=== PATIENT | female | born 1985 | race Two or more races ===

== ENCOUNTER 2021-08-23 10:09 | Outpatient (REF) | payer MEDICAID, SELFPAY ==
[2021-08-23 10:55] LABS: Binax Internal Control QC Valid; Binax Now Covid-19 Ag Positive (Negative)
== END 2021-08-23 10:10 | disposition home or self-care (01) ==
LOC: HO.LAB 10:09
PROVIDERS: Visit Provider Internal Medicine
DX: Z20.822 Contact with and (suspected) exposure to COVID-19 (principal)
CPT/HCPCS: 36415; C9803

== ENCOUNTER 2022-03-15 11:25 | Emergency (ER) | payer OTHER, SELFPAY ==
--- NOTE | ~2022-03-15 | CT_ITS ---
EXAMINATION: CT HEAD WITHOUT CONTRAST CLINICAL INFORMATION: Right upper extremity weakness 4 hours ago, hypertension. COMPARISON: None TECHNIQUE: Imaging was performed from the skull base to vertex without intravenous administration of contrast. This CT examination was performed using dose optimization techniques as appropriate, variously including the following: *Automated exposure control *Adjustment of mA and/or kV according to patient size (this includes techniques or standardized protocols for targeted exams where dose is matched to indication/reason for exam; i.e. extremities or head) *Use of iterative reconstruction technique Total exam dose length product: 759 mGy-cm FINDINGS: No intra or extra-axial fluid collection, hemorrhage, or mass. No ventriculomegaly. No midline shift or herniation. Basal cisterns are patent. Chavez-white matter differentiation is maintained. No territorial encephalomalacia. No significant volume loss. There is no abnormal attenuation within the brain parenchyma. No calvarial fracture or soft tissue abnormality. Small mucous retention cyst in the right maxillary antrum. Paranasal sinuses and mastoid air cells otherwise normally aerated. CT/CT head/brain wo con IMPRESSION: 1. No acute intracranial pathology.
[2022-03-15 12:04] VITALS: BP 221/103; PULSE 110; RESP 18; TEMP 36.7; O2SAT 99; BMI 49.7
--- NOTE | 2022-03-15 12:09 | ECG_ITS ---
Test Reason : HYPERTENSION Blood Pressure : / mmHG Vent. Rate : 114 BPM Atrial Rate : 114 BPM P-R Int : 148 ms QRS Dur : 070 ms QT Int : 328 ms P-R-T Axes : 048 -03 019 degrees QTc Int : 452 ms Sinus tachycardia Possible Left atrial enlargement Borderline ECG No previous ECGs available Referred By: Generic ED Physician Electronically Signed By:JUANPABLO MARTINEZ
[2022-03-15 12:36] LABS: MANUAL DIFF FLAG NO
[2022-03-15 12:38] VITALS: BP 185/104; PULSE 94
--- NOTE | 2022-03-15 12:38 | ED_ITS ---
HPI - Neuro Symptoms/Deficit General Chief Complaint: Neuro Symptoms/Deficit Stated Complaint: numbness/weakness in R arm Time Seen by Provider: 03/15/22 12:37 Source: patient Mode of arrival: ambulatory History of Present Illness HPI Narrative: 36-year-old female with presentation of complaints of numbness an bilateral finger tips for a proximally 1 week and then this morning at 08:00 she states that she woke up and found that her right upper extremity was weak and she was unable to hold her hair brush to brush her hair. Patient states that she waited and her symptoms gradually improved but she continued with the tingling and st ates that is also in her left hand. Patient states she had difficulties with high blood pressure during her and has not been to see a doctor afterwards. Her child is now 3 years old. She otherwise denies dizziness, visual disturbance, speech changes and denies any shortness of breath or chest pain. She has had a headache for 1 week. Related Data Allergies Allergy/AdvReac Type Severity Reaction Status Date / Time No Known Allergies Allergy Unknown Verified 03/15/22 12:04 [No Known Allergies*] Review of Systems Review of Systems: Pertinent positives and negatives as stated in HPI 10 point review of systems is otherwise negative. PMFSH Past Medical History Source: nursing notes reviewed Social History Social History Patient Tobacco Use Status: Never used Tobacco Use of substances other than those prescribed or required for medical reasons: Yes Substance Use Type: Marijuana Substance Use Frequency: Socially Advance Directives: No Advance Directives Information Provided: No Physical Exam Vital Signs: Vital Signs: Last Vital Signs Temp 98.0 F 03/15/22 12:04 Pulse 87 03/15/22 14:47 Resp 12 03/15/22 14:47 BP 156/85 H 03/15/22 14:47 Pulse Ox 97 03/15/22 14:47 O2 Del Method 03/15/22 14:47 BMI result Body Mass Index 49.7 VITAL SIGNS: Reviewed. GENERAL: Elevated BMI,Well developed, well nourished, in no acute distress. HEAD: Normocephalic/atraumatic EYES: PERRLA, EOMI EARS: Ext canals without abnormality OROPHARYNX: no oral lesions noted, posterior pharynx clear LUNGS: Normal breath sounds. No adventitious sounds or accessory muscle use. SpO2<99> CARDIOVASCULAR: Regular rate and rhythm without noted murmurs, no JVD or lower extremity edema. ABDOMEN: Soft, non-tender, non-distended with bowel sounds. MUSCULOSKELETAL: No tenderness, deformities, or effusions noted on gross inspection. EXTREMITIES: No cyanosis, clubbing or edema. SKIN: Inspection of the skin reveals no rashes NEUROLOGIC: Alert and oriented x 4. Strength and sensation to light touch were grossly intact x 4, no facial asymmetry, no pronator drift, cranial nerves 2-12 are grossly intact. Hand first cook is currently 5/5 and symmetrical. Course Course Course Narrative: 36-year-old female with history and clinical presentation consistent with suspected hypertensive urgency and subsequent neurologic deficits that have since resolved. However, will pursue CT of the head and full lab workup. Review of all investigations without acute findings to better explain patient's symptoms. Although patient NIH score was 0 on arrival, the symptoms are definitely consistent with TIA likely secondary to malignant hypertension. Patient was given aspirin and will be admitted. MDM - Neuro Symptoms/Deficit Lab Data Result diagrams: 03/15/22 12:31 03/15/22 12:31 Labs: Lab Results 03/15/22 03/15/22 03/15/22 Range/Units 12:31 12:31 12:31 WBC 8.1 (4.8-10.8) X10*3/uL RBC 4.92 (4.20-5.50) X10*6/uL Hgb 14.2 (12.0-16.0) g/dl Hct 41.4 (37.0-47.0) % MCV 84.1 (80.0-98.0) fL MCH 28.9 (27.0-33.0) pg MCHC 34.3 (31.0-35.0) g/dl RDW 13.0 (11.0-16.0) % Plt Count 239 (160-400) X10*3/uL MPV 11.1 (9.4-12.3) fL Immature Gran % (Auto) 0.6 H (0.0-0.4) % Neut % (Auto) 57.4 (45-73) % Lymph % (Auto) 32.7 (20-40) % [place] % (Auto) 6.6 (2-11) % Eos % (Auto) 2.5 (0-4) % Baso % (Auto) 0.2 (0-2) % Lymph # (Auto) 2.6 (1.2-4.9) X10*3/uL [place] # (Auto) 0.5 (0.1-1.2) X10*3/uL Eos # (Auto) 0.2 (0.0-0.4) X10*3/uL Baso # (Auto) 0.0 (0.0-0.2) X10*3/uL Abs Immat Gran (auto) 0.05 H (0.00-0.03) X10*3/uL Absolute Neuts (auto) 4.6 (2.0-8.3) x10*3/uL Absolute Nucleated RBC 0.000 (0.0-0.012) X10*3/uL Nucleated RBC % (auto) 0.0 (0.0-0.2) /100WBC PT (10.0-13.1) SEC INR (0.9-1.1) Sodium 140 (135-145) mmol/L Potassium 3.7 (3.3-5.1) mmol/L Chloride 105 (96-108) mmol/L Carbon Dioxide 26 (22-29) mmol/L Anion Gap 13 (12-20) BUN 9 (9-16) mg/dL Creatinine 0.72 (0.5-1.4) mg/dL Estim Creat Clear Calc 126.5 Estimated GFR > 60 Random Glucose 105 (60-115) mg/dL Calcium 9.1 (8.4-10.2) mg/dL Magnesium 1.8 (1.6-2.6) mg/dL Troponin I High Sens < 3.5 (<3.5-17.0) ng/L Beta HCG, Quant < 2 mIU/mL Urine Color Urine Appearance Urine pH (5.0-8.0) Ur Specific [place] (1.005-1.025) Urine Protein (NEG-TRACE) MG/DL Urine Glucose (UA) (NEG) MG/DL Urine Ketones (NEG) MG/DL Urine Blood (NEG) Urine Nitrite (NEG) Ur Leukocyte Esterase (NEG) Urine Test (NEGATIVE) 03/15/22 03/15/22 03/15/22 Range/Units 13:33 14:01 14:01 WBC (4.8-10.8) X10*3/uL RBC (4.20-5.50) X10*6/uL Hgb (12.0-16.0) g/dl Hct (37.0-47.0) % MCV (80.0-98.0) fL MCH (27.0-33.0) pg MCHC (31.0-35.0) g/dl RDW (11.0-16.0) % Plt Count (160-400) X10*3/uL MPV (9.4-12.3) fL Immature Gran % (Auto) (0.0-0.4) % Neut % (Auto) (45-73) % Lymph % (Auto) (20-40) % [place] % (Auto) (2-11) % Eos % (Auto) (0-4) % Baso % (Auto) (0-2) % Lymph # (Auto) (1.2-4.9) X10*3/uL [place] # (Auto) (0.1-1.2) X10*3/uL Eos # (Auto) (0.0-0.4) X10*3/uL Baso # (Auto) (0.0-0.2) X10*3/uL Abs Immat Gran (auto) (0.00-0.03) X10*3/uL Absolute Neuts (auto) (2.0-8.3) x10*3/uL Absolute Nucleated RBC (0.0-0.012) X10*3/uL Nucleated RBC % (auto) (0.0-0.2) /100WBC PT 11.4 (10.0-13.1) SEC INR 1.0 (0.9-1.1) Sodium (135-145) mmol/L Potassium (3.3-5.1) mmol/L Chloride (96-108) mmol/L Carbon Dioxide (22-29) mmol/L Anion Gap (12-20) BUN (9-16) mg/dL Creatinine (0.5-1.4) mg/dL Estim Creat Clear Calc Estimated GFR Random Glucose (60-115) mg/dL Calcium (8.4-10.2) mg/dL Magnesium (1.6-2.6) mg/dL Troponin I High Sens (<3.5-17.0) ng/L Beta HCG, Quant mIU/mL Urine Color YELLOW Urine Appearance HAZY Urine pH 7.0 (5.0-8.0) Ur Specific [place] 1.020 (1.005-1.025) Urine Protein NEG (NEG-TRACE) MG/DL Urine Glucose (UA) NEG (NEG) MG/DL Urine Ketones NEG (NEG) MG/DL Urine Blood NEG (NEG) Urine Nitrite NEG (NEG) Ur Leukocyte Esterase NEG (NEG) Urine Test NEGATIVE (NEGATIVE) ECG Data Attestation: I personally reviewed and interpreted this ECG as follows: Prior ECG tracings: not available for review Interpretation: Sinus tachycardia, HR- 114, no STEMI, HI /QRS /QTC are within normal limits. Discharge Plan Discharge Clinical Impression: TIA (transient ischemic attack), Malignant hypertension Patient Disposition: Still a Patient
[2022-03-15 12:45] LABS: Basophils Percent Auto 0.2 % (0-2); Eosinophils Absolute Auto 0.2 X10*3/uL (0.0-0.4); Eosinophils Percent Auto 2.5 % (0-4); Hematocrit 41.4 % (37.0-47.0); Hemoglobin 14.2 g/dl (12.0-16.0); Imm Gran Abs Auto 0.05 X10*3/uL (0.00-0.03); Imm Gran Pct Auto 0.6 % (0.0-0.4); Lymphocytes Absolute Auto 2.6 X10*3/uL (1.2-4.9); Lymphocytes Percent Auto 32.7 % (20-40); Mean Corpuscular HGB Conc 34.3 g/dl (31.0-35.0); Mean Corpuscular Hemoglobin 28.9 pg (27.0-33.0); Mean Corpuscular Volume 84.1 fL (80.0-98.0); Mean Platelet Volume 11.1 fL (9.4-12.3); Monocytes Absolute Auto 0.5 X10*3/uL (0.1-1.2); Monocytes Percent Auto 6.6 % (2-11); Neutrophils Absolute Auto 4.6 x10*3/uL (2.0-8.3); Neutrophils Percent Auto 57.4 % (45-73); Platelet Count 239 X10*3/uL (160-400); Red Blood Count 4.92 X10*6/uL (4.20-5.50); White Blood Count 8.1 X10*3/uL (4.8-10.8)
[2022-03-15 12:48] VITALS: BP 170/102; PULSE 103; RESP 18
[2022-03-15 12:53] LABS: Anion Gap 13 (12-20); Blood Urea Nitrogen 9 mg/dL (9-16); Calcium 9.1 mg/dL (8.4-10.2); Carbon Dioxide 26 mmol/L (22-29); Chloride 105 mmol/L (96-108); Creatinine Clr Calc Pharmacy 126.5; Estimated Glomerular Filt Rate > 60; Glucose Random 105 mg/dL (60-115); Potassium 3.7 mmol/L (3.3-5.1); Sodium 140 mmol/L (135-145)
[2022-03-15 12:59] LABS: Troponin-I High Sensitivity < 3.5 ng/L (<3.5-17.0)
[2022-03-15 13:30] LABS: Magnesium 1.8 mg/dL (1.6-2.6)
[2022-03-15 13:36] LABS: HCG Quantitative < 2 mIU/mL
[2022-03-15 13:52] LABS: Prothrombin Time 11.4 SEC (10.0-13.1)
[2022-03-15 14:19] LABS: Appearance Urine HAZY; Color Urine YELLOW; Glucose Urine UA NEG (NEG); Leukocyte Esterase Urine NEG (NEG); Nitrite Urine NEG (NEG); Urine Blood NEG (NEG); Urine Ketones NEG (NEG); Urine Protein NEG (NEG-TRACE)
[2022-03-15 14:21] LABS: UPreg QC Valid YES; Urine Pregnancy NEGATIVE (NEGATIVE)
[2022-03-15 14:47] VITALS: BP 156/85; PULSE 87; RESP 12; O2SAT 97
[2022-03-15 16:08] LABS: IDNOW Serial# 55D5AD1C
[2022-03-15 16:09] LABS: COVID-19 Test Negative (Negative)
[2022-03-15] MEDS: Aspirin 81 MG TAB.CHEW PO (16:12)
[2022-03-15 16:13] VITALS: BP 143/88; PULSE 104
[2022-03-15 17:33] VITALS: BP 148/78; PULSE 90; RESP 18
== END 2022-03-15 18:49 | disposition home or self-care (01) ==
PROVIDERS: Student in an Organized Health Care Education/Training Program; Emergency Provider Emergency Medicine
DX: I10 Essential (primary) hypertension (principal); R00.0 Tachycardia, unspecified; R20.0 Anesthesia of skin; R53.1 Weakness; Z20.822 Contact with and (suspected) exposure to COVID-19; F12.90 Cannabis use, unspecified, uncomplicated
CPT/HCPCS: 36415; 70450; 80048; 81003; 81025; 83735; 84484; 84702; 85025; 85610; 87635; 93005; 99284; 99285

== ENCOUNTER 2022-04-05 02:56 | Inpatient (IN) | payer OTHER, SELFPAY ==
[2022-04-05] VITALS (15 sets, daily range): BP systolic 121–196; BP diastolic 65–120; PULSE 64–145; RESP 16–26; TEMP 36.3–37.2; O2SAT 96–100; BMI 49.1
--- NOTE | ~2022-04-05 | CT_ITS ---
EXAMINATION: CT HEAD WITHOUT CONTRAST CLINICAL INFORMATION: Unable to move right hand, rule out intracranial abnormality. COMPARISON: 03/15/[address] scan. TECHNIQUE: Contiguous axial imaging was performed from the skull base to vertex without intravenous administration of contrast. Coronal and sagittal reformatted images were obtained. This CT examination was performed using dose optimization techniques as appropriate, variously including the following: *Automated exposure control *Adjustment of mA and/or kV according to patient size (this includes techniques or standardized protocols for targeted exams where dose is matched to indication/reason for exam; i.e. extremities or head) *Use of iterative reconstruction technique DLP: 737 mGy-cm FINDINGS: There is no evidence of acute intracranial hemorrhage or territorial infarction. No abnormal mass effect or midline shift is seen. Chavez to white matter differentiation is well preserved. No extra-axial fluid collections are identified. The ventricles are normal in size. There is no abnormal attenuation within the brain parenchyma. The osseous structures and soft tissues are normal. The right maxillary polyp versus retention cyst is seen along the right posterior margin measuring 1.2 cm without significant change (image 98, series 6. A smaller polyp is seen towards the base. CT/CT head/brain wo con IMPRESSION: No acute intracranial pathology.
--- NOTE | ~2022-04-05 | MR_ITS ---
EXAMINATION: MRI BRAIN WITHOUT CONTRAST CLINICAL INFORMATION: Right hand weakness. COMPARISON: CT scan of the head 04/05/2022, 03/15/2022. TECHNIQUE: Multiplanar MR imaging of the brain was performed without contrast. FINDINGS: There are multiple foci of restricted diffusion involving the cortical funk matter of the left superior parietal lobule near the vertex and the left frontal lobe. There are also scattered foci of restricted diffusion involving the left centrum semiovale primarily distributed between the major vascular territories of the left hemisphere. These findings are superimposed upon a few scattered chronic small vessel ischemic changes within the periventricular white matter. No pathological magnetic susceptibility artifact. Intracranial vascular flow voids are grossly maintained. There is no intracranial mass effect or midline shift. No abnormal extra-axial collection. Lateral and third ventricles are normal. No hydrocephalus. Midline structures including the cervicomedullary junction are normal. No acute bone marrow signal changes. There is no mastoid middle ear effusion. Mild paranasal sinus mucosal thickening within the ethmoid air cells and there is a retention cyst within the alveolar recess of the right maxillary sinus. Globes and orbits are symmetric. MR/MR head/brain wo con IMPRESSION: There are multiple acute watershed infarcts primarily distributed between the major vascular territories of the left cerebral hemisphere involving the frontal and parietal lobes. These acute findings are superimposed upon a few scattered chronic small vessel ischemic changes within the periventricular white matter. No intracranial mass effect or hydrocephalus. No evidence of acute hemorrhage.
--- NOTE | ~2022-04-05 | CT_ITS ---
EXAMINATION: CT angio head neck stroke CLINICAL INFORMATION: Right hand weakness. Abnormal brain MRI. COMPARISON: Brain MRI 04/05/2022. TECHNIQUE: Cancellation Clerk images were obtained. A CT angiogram of the head and neck was performed in the arterial phase after the intravenous administration of 75 mL Omnipaque 350. Delayed postcontrast images of the head were also obtained. MIP reconstructions were generated in multiple orientations at the acquisition workstation. Multiple three-dimensional surface rendered images and maximum intensity projection images were generated on a dedicated 3-D lab workstation. Arterial stenoses are measured in accordance with NASCET criteria or similar method if applicable. This CT examination was performed using dose optimization techniques as appropriate, including one or more of the following: Automated exposure control, iterative reconstruction, and adjustment of technique factors (mA and/or kVp) according to patient size (this includes techniques or standardized protocols for targeted exams where dose is matched to indication/reason for exam). Total exam dose-length product 1552 mGy-cm FINDINGS: Head: There is loss of funk-white matter differentiation involving the left superior parietal lobule and a few small foci of hypoattenuation within the cortical funk matter of the left frontal lobe near the vertex. These findings coincide with the known acute infarcts better demonstrated on recent MR imaging of the brain from 04/05/2022. Postcontrast images reveal no abnormal intracranial mass or enhancement. There is no intracranial mass effect or midline shift. Lateral and third ventricles are normal. No hydrocephalus. The calvarium and skull base are intact. No mastoid or middle ear effusion. No active paranasal sinus disease with exception of a small retention cysts within the right maxillary sinus. CT angiogram neck: The aortic arch apex is normal. Origins of the major aortic branches are widely patent. Common carotid arteries and the carotid bifurcations are normal. No stenosis of the extracranial internal carotid arteries. The cervical segments of the vertebral arteries as well as their origins are patent. CT angiogram head: There is focal high-grade stenosis involving the left internal carotid artery at the junction of the cavernous and supraclinoid segments best depicted on axial image 384 of 1087 series 7. The right intracranial internal carotid artery is patent. There is also an anteriorly projecting contour abnormality involving the supraclinoid segment of left internal carotid artery measuring 2.3 mm from base apex that may either represent an aneurysm or prominent vascular infundibulum. There is high-grade stenosis or occlusion of the left ventral dural vertebral artery. The dominant right vertebral artery is patent and continues as the basilar. Anterior, middle, and posterior cerebral artery complexes are otherwise normal. Other: Soft tissues of the neck including the thyroid gland are normal. Grossly no pathologically enlarged cervical lymph nodes. Visualized lung apices are clear. There is no acute osseous finding. Specifically no worrisome lytic or blastic osseous lesion. Grossly no evidence of spinal canal compromise. CT/CT angio head neck stroke IMPRESSION: There is focal high-grade narrowing involving the left intracranial internal carotid artery at the junction of the cavernous and supraclinoid segments which provides an explanation for the patient's acute watershed infarcts. The left intradural vertebral artery is hypoplastic or occluded. The dominant right vertebral artery continues as the basilar. Otherwise no intracranial large vessel occlusion. No stenosis of the cervical carotid or vertebral arteries. Of note there is an inferiorly projecting contour abnormality involving the supraclinoid segment of the left internal carotid artery measuring 2.3 mm from base apex that may either represent a vascular infundibulum or small aneurysm.
--- NOTE | ~2022-04-05 | XR_ITS ---
EXAMINATION: XR CHEST CLINICAL INFORMATION: Stroke. COMPARISON: None TECHNIQUE: Frontal view of the chest was obtained. FINDINGS: No significant abnormality is noted involving the heart, lungs, mediastinum, bony thorax or soft tissues. XR/XR chest 1V IMPRESSION: No acute cardiopulmonary process.
--- NOTE | 2022-04-05 03:19 | ECG_ITS ---
Test Reason : NUMBINESS Blood Pressure : / mmHG Vent. Rate : 110 BPM Atrial Rate : 110 BPM P-R Int : 130 ms QRS Dur : 066 ms QT Int : 338 ms P-R-T Axes : 059 002 -02 degrees QTc Int : 457 ms Sinus tachycardia Possible Inferior infarct , age undetermined Abnormal ECG When compared with ECG of 15-MAR-2022 12:17, No significant change was found Referred By: Generic ED Physician Electronically Signed By:EMILY SEGOVIA
--- NOTE | 2022-04-05 07:00 | ED_ITS ---
HPI - General Adult General Chief complaint: General Medical Stated complaint: numbness on right hand , headaches Time Seen by Provider: 04/05/22 06:59 Source: patient Mode of arrival: ambulatory Limitations: no limitations History of Present Illness HPI narrative: 36-year-old female came in with complaint of numbness and weakness of the right hand started since 19:00 last night after she woke up from sleep, no recent trauma or injury to the right hand, no other neurological symptoms, otherwise able to ambulate with steady gait, able to speak in normal pattern, no weakness in the right arm or forearm just the right hand distal to the right wrist, patient is right-hand dominant. Patient was seen in the ED 20 days ago for similar presentation, was diagnosed with musculoskeletal problem likely carpal tunnel syndrome patient work as a [employer]. Patient had similar symptoms 20 days ago but the weakness improved, patient had underlying carpal tunnel syndrome and thawed that the numbness is due to the carpal tunnel. this time symptoms have been persistent since last night. Patient does not take contraceptive pills or any hormonal therapy, no family history of strokes in particular at young age, past medical history only significant for hypertension and patient is compliant with her medication. Patient had CT head 20 days ago which was unremarkable for stroke. Related Data Previous Rx's Medication Instructions Recorded valsartan 80 mg tablet 80 mg PO DAILY #30 tabs 03/15/22 Allergies Allergy/AdvReac Type Severity Reaction Status Date / Time No Known Allergies Allergy Unknown Verified 03/15/22 12:04 [No Known Allergies*] Review of Systems Review of Systems: All other systems are reviewed and are negative Constitutional: Reports as per HPI and Reports no additional constitutional complaints Eyes: Reports as per HPI and Reports no additional eye complaints Reports system reviewed and no additional complaints, except as documented Cardiovascular: Reports as per HPI and Reports no additional cardiovascular complaints Respiratory: Reports as per HPI and Reports no additional respiratory complaints Gastrointestinal: Reports as per HPI and Reports no additional gastrointestinal complaints Genitourinary: Reports no additional female genitourinary complaints Musculoskeletal: Reports no additional musculoskeletal complaints Skin/Breast: Reports system reviewed and no additional complaints, except as docu Psychiatric: Reports no additional psychiatric complaints Endocrine: Reports no additional endocrine complaints Hematologic/Lymphatic: Reports no additional hematologic/lymphatic complaints Allergic/Immunologic: Reports no additional allergic/immunologic complaints Reports system reviewed and no additional complaints, except as documented and Reports Abnormal speech present [facility] Past Medical History Medical History (Updated 04/05/22 @ 15:41 by Juliocesar Hull MD) Hypertension Morbid obesity Surgical History (Updated 04/05/22 @ 15:47 by Juliocesar Hull MD) Previous section Family History Family History (Updated 04/05/22 @ 15:47 by Juliocesar Hull MD) Other No family history of cerebrovascular accident (CVA) Social History Social History Patient Tobacco Use Status: Never used Tobacco Substance Use Type: Marijuana Advance Directives: No Physical Exam ED Vital Signs: Vital Signs - 24 hr 04/05/22 03:28 04/05/22 04:57 04/05/22 06:23 Temperature 97.4 F 98.0 F 98.2 F Pulse Rate 115 H 64 100 Respiratory Rate 16 16 16 Blood Pressure 165/85 H 164/76 H 159/66 H Pulse Oximetry 98 98 98 Oxygen Delivery Method Room Air Room Air Room Air 04/05/22 08:00 04/05/22 09:42 04/05/22 10:00 Temperature 98.3 F 98.3 F 98.5 F Pulse Rate 90 68 90 Respiratory Rate 18 16 16 Blood Pressure 160/79 H 121/81 125/70 Pulse Oximetry 98 97 98 Oxygen Delivery Method Room Air Room Air Room Air 04/05/22 12:00 04/05/22 14:00 04/05/22 14:20 Temperature 97.7 F 98.7 F 98.9 F Pulse Rate 100 70 108 H Respiratory Rate 17 17 Blood Pressure 137/65 137/69 196/120 H Pulse Oximetry 100 98 96 Oxygen Delivery Method Room Air Room Air Room Air 04/05/22 14:47 04/05/22 15:32 Temperature 98.8 F Pulse Rate 103 H 120 H Respiratory Rate 16 20 Blood Pressure 187/120 H 150/71 H Pulse Oximetry 96 97 Oxygen Delivery Method Room Air Room Air BMI result Body Mass Index 49.1 Vital signs have been reviewed as appeared to be correct. Blood pressure normal. Heart rate normal. Respiration rate normal. Temperature normal. Oxygen saturation normal. Appearance: Alert. Oriented X3. No acute distress. Head: Normal external exam. Normocephalic. Atraumatic. No Fisher signs noted. No raccoon eyes noted Eyes: PERRLA. EOMI. Conjunctiva and sclera normal. Eyelids normal. ENT: TM's Normal. Pharynx normal. Uvula midline. Moist mucous membranes. No trismus noted. No drooling noted. No muffled voice noted. Neck: Normal inspection. Neck supple. FROM. No adenopathy. Thyroid Normal. No meningeal signs. No neck mass noted. CVS: Normal heart rate and rhythm. Heart sound normal. No murmurs noted. Pulses normal throughout. Respiratory: No respiratory distress. Painless inspiration. Breath sounds normal. No wheezes/rales/rhonchi noted. Chest nontender. No accessory muscle usage noted or decreased air movement noted. Abdomen: Soft and nontender. Bowel sounds normal in all 4 quadrants. No distention noted. No organomegaly noted. No visible injury noted. Back: No CVA tenderness. Full range of motion noted. Skin: Skin warm and dry. Normal skin color. Normal skin turgor. No rashes/lesions/lacerations noted. Extremities: Right hand: Good radial pulse, cap refill less than 2 seconds, increased numbness in the right hand, significant weakness on flexion and ext ension distal to the wrist. Neuro: Oriented X 3. Cranial nerve exam: II-XII are grossly intact No motor deficit. No sensory deficit. Reflexes normal. Right hand weakness as described above. NIH Stroke Scale Level of Consciousness: Alert Level of Consciousness Questions: Answers both questions correctly Level of Consciousness Commands: Performs both tasks correctly Best Gaze: Normal Visual: No visual loss Facial Palsy: Normal Motor Arm (Right): No effort against gravity (Right hand at the right wrist) Motor Arm (Left): No drift Motor Leg (Right): No drift Motor Leg (Left): No drift Limb Ataxia: Absent Sensory: Mild to moderate sensory loss (Right hand and right arm) Best Language: No aphasia Dysarthia: Normal Extinction and Inattention: No abnormality Score: 4 Course Course Course Narrative: This is unfortunate 36-year-old female came in for evaluation of right hand weakness, and numbness, patient been having chronic numbness secondary to right carpal tunnel syndrome on the right hand, NIH score is 4 given 3 for significant weakness on the right hand and 1 for decreased light touch sensation in the right forearm, patient initially presented to the ED at 03:00 about 8 hours after the symptoms started which make the patient out of the window for thrombolysis, patient had a CT head which was unremarkable then we proceeded to MRI of the head which 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 Initially patient was given Solu-Medrol aiming to treat severe carpal tunnel syndrome. Reevaluation(s) Reevaluation #1: The case discussed with Dr. Carpenter the intervention neurologist at [facility], patient is not a candidate for mechanical thrombectomy since MRI DWI positive for stroke changes. Transfer was declined. Case discussed with Dr. Larios recommended to start the patient on subQ heparin, and gradual management of blood pressure, and admit. Time: 14:15 Medical Decision Making Medical Records Medical records reviewed: Yes I reviewed the patient's medical records. Lab Data Lab results reviewed: Yes I reviewed the patient's lab results. Result diagrams: 04/05/22 07:56 04/05/22 07:56 Labs: Lab Results 04/05/22 04/05/22 04/05/22 Range/Units 07:56 07:56 07:56 WBC 10.4 (4.8-10.8) X10*3/uL RBC 5.07 (4.20-5.50) X10*6/uL Hgb 14.5 (12.0-16.0) g/dl Hct 42.5 (37.0-47.0) % MCV 83.8 (80.0-98.0) fL MCH 28.6 (27.0-33.0) pg MCHC 34.1 (31.0-35.0) g/dl RDW 13.1 (11.0-16.0) % Plt Count 270 (160-400) X10*3/uL MPV 10.8 (9.4-12.3) fL Immature Gran % (Auto) 0.5 H (0.0-0.4) % Neut % (Auto) 73.5 H (45-73) % Lymph % (Auto) 19.8 L (20-40) % [place] % (Auto) 5.3 (2-11) % Eos % (Auto) 0.6 (0-4) % Baso % (Auto) 0.3 (0-2) % Lymph # (Auto) 2.1 (1.2-4.9) X10*3/uL [place] # (Auto) 0.6 (0.1-1.2) X10*3/uL Eos # (Auto) 0.1 (0.0-0.4) X10*3/uL Baso # (Auto) 0.0 (0.0-0.2) X10*3/uL Abs Immat Gran (auto) 0.05 H (0.00-0.03) X10*3/uL Absolute Neuts (auto) 7.6 (2.0-8.3) x10*3/uL Absolute Nucleated RBC 0.000 (0.0-0.012) X10*3/uL Nucleated RBC % (auto) 0.0 (0.0-0.2) /100WBC Sodium 139 (135-145) mmol/L Potassium 4.3 (3.3-5.1) mmol/L Chloride 106 (96-108) mmol/L Carbon Dioxide 23 (22-29) mmol/L Anion Gap 14 (12-20) BUN 11 (9-16) mg/dL Creatinine 0.80 (0.5-1.4) mg/dL Estim Creat Clear Calc 115.3 Estimated GFR > 60 Random Glucose 132 H (60-115) mg/dL Calcium 9.0 (8.4-10.2) mg/dL Total Bilirubin 0.2 (0.0-1.0) mg/dL Direct Bilirubin < 0.2 (0.0-0.5) mg/dL AST 22 (5-31) U/L ALT 49 H (0-31) U/L Alkaline Phosphatase 86 (39-117) U/L Troponin I High Sens < 3.5 (<3.5-17.0) ng/L Total Protein 7.8 (6.5-8.0) g/dL Albumin 4.5 (3.5-5.0) g/dL Lipase 24 (8-78) U/L Imaging Data CT scan - head: Attestation: I personally reviewed and interpreted this imaging study as follows: Radiologist's impression: There is no evidence of acute intracranial hemorrhage or territorial infarction. No abnormal mass effect or midline shift is seen. Chavez to white matter differentiation is well preserved. No extra-axial fluid collections are identified. The ventricles are normal in size. There is no abnormal attenuation within the brain parenchyma. The osseous structures and soft tissues are normal. The right maxillary polyp versus retention cyst is seen along the right posterior margin measuring 1.2 cm without significant change (image 98, series 6. A smaller polyp is seen towards the base. ? Head MRI: Attestation: I personally reviewed and interpreted this imaging study as follows: Radiologist's impression: There are multiple acute watershed infarcts primarily distributed between the major vascular territories of the left cerebral hemisphere involving the frontal and parietal lobes. These acute findings are superimposed upon a few scattered chronic small vessel ischemic changes within the periventricular white matter. No intracranial mass effect or hydrocephalus. No evidence of acute hemorrhage.? Critical Care Time Critical Care Time Critical Care Time: Yes Total Critical Care Time: 60 Attestation: I spent 60 minutes providing critical care service to the patient, this including time spent at the bedside to evaluate the patient, reassess the patient, monitoring vital signs, review labs, and radiographic studies, counseling the patient/family, discussing the case with consultants, disposition the patient. Discharge Plan Discharge Clinical Impression: Stroke Patient Disposition: Admitted As Inpatient
[2022-04-05 08:00] LABS: MANUAL DIFF FLAG NO
[2022-04-05 08:01] LABS: Basophils Percent Auto 0.3 % (0-2); Eosinophils Absolute Auto 0.1 X10*3/uL (0.0-0.4); Eosinophils Percent Auto 0.6 % (0-4); Hematocrit 42.5 % (37.0-47.0); Hemoglobin 14.5 g/dl (12.0-16.0); Imm Gran Abs Auto 0.05 X10*3/uL (0.00-0.03); Imm Gran Pct Auto 0.5 % (0.0-0.4); Lymphocytes Absolute Auto 2.1 X10*3/uL (1.2-4.9); Lymphocytes Percent Auto 19.8 % (20-40); Mean Corpuscular HGB Conc 34.1 g/dl (31.0-35.0); Mean Corpuscular Hemoglobin 28.6 pg (27.0-33.0); Mean Corpuscular Volume 83.8 fL (80.0-98.0); Mean Platelet Volume 10.8 fL (9.4-12.3); Monocytes Absolute Auto 0.6 X10*3/uL (0.1-1.2); Monocytes Percent Auto 5.3 % (2-11); Neutrophils Absolute Auto 7.6 x10*3/uL (2.0-8.3); Neutrophils Percent Auto 73.5 % (45-73); Platelet Count 270 X10*3/uL (160-400); Red Blood Count 5.07 X10*6/uL (4.20-5.50); Red Cell Distribution Width 13.1 % (11.0-16.0); White Blood Count 10.4 X10*3/uL (4.8-10.8)
[2022-04-05 08:16] LABS: Alanine Aminotransferase 49 U/L (0-31); Albumin Level 4.5 g/dL (3.5-5.0); Alkaline Phosphatase 86 U/L (39-117); Anion Gap 14 (12-20); Aspartate Amino Transferase 22 U/L (5-31); Bilirubin Direct < 0.2 mg/dL (0.0-0.5); Bilirubin Total 0.2 mg/dL (0.0-1.0); Blood Urea Nitrogen 11 mg/dL (9-16); Carbon Dioxide 23 mmol/L (22-29); Chloride 106 mmol/L (96-108); Creatinine Clr Calc Pharmacy 115.3; Estimated Glomerular Filt Rate > 60; Glucose Random 132 mg/dL (60-115); Lipase 24 U/L (8-78); Potassium 4.3 mmol/L (3.3-5.1); Sodium 139 mmol/L (135-145); Total Protein 7.8 g/dL (6.5-8.0)
[2022-04-05 08:22] LABS: Troponin-I High Sensitivity < 3.5 ng/L (<3.5-17.0)
[2022-04-05] MEDS: methylPREDNISolone Sod Succ 125 MG/2 ML VIAL IVPUSH (09:28)
[2022-04-05] MEDS: LORazepam 1 MG TABLET PO (13:09)
[2022-04-05] MEDS: iohexoL 350 MG/ML 100 ML INFUS..BTL 70 ML IV (13:42)
--- NOTE | 2022-04-05 14:33 | PC.NURSE ---
Provider asked to reach [facility] to possible transfer to Neuro Intervention. Call was placed at [phone] awaiting call back.
--- NOTE | 2022-04-05 14:56 | PC.NURSE ---
Addendum entered by Celia Alonos RN 04/05/22 15:01: Pt ambulating independently and steadily with no issue. Denies dizziness, nausea. Pt managing own secretions with no issue. Aware of plan for care. Pt hypertensive, HR in low 100s, stating she has not taken rxs this am. MD made aware. Original Note: Pt cont presentation of right arm weakness. No facial droop, oriented x 3. Speech is coherent, Strength equal bila in both legs.
[2022-04-05] MEDS: amLODIPine Besylate 10 MG TABLET PO (15:11)
--- NOTE | 2022-04-05 15:29 | PC.NURSE ---
sinus tach on monitor.
[2022-04-05 15:50] LABS: COVID-19 Test Negative (Negative); IDNOW Serial# 16C4AD1C
--- NOTE | 2022-04-05 16:08 | PHA.MEDREC ---
Pharmacy Consult ? Medication Reconciliation Pharmacy has completed the medication reconciliation.
--- NOTE | 2022-04-05 16:16 | P.HPHOSP_ITS ---
History of Present Illness Date of Service: 04/05/22 Chief Complaint: Right hand weakness 36-year-old female presented with right hand weakness. Patient states that at 19:00 on day prior to presentation she experienced sudden onset of right handed weakness, inability to pressure here. Associated with numbness and tingling along her right arm. This was similar to presentation that she had on 03/15/2022 which had quickly resolved by time of presentation to the ED on that date and was diagnosis carpal tunnel. On current presentation symptoms did not resolve. In ED she was noted to be significantly hypertensive with systolic blood pressures up to 200. MRI showed acute watershed infarcts in the left parietal and frontal lobes and CTA showed left intracranial internal carotid stenosis. Due to timing window and appearance of CVA on MRI patient was deemed not to be candidate for intervention. Review of Systems Review of Systems: Constitutional: Denies fever, denies Chills Eyes: denies blurry vision ENT: denies sore throat CVS: denies chest pain Respiratory: has AURORA, does not tolerate cpap GI: no abdominal pain : denies dysuria MSK: denies neck pain Skin: denies rash Neuro: see hpi Psych: denies suicidal ideation Endocrine: denies heat/cold intolerance Hematologic: denies easy bleeding Allergy: denies hives [facility] Medical History Fatty liver Hypertension Morbid obesity AURORA (obstructive sleep apnea) Family History Other No family history of cerebrovascular accident (CVA) Surgical History Previous section Social History Patient Tobacco Use Status: Never used Tobacco Substance Use Type: Marijuana Advance Directives: No Advance Directives Information Provided: No Meds Allergies Allergy/AdvReac Type Severity Reaction Status Date / Time No Known Allergies Allergy Unknown Verified 03/15/22 12:04 [No Known Allergies*] Active Medications: Current Medications Atorvastatin Calcium (Atorvastatin Calcium 80 Mg Tablet) 80 mg PO BEDTIME [facility] Enoxaparin Sodium (Enoxaparin Sodium 100 Mg/Ml Syringe) 100 mg SUBCUT Q12H [facility] Pharmacy Consult (Consult Rx Perform Med Rec) 1 each MISCELLANE ONCE PRN PRN Reason: Consult order Pharmacy Consult (Consult Rx Perform Med Rec) 1 each MISCELLANE ONCE PRN PRN Reason: Consult order Physical Exam Vital Signs and Narrative: Vital Signs: Last Vital Signs Temp 98.8 F 04/05/22 14:47 Pulse 120 H 04/05/22 15:32 Resp 20 04/05/22 15:32 BP 150/71 H 04/05/22 15:32 Pulse Ox 97 04/05/22 15:32 O2 Del Method 04/05/22 15:32 BMI result Body Mass Index 49.1 General: no acute distress HEENT: atraumatic Neck: normal to visual inspection CVS: S1, S2, RRR Resp: CTA bilateral Chest: non tender GI: soft, non tender, non distended : no CVA tenderness Skin: no rashes Extremities: no edema Neuro: Oriented X3, right upper extremity, proximal 4/5, distal 0-1/5 Psych: cooperative Results Labs CBC and Chem 7: 04/05/22 07:56 04/05/22 07:56 Labs: Laboratory Results - last 24 hr 04/05/22 04/05/22 04/05/22 07:56 07:56 15:30 MCV 83.8 MCH 28.6 MCHC 34.1 RDW 13.1 Plt Count 270 MPV 10.8 Immature Gran % (Auto) 0.5 H Neut % (Auto) 73.5 H Lymph % (Auto) 19.8 L Lucas % (Auto) 5.3 Eos % (Auto) 0.6 Baso % (Auto) 0.3 Lymph # (Auto) 2.1 Lucas # (Auto) 0.6 Eos # (Auto) 0.1 Baso # (Auto) 0.0 Abs Immat Gran (auto) 0.05 H Absolute Neuts (auto) 7.6 Absolute Nucleated RBC 0.000 Nucleated RBC % (auto) 0.0 Anion Gap 14 Estim Creat Clear Calc 115.3 Estimated GFR > 60 Random Glucose 132 H Calcium 9.0 Total Bilirubin 0.2 Direct Bilirubin < 0.2 AST 22 ALT 49 H Alkaline Phosphatase 86 Total Protein 7.8 Albumin 4.5 Lipase 24 COVID-19 (EFREN) Negative COVID-19 Clin Com See Note Imaging Radiologist's Impressions: Impressions Head CT 04/05/22 08:00 IMPRESSION: No acute intracranial pathology. Brain MRI 08/20/22 11:50 IMPRESSION: There are multiple acute watershed infarcts primarily distributed between the major vascular territories of the left cerebral hemisphere involving the frontal and parietal lobes. These acute findings are superimposed upon a few scattered chronic small vessel ischemic changes within the periventricular white matter. No intracranial mass effect or hydrocephalus. No evidence of acute hemorrhage. Head/Neck CTA 04/05/22 13:46 IMPRESSION: There is focal high-grade narrowing involving the left intracranial internal carotid artery at the junction of the cavernous and supraclinoid segments which provides an explanation for the patient's acute watershed infarcts. The left intradural vertebral artery is hypoplastic or occluded. The dominant right vertebral artery continues as the basilar. Otherwise no intracranial large vessel occlusion. No stenosis of the cervical carotid or vertebral arteries. Of note there is an inferiorly projecting contour abnormality involving the supraclinoid segment of the left internal carotid artery measuring 2.3 mm from base apex that may either represent a vascular infundibulum or small aneurysm. Chest X-Ray 04/05/22 15:31 IMPRESSION: No acute cardiopulmonary process. Assessment and Plan (1) Stroke: Status: Acute Plan 36F with pmh of htn, morbid obesity, aurora presented with right upper extremity weakness, found to have acute cva. acute ischemic left parietal/frontal CVA d/w neuro - high intensity statin, therapeutic lovenox, check echo, monitor on tele, check a1c, lipids, pt/ot eval, no evidence of dysphagia AURORA does not toleate cpap outpatient follow up HTN will hold valsartan for now for permissive hypertension, monitor morbid obesity, fatty liver, htn - metabolic syndrome weight loss recommended full code patient with acute cva ongoing elevated blood pressures, at risk for further strokes due to acuity, htn, obesity, aurora, therefore, will require atleast 2 midnights in hospital. Quality Stroke Does the patient have a stroke diagnosis?: Yes Reason for No Anti-thrombotic by Day Two: N/A - Med Ordered VTE Prior VTE?: No VTE Risk Level:: Medical - moderate - high VTE Device Contraindication: Treatment Not Indicated VTE Drug Contraindication: N/A - Med Ordered
[2022-04-05 16:22] LABS: Cholesterol 173 mg/dL; HDL Cholesterol 39 mg/dL; LDL Cholesterol Calculated 113 mg/dl; Triglycerides 107 mg/dL
[2022-04-05 16:27] LABS: Estimated Average Glucose 114 mg/dL; Hemoglobin A1c % 5.6 %
[2022-04-05] MEDS: Enoxaparin Sodium 100 MG/ML SYRINGE SUBCUT (17:43)
[2022-04-05] MEDS: Atorvastatin Calcium 80 MG TABLET PO (20:45)
[2022-04-06] VITALS (8 sets, daily range): BP systolic 137–174; BP diastolic 69–92; PULSE 86–102; RESP 15–20; TEMP 36.5–37.1; O2SAT 93–98
[2022-04-06] MEDS: Enoxaparin Sodium 100 MG/ML SYRINGE SUBCUT (04:09)
[2022-04-06 06:26] LABS: Anion Gap 15 (12-20); Blood Urea Nitrogen 11 mg/dL (9-16); Calcium 9.4 mg/dL (8.4-10.2); Carbon Dioxide 22 mmol/L (22-29); Chloride 105 mmol/L (96-108); Creatinine Clr Calc Pharmacy 133.6; Estimated Glomerular Filt Rate > 60; Glucose Fasting 137 mg/dL (60-99); Potassium 4.2 mmol/L (3.3-5.1); Sodium 138 mmol/L (135-145)
[2022-04-06 06:42] LABS: Hematocrit 40.7 % (37.0-47.0); Hemoglobin 13.9 g/dl (12.0-16.0); Mean Corpuscular HGB Conc 34.2 g/dl (31.0-35.0); Mean Corpuscular Hemoglobin 28.7 pg (27.0-33.0); Mean Corpuscular Volume 84.1 fL (80.0-98.0); Mean Platelet Volume 11.2 fL (9.4-12.3); Platelet Count 256 X10*3/uL (160-400); Red Blood Count 4.84 X10*6/uL (4.20-5.50); Red Cell Distribution Width 13.2 % (11.0-16.0); White Blood Count 16.4 X10*3/uL (4.8-10.8)
--- NOTE | 2022-04-06 09:42 | P.CNNE_ITS ---
History of Present Illness Data of Consult Service Date: 04/06/22 Primary Care Provider: Unknown Physician HPI Reason for consult: Stroke 36 years old right-handed woman who was working in a [employer] [facility] [employer] came to [facility] 2-3 weeks ago with numbness and weakness of right hand. At that time she was discharged with an impression of possible carpal tunnel syndrome. She said that her hand did not get better but about the night before this admission it got worse and she could not use her hand. She came to emergency room and was initially evaluated for possible stroke but because of significant time delay she was not a candidate for intravenous tPA. Her examination has only revealed right hand weakness and I discussed the case with emergency room physician that it could be a peripheral lesion but also be a stroke and an MRI of brain was recommended. Unfortunately, MRI of brain revealed a relatively moderate to large left middle cerebral artery infarct slow, somewhat patchy suggestive of embolic phenomena, affecting border zone area of frontal and parietal lobes. CTA of brain and neck revealed a high-grade left intracranial internal carotid artery stenosis with either atretic or occluded left vertebral. ER physician talked to the interventionalist at [facility] for any possible intra-arterial treatment but unfortunately that was not an option. She was admitted for further evaluation. This morning she was still doing the same with no new symptom. Review of Systems Review of Systems: No recent trauma, seizure, neck manipulation. No recent cold or flu-like illness PMFSH Past Medical History Medical History Fatty liver Hypertension Morbid obesity QUENTIN (obstructive sleep apnea) Family History Family History Other No family history of cerebrovascular accident (CVA) Surgical History Surgical History Previous section Social History Social History Alcohol intake: current Alcohol intake frequency: holidays/special occasions only Patient Tobacco Use Status: Former Tobacco user Smoked in Last 30 Days: No Use of substances other than those prescribed or required for medical reasons: No Substance Use Type: Marijuana Advance Directives: No Advance Directives Information Provided: No Meds Allergies Allergy/AdvReac Type Severity Reaction Status Date / Time No Known Allergies Allergy Unknown Verified 03/15/22 12:04 [No Known Allergies*] Active Medications: Current Medications Atorvastatin Calcium (Atorvastatin Calcium 80 Mg Tablet) 80 mg PO BEDTIME [facility] Last Admin: 04/05/22 20:45 Dose: 80 mg Enoxaparin Sodium (Enoxaparin Sodium 100 Mg/Ml Syringe) 100 mg SUBCUT Q12H [facility] Last Admin: 04/06/22 04:09 Dose: 100 mg Pharmacy Consult (Consult Rx Perform Med Rec) 1 each MISCELLANE ONCE PRN PRN Reason: Consult order Pharmacy Consult (Consult Rx Perform Med Rec) 1 each MISCELLANE ONCE PRN PRN Reason: Consult order Physical Exam Vital Signs: Vital Signs: Last Vital Signs Temp 97.6 F 04/05/22 20:39 Pulse 102 H 04/06/22 04:00 Resp 20 04/06/22 04:00 BP 174/79 H 04/06/22 04:00 Pulse Ox 98 04/06/22 04:00 O2 Del Method 04/06/22 04:00 BMI result Body Mass Index 49.1 Neuro: Other: She was alert and awake with normal spontaneity of speech fluency comprehension and affect. Face was symmetrical. Visual matthews are full. She was able to lift her right arm up against gravity but could not move her right hand or fingers of right hand at all. Hand was flaccid. Deep tendon reflexes were trace to 1+ with flexor plantars. Speech was normal. Results Labs CBC & Chem 7: 04/06/22 05:44 04/06/22 05:44 Labs: Short CBC 04/06/22 Range/Units 05:44 WBC 16.4 H (4.8-10.8) X10*3/uL Hgb 13.9 (12.0-16.0) g/dl Hct 40.7 (37.0-47.0) % Plt Count 256 (160-400) X10*3/uL BMP 04/06/22 05:44 Sodium 138 Potassium 4.2 Chloride 105 Carbon Dioxide 22 BUN 11 Creatinine 0.69 Calcium 9.4 MRI and MRA findings were reported in the initial part of the note. Assessment and Plan (1) Embolic cerebral infarction: Status: Acute (2) Ischemic cerebral stroke due to intracranial large artery atherosclerosis: Status: Acute 36 years old unfortunate woman with uncontrolled hypertension and morbid obesity who has severe right hand weakness from left intracranial internal carotid artery stenosis and related embolism. Her symptoms were nonspecific and started 2-3 weeks ago and initial impression was that because of her profession she might be suffering from carpal tunnel syndrome. With worsening of her symptom she came to emergency room and was ultimately diagnosed with a stroke. Unfortunately she was not a candidate for acute stroke intervention such as tPA or intra-arterial treatment. This was 1 of the rare presentation of a stroke presenting as only hand weakness. Her lipid profile was not that bad. Recommendations at this time are to put her on aspirin 81 mg daily and Plavix 75 mg daily and discontinue subQ heparin. Echocardiogram is recommended and consultation with PT OT for proper rehab of her right hand weakness. She was not following any primary care physician on regular basis at this time as she has lost a previous primary care physician. It would be better for her to start following them on a regular basis and take care of her blood pressure and sleep apnea and have appropriate treatment for obesity. As far as blood pressure is concerned, I would recommend continuing antihypertensives but avoid hypotension for next few days, avoid mean arterial pressure below 100. Procedures Date of Service Date of Service: 04/06/22
--- NOTE | 2022-04-06 10:09 | MHC.STROKE ---
Addendum entered by Marybel Ott RN 04/07/22 15:10: I ALSO GAVE HER BP GOALS AND CHOLESTEROL GOALS ON A WORKSHEET AND A CHART TO RTRACK HER BP'S. SHE DOES NOT HAVE A BP CUFF AT HOME AND WILL VNA OR PCP OFFICE WILL NEED TO MONITOR THIS. Addendum entered by Marybel Ott RN 04/07/22 14:54: I MET WITH THE PATIENT TODAY AND WE REVIEWED HER DIAGNOSIS, SHE WAS VERY TEARY AND STILL IN DISBELIEF. DR GUILLEN IS RECOMMENDING AND ANTIDEPRESSANT AND HYPERCOAG WORK-UP AN OUTPATIENT. I DID RELAY THIS TO THE PATIENT AND DR COATS. 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 HER SIGNIFICANT OTHER DOES NOT WORK AND WATCHES HER 3-YEAR OLD, AND TWO OTHER OLDER CHILDREN. SHE IS VERY OVERWHELMED REGARDING HER FINANCES, PAYING HER RENT AND THE ABILITY TO CARE FOR EVERYONE. SHE DOES NOT HAVE A PCP BUT I HAVE CONTACTED THE CASE MANAGEMENT TEAM AND THEY ARE GETTING HER A PCP AND A NURSE NAVIGATOR. SHE WANTS OP OT AND I HAVE ALSO CONTACT [facility] AND THEY WILL ATTEMPT TO GET HER AN OP APPOINTMENT SOON POSSIBLE. COLT FROM OT ALSO CAME DOWN AND GAVE THE PATIENT A SLING FOR THE RIGHT ARM. WE DISCUSSED HER RISK FACTORS, THE LOCATION OF HER STROKE, I GAVE HER A SCREENSHOT OF HER MRI. I EXPLAINED THAT IT COULD BE A SLOW COURSE BUT THAT THERAPY AND PARTNERING WITH HER PCP AND NAVIGATOR IS HER BEST OPTION. SHE EXPLAINED THAT HER PHARMACY IS [facility] NOT [facility] AND I DID TEXT DR COATS. HE WILL RESEND HER PRESCRIPTIONS TO [facility]. I EXPLAINED ALL HER MEDICATIONS AND WHY SHE SHOULD TAKE THEM. NOT TO TAKE ADDITIONAL MEDS LIKE MOTRIN, ADVIL, ONLY TYLENOL IF APPROVED BY HER PCP. SHE HAS HAD AN ONGOING LEDEZMA IN ADDITION TO THE RIGHT ARM PARALYSIS. I REVIEWED THE ENTIRE STROKE EDUCATION BOOKLET AND ANSWERED ALL OF HER QUESTIONS. I ALSO REINFORCED THE PLAN WITH HER SIGNIFICANT OTHER.SHE WILL REQUIRE A LOT OF SUPPORT BECAUSE SHE IS RIGHT HANDED AND SHE IS VERY DISCOURAGED. I ALSO NOTIFIED CASE MANAGEMENT TO ADDRESS HER FINANCIAL CONCERNS. Original Note: 04/05/22 WALK-IN AT 0256. UNABLE TO LIFT RIGHT ARM AND NUMBNESS, ONSET 04/04/22 AT 1900, NIHSS = 4. SHE HAD SIMILAR SYMPTOMS AND WAS HERE ON 03/15/22. PHM HTN, QUENTIN, OBESITY. 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 CT HEAD, MRI CONFIRMED LEFT FRONTAL/PARIETAL WATERSHED ISCHEMIC STROKE, CTA H/N CONFIRMED LEFT ICA STENOSIS/OCCLUSION. SHE IS OUT OF THE WINDOW FOR TPA-ALTEPLASE AND NOT A CANDIDATE FOR THROMBECTOMY SEE DR POE'S NOTE. AT 1305 VERIFIED THAT SHE PASSED NURSING SWALLOW SCREEN. CASED DISCUSSED WITH DR. GUILLEN, SEEN BY HIM THIS AM. DUAL ANTIPLATELET THERAPY RECOMMENDED AND BP CONTROL. SHE NEEDS CLOSE FOLLOW UP WITH A PCP. CASE MANAGEMENT CAN FOLLOW UP WITH THIS TO ASSIST HER. ALL STROKE MEASURES MET. STROKE EDUCATION INITIATED AND I WILL CONTINUE TO FOLLOW.
--- NOTE | 2022-04-06 10:48 | HO.PM.IMPN ---
Subjective Subjective Date of Service: 04/06/22 Interval History: cc: right hand weakness interval history:unchanged Respiratory Respiratory: Reports no additional respiratory complaints Gastrointestinal Gastrointestinal: Reports no additional gastrointestinal complaints Physical Exam Vital Signs: Vital Signs: Last Vital Signs Temp 97.6 F 04/05/22 20:39 Pulse 102 H 04/06/22 04:00 Resp 20 04/06/22 04:00 BP 174/79 H 04/06/22 04:00 Pulse Ox 98 04/06/22 04:00 O2 Del Method 04/06/22 04:00 BMI result Body Mass Index 49.1 General: AO X 3, no acute distress Resp: CTA bilateral, no accessory muscles used CVS: S1,S2,RRR GI: soft, non tender, non distended Neuro: right distal hand 0/5, flacid, alert Psych: appropriate affect, appropriate insight Objective Data Active Medications Aspirin (Aspirin 81 Mg Tab.Chew) 81 mg PO DAILY [facility] Atorvastatin Calcium (Atorvastatin Calcium 80 Mg Tablet) 80 mg PO BEDTIME IGNACIA Last Admin: 04/05/22 20:45 Dose: 80 mg Documented By: IGOR Clopidogrel Bisulfate (Clopidogrel Bisulfate 75 Mg Tablet) 75 mg PO DAILY [facility] Enoxaparin Sodium (Enoxaparin Sodium 100 Mg/Ml Syringe) 90 mg SUBCUT Q24H [facility] Pharmacy Consult (Consult Rx Perform Med Rec) 1 each MISCELLANE ONCE PRN PRN Reason: Consult order Pharmacy Consult (Consult Rx Perform Med Rec) 1 each MISCELLANE ONCE PRN PRN Reason: Consult order Valsartan (Valsartan 80 Mg Tablet) 80 mg PO DAILY [facility]; Protocol Labs CBC & Chem 7: 04/06/22 05:44 04/06/22 05:44 Labs: Laboratory Results - last 24 hr 04/05/22 04/05/22 04/05/22 07:56 07:56 15:30 MCV MCH MCHC RDW Plt Count MPV Absolute Nucleated RBC Nucleated RBC % (auto) Anion Gap Estim Creat Clear Calc Estimated GFR Fasting Glucose Estimat Average Glucose 114 Hemoglobin A1c % 5.6 Calcium Triglycerides 107 Cholesterol 173 LDL Cholesterol, Calc 113 HDL Cholesterol 39 COVID-19 (EFREN) Negative COVID-19 Clin Com See Note 04/06/22 04/06/22 05:44 05:44 MCV 84.1 MCH 28.7 MCHC 34.2 RDW 13.2 Plt Count 256 MPV 11.2 Absolute Nucleated RBC 0.000 Nucleated RBC % (auto) 0.0 Anion Gap 15 Estim Creat Clear Calc 133.6 Estimated GFR > 60 Fasting Glucose 137 H Estimat Average Glucose Hemoglobin A1c % Calcium 9.4 Triglycerides Cholesterol LDL Cholesterol, Calc HDL Cholesterol COVID-19 (EFREN) COVID-19 Clin Com Assessment and Plan (1) Ischemic cerebral stroke due to intracranial large artery atherosclerosis: Status: Acute Plan 36F with pmh of htn, morbid obesity, quentin presented with right upper extremity weakness, found to have acute cva. acute ischemic left parietal/frontal CVA neuro appreciated - continue high intensity statin, dc therapeutic lovenox, change to DAPL, check echo, monitor on tele, a1c 5.6 ldl 113 pt/ot eval no evidence of dysphagia QUENTIN does not tolerate cpap outpatient follow up HTN will restart valsartan morbid obesity, fatty liver, htn - metabolic syndrome weight loss recommended full code reason for continued hospitalization: acute cva ongoing elevated blood pressures, at risk for further strokes due to acuity, htn, obesity, quentin, Quality Stroke Does the patient have a stroke diagnosis?: Yes Reason for No Anti-thrombotic by Day Two: N/A - Med Ordered VTE Prior VTE?: No VTE Risk Level:: Medical - moderate - high VTE Device Contraindication: Treatment Not Indicated VTE Drug Contraindication: N/A - Med Ordered
--- NOTE | 2022-04-06 11:28 | MHC.CM.PN ---
Patient lives w/kids at home. No prior services or equipment, she drives and is employed; fully independent. She will call someone for her own ride home at D/C readiness. CM to follow.
[2022-04-06] MEDS: Clopidogrel Bisulfate 75 MG TABLET PO (11:30)
[2022-04-06] MEDS: Aspirin 81 MG TAB.CHEW PO (11:30)
[2022-04-06] MEDS: Valsartan 80 MG TABLET PO (11:50)
[2022-04-06] MEDS: Atorvastatin Calcium 80 MG TABLET PO (20:03)
[2022-04-07] VITALS: BP 148/90; PULSE 88; RESP 20; TEMP 36.3; O2SAT 97
[2022-04-07 03:25] VITALS: BP 165/91; PULSE 78; RESP 20; TEMP 36.6; O2SAT 96
[2022-04-07] MEDS: Enoxaparin Sodium 40 MG/0.4 ML SYRINGE SUBCUT (06:17)
--- NOTE | 2022-04-07 07:00 | CA_ITS ---
Transthoracic Echocardiogram Patient (Last, First, Middle): Karissa James, Gender: Female Date of : 1985 Age: 36 Procedure Date: 04/07/2022 Procedure Type: Transthoracic Echocardiogram Location: ER Height: 154.94 cm Weight: 117.94 kg BSA: 2.11 m2 Heart Rate: bpm BP: 165 / 81 mmHg Supervisor Capacitor Processing: TO Referring MD: Juliocesar Hull MD Symptoms: cva Study Quality: Technically Difficult/Contrast ECG Rhythm: Sinus Conclusions: - The left ventricular systolic function is normal. The visually estimated ejection fraction is between 60-65%. - No obvious valvular pathology seen on this study. Findings Procedure Information Contrast agent, definity, is being given per protocol without apparent complications. Left Ventricle Normal left ventricular cavity size. There is mildly increased left ventricular wall thickness. The left ventricular systolic function is normal. The visually estimated ejection fraction is between 60-65%. There is no evidence of regional wall motion abnormalities. Diastolic function is normal for age. Right Ventricle Normal right ventricular cavity size and systolic function. Atria Both atria are normal in size. Interatrial shunt cannot be excluded. Aortic Valve The aortic valve was not well visualized. The aortic valve structure and function is likely normal. There is no aortic valve stenosis. There is no aortic valve regurgitation. Mitral Valve The mitral valve appears normal. There is no mitral valve regurgitation. There is no mitral valve stenosis. Pulmonic Valve The pulmonic valve is likely normal. Tricuspid Valve Normal tricuspid valve structure. There is trace tricuspid valve regurgitation. The pulmonary artery systolic pressure is normal. Great Vessels The aortic annulus, sinuses of valsalva, and asc aorta are normal in size. Venous The inferior vena cava is normal in size and collapses less than 50% with inspiration. Pericardium/Pleural There is no evidence of pericardial effusion. Prior Study Comparison No prior study available for comparison. Recommendations, Care & Conclusions No obvious valvular pathology seen on this study. Recommend contrast study to evaluate intracardiac shunting. Measurements 2D Linear Measurements IVSd: 1.19 0.6-0.9/0.6-1.0 cm LVIDd: 4.19 3.9-5.3/4.2-5.9 cm LVIDd Index: 1.99 2.4-3.2/2.2-3.1 cm/m2 LVIDs: 3.05 2.0-3.6 cm LVPWd: 1.12 0.7-1.1 cm LA Diam: 3.10 2.7-3.8/3.0-4.0 cm LAIDs Index: 1.47 1.5-2.3 cm/m2 LV Mass: 209.11 67-162/88-224 g LV Mass Index: 99.10 43-95/49-115 g/m2 LVOT Diam: 2.00 3.0+(-)1.3 cm 2D Systolic Function EF 4C: 66.10 >55% EF 2C: 70.30 >55% EF BiP: 67.30 >55% Mitral Valve MV Pk E: 0.60 MV PK A: 0.78 MV Decel Time: 174.00 E/A: 0.80 E'Lateral: 8.70 E'Medial: 6.74 E/E' Med: 8.90 E/E' Lat: 6.90 PHT: 51.00 MVA PHT: 4.31 Decel Hardeman: 3.45 Aortic Valve AoV Pk Erick: 1.59 AoV Mn Erick: 1.09 AoV VTI: 0.27 AoV Pk Grad: 10.00 Aov Mn Grad: 5.00 DENISE Cont.VTI: 2.08 LVOT LVOT Pk Erick: 0.95 LVOT Mn Erick: 0.62 LVOT VTI: 0.18 LVOT Pk Grad: 4.00 LVOT Mn Grad: 2.00 LVOT Diam: 2.00 LVOT Area: 3.14 Diastolic Function MV Pk E: 0.60 MV Pk A: 0.78 E/A: 0.80 E'Medial: 6.74 E/E' Med: 8.90 E' Laterial: 8.70 E/E' Lat: 6.90 Right Ventricle TAPSE (mm): 29.00 TVS' Erick: 13.60 Tricuspid Valve TR Pk Erick: 1.63 TR Pk Grad: 11.00 RA Press: 8.00 RVSP: 19.00 Great Vessels Aorta Sinus of Valsalva: 2.70 2.0-3.[address] [place]: 2.36 1.7-3.4 cm Ao Asc: 2.80 2.1-3.4 cm Updated in Other Vendor System with Status of Final Robert Kapoor MD electronically signed on 04/07/2022 4:40:26 PM with status of Final
[2022-04-07 08:36] VITALS: BP 160/91; PULSE 90; RESP 18; TEMP 36.4; O2SAT 96
[2022-04-07] MEDS: Valsartan 80 MG TABLET PO (08:50)
[2022-04-07] MEDS: Aspirin 81 MG TAB.CHEW PO (08:50)
[2022-04-07] MEDS: Clopidogrel Bisulfate 75 MG TABLET PO (08:51)
--- NOTE | 2022-04-07 11:32 | PC.NURSE ---
Patient resting comfortably in bed. No complaints pain. PT/OT at bedside this morning. Patient assisted to commode x2. Patient has right arm weakness. Patient getting echo done now.
--- NOTE | 2022-04-07 12:07 | PM.DS ---
DS: Providers Provider Date of Service: 04/07/22 Date of admission: 04/05/22 16:12 Primary care physician: Unknown Physician Consults: 04/05/22 16:12 Consult to Neurology Routine Consulting Provider: [facility] Reason for consultation: cva Has provider been notified: Yes DS: Diagnosis Discharge Diagnosis (1) Ischemic cerebral stroke due to intracranial large artery atherosclerosis: Status: Acute DS: Summary Hospital Course Hospital Course: from initial hpi: Chief Complaint: Right hand weakness ?36-year-old female presented with right hand weakness.? Patient states that at 19:00 on day prior to presentation she experienced sudden onset of right handed weakness, inability to pressure here.? Associated with numbness and tingling along her right arm.? This was similar to presentation that she had on 03/15/2022 which had quickly resolved by time of presentation to the ED on that date and was diagnosis carpal tunnel.? On? current presentation symptoms did not resolve.? In ED she was noted to be significantly hypertensive with systolic blood pressures up to 200.? MRI showed acute watershed infarcts in the left parietal and frontal lobes and CTA showed left intracranial internal carotid stenosis.? Due to timing window and appearance of CVA on MRI patient was deemed not to be candidate for intervention. hospital course: Patient was admitted for acute ischemic CVA. She was seen by neurology recommended high-intensity statin, dual antiplatelet, echocardiogram ( report pending and should be followed up). A1c was 5.6, LDL 113, no evidence of dysphagia. She will follow up outpatient for OT. For her hypertension she is instructed to continue valsartan and will be started on amlodipine 5 mg daily. For her QUENTIN she should follow-up to find a mask that she can tolerate. For her metabolic syndrome with morbid obesity, fatty liver, hypertension weight loss is recommended. Time Spent with Patient Time attestation: Total time spent providing and/or coordinating discharge services: Discharge coordination time: Greater than 30 minutes Quality: Safe Use of Opioids Does Pt have an Active Cancer Diagnosis on the Problem List?: No Quality: Stroke Does the patient have a stroke diagnosis?: Yes Reason for No Anti-thrombotic at DC: N/A - Med Ordered Reason for No Anticoagulant at DC: Not indicated Reason Not Initiating IV-Tpa: Not indicated Reason for No Anti-thrombotic by Day Two: N/A - Med Ordered Reason for No Statin at DC: N/A - Med Ordered Physical Exam Vital Signs: Vital Signs: Last Vital Signs Temp 97.6 F 04/07/22 08:36 Pulse 90 04/07/22 08:36 Resp 18 04/07/22 08:36 BP 160/91 H 04/07/22 08:36 Pulse Ox 96 04/07/22 08:36 O2 Del Method 04/07/22 08:36 BMI result Body Mass Index 49.1 General: AO X 3, no acute distress Resp: CTA bilateral, no accessory muscles used CVS: S1,S2,RRR GI: soft, non tender, non distended Neuro: right distal hand 0/5, flacid, alert Psych: appropriate affect, appropriate insight Discharge Plan Discharge Patient Disposition: Home Health Service Discharge Diagnosis: cva Referrals: Danyelle Robison MD [Physician] - 1 Month Physician,Unknown J [Primary Care Provider] - 1 Week Discharge Medications: New atorvastatin 80 mg Tablet 80 mg PO BEDTIME Qty: 90 0RF clopidogrel 75 mg Tablet 75 mg PO DAILY Qty: 90 0RF aspirin 81 mg Tablet,Chewable 81 mg PO DAILY Qty: 90 0RF amlodipine 5 mg tablet 5 mg PO DAILY Qty: 30 0RF Continued valsartan 80 mg tablet 80 mg PO DAILY Qty: 30 1RF Discharge Orders: Discharge Order (Routine); Ordered 04/07/22 Ordered By: Juliocesar Hull Diet: Low salt diet Activity on Discharge: As tolerated Stand Alone Forms: Patient Portal Discharge page Care Plan Goals: recovery, prevent further strokes Health Concerns: cva Plan of Treatment: aspirin, plavix, statin, amldopine, valsartan, follow up echo report and neuro, OT, outpatient hypercoagulable work up Assessment: see above
--- NOTE | 2022-04-07 12:36 | MHC.CM.PN ---
CM MET WITH PT WHO WILL REQUIRE OT AT ME. SHE REPORTS SHE HAS NOT BEEN TO HER PCP IN ABOUT TWO YEARS SHE SAYS HER PCP RETIRED AND THEY DID ASSIGN HER A NEW ONE, BUT SHE HAS NOT YET SEEN THEM. SHE UNDERSTANDS THAT WITHOUT A PCP, HOME SERVICES THROUGH [facility] CANNOT BE ARRANGED SHE REPORTS SHE FEELS COMFORTABLE GOING TO OUTPATIENT THERAPIES SHE IS AWARE CM WILL ATTEMPT TO MAKE HER A NEW PT APPT, SHE SAYS SHE DOES NOT HAVE A PREFERENCE TO PROVIDERS, BUT [place] IS MOST CONVENIENT SHE DID EXPRESS CONCERNS REGARDING BEING OUT OF WORK. SHE SAYS SHE HAS SOME SICK TIME AND IS CURRENTLY ON VACATION. USING SICK TIME AND APPLYING FOR PFMLA WAS DISCUSSED PT WILL DC HOME WITH PLAN TO ATTEND OUTPATIENT OT WILL TRANSPORT
[2022-04-07 12:39] VITALS: BP 105/53; PULSE 95; RESP 18; TEMP 36.4; O2SAT 96
== END 2022-04-07 15:07 | disposition home health service (06) | DRG 45 ==
LOC: HO.ED 15:23 → HO.EDOVER 16:24
PROVIDERS: Admitting Provider Internal Medicine; Emergency Provider Emergency Medicine; PCP Internal Medicine; Visit Provider Internal Medicine
DX: I63.422 Cerebral infarction due to embolism of left anterior cerebral artery (principal); K76.0 Fatty (change of) liver, not elsewhere classified; E66.01 Morbid (severe) obesity due to excess calories; R53.1 Weakness; Z68.42 Body mass index [BMI] 45.0-49.9, adult; R29.704 NIHSS score 4; G47.33 Obstructive sleep apnea (adult) (pediatric); Z20.822 Contact with and (suspected) exposure to COVID-19; Z87.891 Personal history of nicotine dependence; Z79.899 Other long term (current) drug therapy
CPT/HCPCS: 36415; 70450; 70496; 70498; 70551; 71045; 80048; 80061; 80076; 83036; 83690; 84484; 85025; 85027; 87635; 93005; 93306; 96374; 97162; 97166; 97535; 99285; J1650; J2930; Q9957; Q9967

== ENCOUNTER 2022-06-18 10:57 | Outpatient (REF) | payer OTHER, SELFPAY ==
--- NOTE | ~2022-06-18 | XR_ITS ---
EXAMINATION: XR CHEST CLINICAL INFORMATION: Morbid severe obesity due to excess calories. COMPARISON: None TECHNIQUE: 2 views of the chest were obtained. FINDINGS: The lungs are well-expanded and clear of acute process. Heart size and pulmonary vascularity is normal. There is mild spondylosis dorsal spine. No aggressive lytic or sclerotic process. XR/XR chest 2V IMPRESSION: Unremarkable chest exam.
[2022-06-18 12:19] LABS: MANUAL DIFF FLAG NO
--- NOTE | 2022-06-18 12:27 | ECG_ITS ---
Test Reason : e66.01 Blood Pressure : / mmHG Vent. Rate : 091 BPM Atrial Rate : 091 BPM P-R Int : 126 ms QRS Dur : 072 ms QT Int : 370 ms P-R-T Axes : 065 -03 025 degrees QTc Int : 455 ms Normal sinus rhythm RSR' or QR pattern in V1 suggests right ventricular conduction delay Otherwise normal ECG When compared with ECG of 05-APR-2022 03:33, No significant change was found Referred By: Ashley Pennington Electronically Signed By:EFREN MCCARTY MD
[2022-06-18 13:11] LABS: Basophils Percent Auto 0.3 % (0-2); Eosinophils Absolute Auto 0.2 X10*3/uL (0.0-0.4); Eosinophils Percent Auto 2.6 % (0-4); Hematocrit 39.6 % (37.0-47.0); Hemoglobin 13.8 g/dl (12.0-16.0); Imm Gran Abs Auto 0.02 X10*3/uL (0.00-0.03); Imm Gran Pct Auto 0.3 % (0.0-0.4); Lymphocytes Absolute Auto 1.9 X10*3/uL (1.2-4.9); Lymphocytes Percent Auto 27.8 % (20-40); Mean Corpuscular HGB Conc 34.8 g/dl (31.0-35.0); Mean Corpuscular Hemoglobin 29.5 pg (27.0-33.0); Mean Corpuscular Volume 84.6 fL (80.0-98.0); Mean Platelet Volume 10.8 fL (9.4-12.3); Monocytes Absolute Auto 0.4 X10*3/uL (0.1-1.2); Monocytes Percent Auto 6.6 % (2-11); Neutrophils Absolute Auto 4.2 x10*3/uL (2.0-8.3); Neutrophils Percent Auto 62.4 % (45-73); Platelet Count 240 X10*3/uL (160-400); Red Blood Count 4.68 X10*6/uL (4.20-5.50); Red Cell Distribution Width 12.7 % (11.0-16.0); White Blood Count 6.7 X10*3/uL (4.8-10.8)
[2022-06-18 13:35] LABS: Alanine Aminotransferase 23 U/L (0-31); Albumin Level 4.5 g/dL (3.5-5.0); Alkaline Phosphatase 96 U/L (39-117); Anion Gap 16 (12-20); Aspartate Amino Transferase 15 U/L (5-31); Bilirubin Total 0.2 mg/dL (0.0-1.0); Blood Urea Nitrogen 10 mg/dL (9-16); C Reactive Protein 0.64 mg/dL (< or = 0.50); Calcium 9.2 mg/dL (8.4-10.2); Carbon Dioxide 22 mmol/L (22-29); Chloride 106 mmol/L (96-108); Cholesterol 110 mg/dL; Estimated Average Glucose 117 mg/dL; Estimated Glomerular Filt Rate > 60; Glucose Random 93 mg/dL (60-115); HDL Cholesterol 31 mg/dL; Hemoglobin A1c % 5.7 %; Iron 88 mcg/dL (30-160); LDL Cholesterol Calculated 62 mg/dl; Percent Iron Saturation 29 % (15-50); Potassium 4.1 mmol/L (3.3-5.1); Sodium 140 mmol/L (135-145); Total Iron Binding Capacity 305 mcg/dL (228-428); Total Protein 7.4 g/dL (6.5-8.0); Triglycerides 86 mg/dL; Unsaturated Iron Binding 217 ug/dL
[2022-06-18 14:10] LABS: Ferritin 126 ng/mL (10-122); TSH reflex Free T4 0.98 uIU/mL (0.32-4.0); Vitamin D 25-OH Total 9.1 ng/mL (>30)
[2022-06-18 14:22] LABS: Insulin 25 uU/mL (2-29)
[2022-06-18 14:43] LABS: Folate 7.6 ng/mL (> or = 4.0); Vitamin B12 256 pg/mL (200-900)
[2022-06-19 15:57] LABS: Calcium (PTHI) 9.2 mg/dL (8.6-10.2); PTHI 130 pg/mL (16-77)
[2022-06-20 11:02] LABS: H Pylori Breath Test Positive (Negative)
[2022-06-22 07:16] LABS: Vitamin B1 7 nmol/L (8-30)
[2022-06-22 13:21] LABS: Zinc 69 mcg/dL (60-130)
[2022-06-24 17:32] LABS: Vitamin A 59 mcg/dL (38-98)
== END 2022-06-18 10:58 | disposition home or self-care (01) ==
LOC: HO.LAB 10:57
PROVIDERS: PCP Internal Medicine; Visit Provider Physician Assistant
DX: E66.01 Morbid (severe) obesity due to excess calories (principal); I10 Essential (primary) hypertension; I63.59 Cerebral infarction due to unspecified occlusion or stenosis of other cerebral artery; G47.33 Obstructive sleep apnea (adult) (pediatric)
CPT/HCPCS: 36415; 71046; 80053; 80061; 82306; 82607; 82728; 82746; 83013; 83036; 83525; 83540; 83970; 84425; 84443; 84590; 84630; 85025; 86140; 93005; 99202; 99211

== ENCOUNTER 2022-07-03 10:00 | Outpatient (RCR) | payer OTHER, SELFPAY | END 2022-09-04 14:13 | disposition home or self-care (01) | LOC: HO.OT 10:00 | PROVIDERS: PCP Internal Medicine; Visit Provider Internal Medicine | DX: I63.9 Cerebral infarction, unspecified (principal) | CPT/HCPCS: 97110; 97165; 97530 ==

== ENCOUNTER → 2022-07-03 14:00 | Outpatient (BNVA) | payer OTHER, SELFPAY | PROVIDERS: PCP Internal Medicine; Visit Provider Counselor Mental Health | DX: F50.81 Binge eating disorder (principal); E66.01 Morbid (severe) obesity due to excess calories; I63.9 Cerebral infarction, unspecified | CPT/HCPCS: 90791 ==

== ENCOUNTER → 2022-07-09 08:26 | Outpatient (BNVA) | payer OTHER, SELFPAY | PROVIDERS: PCP Internal Medicine; Visit Provider Physician Assistant | DX: E66.01 Morbid (severe) obesity due to excess calories (principal); G47.33 Obstructive sleep apnea (adult) (pediatric); I63.59 Cerebral infarction due to unspecified occlusion or stenosis of other cerebral artery; Z68.42 Body mass index [BMI] 45.0-49.9, adult | CPT/HCPCS: 99212 ==

== ENCOUNTER → 2022-07-21 10:30 | Outpatient (BNVA) | payer OTHER, SELFPAY | PROVIDERS: PCP Internal Medicine; Visit Provider Dietitian, Registered | DX: E66.01 Morbid (severe) obesity due to excess calories (principal) | CPT/HCPCS: 97802 ==

== ENCOUNTER → 2022-07-22 09:03 | Outpatient (BNVA) | payer OTHER, SELFPAY | PROVIDERS: PCP Internal Medicine; Visit Provider Physician Assistant | DX: Z11.0 Encounter for screening for intestinal infectious diseases (principal) | CPT/HCPCS: 99211 ==

== ENCOUNTER 2022-07-22 17:23 | Outpatient (REF) | payer OTHER, SELFPAY ==
[2022-07-23 14:48] LABS: H Pylori Breath Test Negative (Negative)
== END 2022-07-22 17:24 | disposition home or self-care (01) ==
LOC: HO.LNP 17:23
PROVIDERS: Visit Provider Physician Assistant
DX: Z01.818 Encounter for other preprocedural examination (principal)
CPT/HCPCS: 83013

== ENCOUNTER → 2022-07-31 08:52 | Outpatient (BNVA) | payer OTHER, SELFPAY | PROVIDERS: PCP Internal Medicine; Visit Provider Physician Assistant | DX: E66.01 Morbid (severe) obesity due to excess calories (principal); I63.59 Cerebral infarction due to unspecified occlusion or stenosis of other cerebral artery; I10 Essential (primary) hypertension; Z68.42 Body mass index [BMI] 45.0-49.9, adult | CPT/HCPCS: 99212 ==

== ENCOUNTER → 2022-08-08 08:40 | Outpatient (BNVA) | payer OTHER, SELFPAY | PROVIDERS: PCP Internal Medicine; Visit Provider Surgery | DX: E66.01 Morbid (severe) obesity due to excess calories (principal); F50.81 Binge eating disorder; K76.0 Fatty (change of) liver, not elsewhere classified; I10 Essential (primary) hypertension; G47.33 Obstructive sleep apnea (adult) (pediatric); I63.40 Cerebral infarction due to embolism of unspecified cerebral artery; I63.59 Cerebral infarction due to unspecified occlusion or stenosis of other cerebral artery; Z68.42 Body mass index [BMI] 45.0-49.9, adult | CPT/HCPCS: 99202 ==

== ENCOUNTER 2022-08-17 19:28 | Inpatient (IN) | payer OTHER, SELFPAY ==
--- NOTE | ~2022-08-17 | MR_ITS ---
EXAMINATION: MRI OF THE BRAIN WITHOUT CONTRAST CLINICAL INFORMATION: TIA. COMPARISON: CTA of the head and neck 08/17/2022. MRI scan of the brain 04/05/2022. TECHNIQUE: MRI of the brain was obtained using routine sequences without contrast. FINDINGS: There are 2 punctate foci of restricted diffusion in the anterior and posterior left centrum semiovale, consistent with areas of acute infarction. There is no evidence of hemorrhagic transformation. There are areas of hyperintense T2 and FLAIR signal in the left frontal and parietal lobes, consistent with sequelae of chronic infarcts with some volume loss and gliosis in the left posterior parietal lobe. There are multiple small chronic infarcts in the left centrum semiovale more inferiorly. In addition to the signal changes described above, there are a few scattered areas of hyperintense T2 and FLAIR signal in the periventricular and subcortical white matter, which are nonspecific. No mass effect or midline shift is seen. The ventricles and sulci are normal in size. No extra-axial fluid collections are seen. The brainstem and cerebellum are normal. No pathologic magnetic susceptibility artifact is identified on the gradient refocused acquisition. The craniovertebral junction and midline structures are normal. Marrow signal is relatively homogenous. The major intracranial flow-voids at the level of the [place] of [place] are preserved. The dural venous sinus flow-voids are maintained. There is mild fluid in the right mastoid air cells. MR/MR head/brain wo con IMPRESSION: 1. There are 2 small foci of restricted diffusion in the anterior and posterior left centrum semiovale body consistent with areas of acute infarction in a watershed distribution. There is no evidence hemorrhage transformation. 2. The study demonstrates sequelae of the previously noted acute infarcts in the left frontal and parietal lobes. There is some volume loss and gliosis in the left parietal lobe. 3. There are no acute areas of hemorrhage. No masses are demonstrated.
--- NOTE | ~2022-08-17 | CT_ITS ---
EXAMINATION: CT ANGIOGRAM HEAD AND NECK CLINICAL INFORMATION: Right-sided facial numbness. History of stroke COMPARISON: CTA head and neck 04/05/2022 TECHNIQUE: Test bolus sequences followed by intravenous administration of 70 mL of Omnipaque 350 intravenous contrast. Helical imaging was performed in the axial plane from the mediastinum to the skull vertex. Delayed postcontrast imaging of the head was also performed. The data was processed at the radiographic technologist's workstation for generation of MIP sequences. Three-dimensional volume rendered reformatted images were also generated at an offline 3-D workstation. This CT examination was performed using dose optimization techniques as appropriate, variously including the following: *Automated exposure control *Adjustment of mA and/or kV according to patient size (this includes techniques or standardized protocols for targeted exams where dose is matched to indication/reason for exam; i.e. extremities or head) *Use of iterative reconstruction technique DLP: 2175 mGy-cm FINDINGS: HEAD: No intra or extra-axial fluid collection, hemorrhage, or mass. No midline shift or herniation. No ventriculomegaly. The basal cisterns are patent. Chavez-white matter differentiation is maintained. Small areas of encephalomalacia in the high left posterior frontal and parietal lobes and/or white matter consistent with prior spinal watershed infarcts. No cerebral volume loss. No calvarial fracture. Paranasal sinuses and mastoid air cells normally aerated. No abnormal intracranial enhancement. Major dural venous sinuses enhance normally. SOFT TISSUES AND LUNG APICES: Globes and retro-orbital structures intact. 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 Major salivary glands unremarkable. Normal thyroid gland. No mucosal space mass identified. No retropharyngeal fluid collection. No cervical lymphadenopathy identified. Visualized upper lungs appear clear. No acute fracture or suspicious osseous lesion. Mild to moderate degenerative disc disease at C3-C4, C4-C5 and C5-C6. Slight reversal of the normal cervical lordosis. NECK CTA: Normal three-vessel arch configuration. Arch origins patent. Bilateral vertebral arteries patent. Right-sided dominant. Bilateral common carotid arteries patent. Widely patent carotid bifurcations. Cervical segments of the internal carotid arteries patent. Mild tortuosity of the distal right cervical ICA just proximal to the skull base. CRANIAL CTA: Posterior circulation: The left vertebral artery effectively terminates in left PICA. The intradural segment is otherwise diminutive/hypoplastic. The intradural right vertebral artery is patent. There is a patent right PICA. The basilar artery is patent. Bilateral superior cerebellar arteries are patent. Bilateral posterior cerebral arteries are patent. Patent right posterior communicating artery. Left posterior communicating artery is not definitively seen. No aneurysm or stenosis. Anterior circulation: There is a focal high-grade narrowing/stenosis of the left internal carotid artery at the junction of the cavernous and supraclinoid segments, unchanged. Petrous segments patent. The right petrous and cavernous ICA segments are patent. Anterior cerebral arteries are patent. The anterior communicating artery is not definitely seen. No aneurysm or stenosis. Bilateral MCAs are patent. No stenosis. The small 2 mm outpouching projecting posteromedially from the left supraclinoid ICA that may represent an infundibulum or small aneurysm, unchanged. CT/CT angio head neck stroke IMPRESSION: 1. No intracranial hemorrhage or acute edematous territorial infarct. If concern for no small infarct, suggest MRI for more sensitive assessment. 2. Small areas of encephalomalacia in the high left posterior frontal and parietal lobes consistent with prior watershed infarcts. 3. Focal high-grade stenosis of the left internal carotid artery at the junction of the cavernous and supraclinoid segments, unchanged. 4. No other intracranial arterial stenosis or occlusion. 5. Patent cervical carotid and vertebral arteries. 6. Unchanged 2 mm outpouching from the left supraclinoid ICA that may represent an infundibulum or small aneurysm.
--- NOTE | 2022-08-17 19:36 | ED.GENADULT ---
HPI - General Adult General Chief complaint: Stroke <ISABELA Zhou - Last Filed: 08/22/22 08:11> Stated complaint: states right side of face went numb <ISABELA Zhou - Last Filed: 08/22/22 08:11> Time Seen by Provider: 08/17/22 20:00 <ISABELA Zhou - Last Filed: 08/22/22 08:11> Source: patient <ISABELA Zhou Last Filed: 08/22/22 08:11> Mode of arrival: ambulatory <ISABELA Zhou - Last Filed: 08/22/22 08:11> Limitations: no limitations <ISABELA Zhou Last Filed: 08/22/22 08:11> History of Present Illness HPI narrative: 36 yo female with history of stroke in March 2022, QUENTIN, obesity, uncontrolled HTN, who presents to the ER for evaluation of transient right sided facial numbness that occurred 2 times today and have since resolved. She also reports having a few episodes of transient right-sided facial numbness that occurred a few times this week that also self resolved. She did not think much of it. Today the numbness happened 2 times, once this morning around 10:00 lasted 2 or 3 minutes and self-resolved. Last episode was around 18:00, also lasted around 2 or 3 minutes and self-resolved. She states 1 time this week there was an episode of right lower extremity numbness and she felt like her knee was going to give out. This lasted a few moments and then also went away on its own. She states she has been compliant with her losartan and amlodipine for her blood pressure and her blood pressure readings have been normal when she goes to the doctor. She states her right hand has regained most of the strength from her previous stroke. She states she just saw Dr. Larios last month and was recently taken off of Plavix. <ISABELA Red - Last Filed: 08/17/22 22:49> MD complaint: Right-sided facial numbness <ISABELA Red - Last Filed: 08/17/22 22:49> Onset (ago): day(s) <ISABELA Red Last Filed: 08/17/22 22:49> Location: face <ISABELA Red Last Filed: 08/17/22 22:49> Radiation: non-radiation <ISABELA Red - Last Filed: 08/17/22 22:49> Severity: moderate <ISABELA Red - Last Filed: 08/17/22 22:49> Pain Consistency: now resolved <ISABELA Red Last Filed: 08/17/22 22:49> Relieving factors: none <ISABELA Red - Last Filed: 08/17/22 22:49> Exacerbating factors: none <ISABELA Red - Last Filed: 08/17/22 22:49> Associated symptoms: denies other symptoms <ISABELA Red - Last Filed: 08/17/22 22:49> Treatments prior to arrival: none <ISABELA Red Last Filed: 08/17/22 22:49> Related Data Home medications: Previous Rx's Medication Instructions Recorded valsartan 80 mg tablet 80 mg PO DAILY #30 tabs 03/15/22 amlodipine 5 mg tablet 5 mg PO DAILY #30 tabs 04/07/22 aspirin 81 mg chewable tablet 81 mg PO DAILY #90 tabs 04/07/22 atorvastatin 80 mg tablet 80 mg PO BEDTIME #90 tabs 04/07/22 cholecalciferol (vitamin D3) 50 50 mcg PO DAILY #30 caps 06/19/22 mcg (2,000 unit) capsule cyanocobalamin (vitamin B-12) 1,000 mcg PO DAILY #30 tabs 06/19/22 1,000 mcg tablet thiamine HCl (vitamin B1) 50 mg 50 mg PO DAILY #30 tabs 06/23/22 tablet clopidogrel 75 mg tablet 1 tab PO DAILY #30 tabs 08/19/22 <ISABELA Zhou - Last Filed: 08/22/22 08:11> Allergies/adverse reactions: Allergies Allergy/AdvReac Type Severity Reaction Status Date / Time No Known Allergies Allergy Unknown Verified 08/08/22 08:48 [No Known Allergies*] <ISABELA Zhou - Last Filed: 08/22/22 08:11> Review of Systems Review of Systems: Yes all other systems are reviewed and are negative <ISABELA Red - Last Filed: 08/17/22 22:49> [facility] Past Medical History Medical History: Medical History Fatty liver Hypertension Morbid obesity QUENTIN (obstructive sleep apnea) <ISABELA Zhou - Last Filed: 08/22/22 08:11> Surgical History: Surgical History Previous section <ISABELA Zhou - Last Filed: 08/22/22 08:11> Family History Family History: Family History Mother Sleep apnea Diabetes Father Diabetes Dementia Brother No problems noted. Brother No problems noted. Brother No problems noted. Brother No problems noted. Brother No problems noted. Brother No problems noted. Sister Obesity Sister No problems noted. Son No problems noted. Son No problems noted. Daughter No problems noted. Other No family history of cerebrovascular accident (CVA) <ISABELA Zhou - Last Filed: 08/22/22 08:11> Social History Social History: Social History Alcohol intake: former Patient Tobacco Use Status: Former Tobacco user Quit Date: 5 YRS AGO Substance Use Type: Marijuana service: No Current occupational status: employed <ISABELA Zhou - Last Filed: 08/22/22 08:11> Physical Exam ED Vital Signs: Vital Signs - 24 hr 08/17/22 19:38 08/17/22 20:33 Temperature 98.0 F Pulse Rate 124 H 98 Respiratory Rate 18 19 Blood Pressure 196/108 H 174/100 H Pulse Oximetry 98 99 Oxygen Delivery Method Room Air Room Air BMI result Body Mass Index 44.7 <ISABELA Zhou - Last Filed: 08/22/22 08:11> Vital Signs - 24 hr 08/17/22 19:38 08/17/22 20:33 Temperature 98.0 F Pulse Rate 124 H 98 Respiratory Rate 18 19 Blood Pressure 196/108 H 174/100 H Pulse Oximetry 98 99 Oxygen Delivery Method Room Air Room Air BMI result Body Mass Index 44.7 <ISABELA Red - Last Filed: 08/17/22 22:49> Appearance: Alert. Oriented X3. No acute distress. Eyes: Pupils equal, round and reactive to light. ENT: Pharynx normal. Neck: Normal inspection. Neck supple. CVS: Normal heart rate and rhythm. Pulses normal. Respiratory: No respiratory distress. Breath sounds normal. Abdomen: Obese, Soft and nontender. +BS x4 Skin: Skin warm and dry. Normal skin color. Normal skin turgor. No rashes. Extremities: No lower extremity edema. Neuro: Oriented X 3. 4/5 strength of right hand grasp, slight weakness in adduction of the digits compared to the left. Strength is otherwise euqal and symmetrical throughout. No sensory deficit. Normal speech and cognition. CN II-XII intact. 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 On examination she has no symptoms, no sensory deficit but she does have some residual right hand weakness. She is right-hand dominant. CTA is pending, under stroke protocol. <ISABELA Red - Last Filed: 08/17/22 22:49> Reevaluation(s) Reevaluation #1: CTA unchanged. Blood pressure improved from 190 systolic to 170 systolic without treatment. Heart rate improved 120 sent 90s as well. Case was discussed with neurologist Dr. Larios was recommending re-initiation of her Plavix. This has been ordered. Will admit for TIA and further workup. <ISABELA Red - Last Filed: 08/17/22 22:49> Medications Administered Discontinued Medications Generic Name Dose Route Start Last Admin Trade Name Freq PRN Reason Stop Dose Admin Aspirin 81 mg 08/18/22 09:00 08/19/22 07:51 Aspirin 81 Mg Tab.Chew PO 81 mg DAILY IGNACIA Administration Atorvastatin Calcium 80 mg 08/18/22 21:00 08/18/22 20:26 Atorvastatin Calcium 80 Mg Tablet PO 80 mg BEDTIME IGNACIA Administration Clopidogrel Bisulfate 75 mg 08/18/22 09:00 08/19/22 07:50 Clopidogrel Bisulfate 75 Mg Tablet PO 75 mg DAILY IGNACIA Administration Clopidogrel Bisulfate 75 mg 08/19/22 16:45 08/19/22 17:11 Clopidogrel Bisulfate 75 Mg Tablet PO 75 mg DAILY IGNACIA Administration Cyanocobalamin 1,000 mcg 08/18/22 09:00 08/19/22 07:50 Cyanocobalamin (Vitamin B-12) 1,000 Mcg Tablet PO 1,000 mcg DAILY IGNACIA Administration Iohexol 100 ml 08/17/22 20:14 08/17/22 20:14 Iohexol 350 Mg/Ml 100 Ml Infus..Btl IV 08/17/22 20:15 70 ml ONCE ONE Administration Thiamine HCl 50 mg 08/18/22 09:00 08/19/22 07:50 Thiamine Hcl 100 Mg Tablet PO 50 mg DAILY IGNACIA Administration Vitamin D 50 mcg 08/18/22 09:00 08/19/22 07:50 Cholecalciferol (Vitamin D3) 25 Mcg Tablet PO 50 mcg DAILY IGNACIA Administration <ISABELA Zhou - Last Filed: 08/22/22 08:11> Medications Administered Discontinued Medications Generic Name Dose Route Start Last Admin Trade Name Freq PRN Reason Stop Dose Admin Aspirin 81 mg 08/18/22 09:00 08/19/22 07:51 Aspirin 81 Mg Tab.Chew PO 81 mg DAILY IGNACIA Administration Atorvastatin Calcium 80 mg 08/18/22 21:00 08/18/22 20:26 Atorvastatin Calcium 80 Mg Tablet PO 80 mg BEDTIME IGNACIA Administration Clopidogrel Bisulfate 75 mg 08/18/22 09:00 08/19/22 07:50 Clopidogrel Bisulfate 75 Mg Tablet PO 75 mg DAILY IGNACIA Administration Clopidogrel Bisulfate 75 mg 08/19/22 16:45 08/19/22 17:11 Clopidogrel Bisulfate 75 Mg Tablet PO 75 mg DAILY IGNACIA Administration Cyanocobalamin 1,000 mcg 08/18/22 09:00 08/19/22 07:50 Cyanocobalamin (Vitamin B-12) 1,000 Mcg Tablet PO 1,000 mcg DAILY IGNACIA Administration Iohexol 100 ml 08/17/22 20:14 08/17/22 20:14 Iohexol 350 Mg/Ml 100 Ml Infus..Btl IV 08/17/22 20:15 70 ml ONCE ONE Administration Thiamine HCl 50 mg 08/18/22 09:00 08/19/22 07:50 Thiamine Hcl 100 Mg Tablet PO 50 mg DAILY IGNACIA Administration Vitamin D 50 mcg 08/18/22 09:00 08/19/22 07:50 Cholecalciferol (Vitamin D3) 25 Mcg Tablet PO 50 mcg DAILY IGNACIA Administration <ISABELA Red - Last Filed: 08/17/22 22:49> Medical Decision Making Differential Diagnosis Differential Diagnoses: The differential diagnosis associated with the presentation includes <ISABELA Red - Last Filed: 08/17/22 22:49> Stroke, TIA, ICH, metabolic derangement, hypertensive emergency, cranial nerve pathology <ISABELA Red - Last Filed: 08/17/22 22:49> Admission/Observation Consideration of admission/observation: Escalation of care including admission/observation considered <ISABELA Red - Last Filed: 08/17/22 22:49> Admit for TIA <ISABELA Red - Last Filed: 08/17/22 22:49> Consult Healthcare Provider Management of the patient was discussed with: Hospitalist and Hvac Service Technician <ISABELA Red - Last Filed: 08/17/22 22:49> Dr. Cesar hospitalist will admit Dr. Larios from neuro rec adding back plavix <ISABELA Red - Last Filed: 08/17/22 22:49> Lab Data MDM Lab Attestation statement: I reviewed the patient's lab results. <ISABELA Red - Last Filed: 08/17/22 22:49> Result Diagrams: 08/18/22 06:39 08/18/22 06:39 <ISABELA Zhou - Last Filed: 08/22/22 08:11> Labs: Lab Results 08/17/22 08/17/22 08/17/22 Range/Units 20:15 20:15 20:15 WBC 5.5 (4.8-10.8) X10*3/uL RBC 4.47 (4.20-5.50) X10*6/uL Hgb 12.8 (12.0-16.0) g/dl Hct 37.3 (37.0-47.0) % MCV 83.4 (80.0-98.0) fL MCH 28.6 (27.0-33.0) pg MCHC 34.3 (31.0-35.0) g/dl RDW 12.5 (11.0-16.0) % Plt Count 219 (160-400) X10*3/uL MPV 10.9 (9.4-12.3) fL Immature Gran % (Auto) 0.2 (0.0-0.4) % Neut % (Auto) 51.0 (45-73) % Lymph % (Auto) 37.6 (20-40) % [place] % (Auto) 7.5 (2-11) % Eos % (Auto) 3.3 (0-4) % Baso % (Auto) 0.4 (0-2) % Lymph # (Auto) 2.1 (1.2-4.9) X10*3/uL [place] # (Auto) 0.4 (0.1-1.2) X10*3/uL Eos # (Auto) 0.2 (0.0-0.4) X10*3/uL Baso # (Auto) 0.0 (0.0-0.2) X10*3/uL Abs Immat Gran (auto) 0.01 (0.00-0.03) X10*3/uL Absolute Neuts (auto) 2.8 (2.0-8.3) x10*3/uL Absolute Nucleated RBC 0.000 (0.0-0.012) X10*3/uL Nucleated RBC % (auto) 0.0 (0.0-0.2) /100WBC PT 11.4 (10.0-13.1) SEC INR 1.0 (0.9-1.1) APTT 29.1 (26.0-36.4) SEC Sodium 138 (135-145) mmol/L Potassium 3.5 (3.3-5.1) mmol/L Chloride 106 (96-108) mmol/L Carbon Dioxide 25 (22-29) mmol/L Anion Gap 11 L (12-20) BUN 14 (9-16) mg/dL Creatinine 0.79 (0.5-1.4) mg/dL Estim Creat Clear Calc 110.3 Estimated GFR > 60 POC Glucose (60-115) mg/dL Random Glucose 146 H (60-115) mg/dL Calcium 9.1 (8.4-10.2) mg/dL Total Bilirubin 0.3 (0.0-1.0) mg/dL AST 15 (5-31) U/L ALT 25 (0-31) U/L Alkaline Phosphatase 76 (39-117) U/L Total Protein 7.1 (6.5-8.0) g/dL Albumin 4.3 (3.5-5.0) g/dL COVID-19 (EFREN) (Negative) COVID-19 Clin Com 08/17/22 08/17/22 Range/Units 20:32 21:11 WBC (4.8-10.8) X10*3/uL RBC (4.20-5.50) X10*6/uL Hgb (12.0-16.0) g/dl Hct (37.0-47.0) % MCV (80.0-98.0) fL MCH (27.0-33.0) pg MCHC (31.0-35.0) g/dl RDW (11.0-16.0) % Plt Count (160-400) X10*3/uL MPV (9.4-12.3) fL Immature Gran % (Auto) (0.0-0.4) % Neut % (Auto) (45-73) % Lymph % (Auto) (20-40) % [place] % (Auto) (2-11) % Eos % (Auto) (0-4) % Baso % (Auto) (0-2) % Lymph # (Auto) (1.2-4.9) X10*3/uL [place] # (Auto) (0.1-1.2) X10*3/uL Eos # (Auto) (0.0-0.4) X10*3/uL Baso # (Auto) (0.0-0.2) X10*3/uL Abs Immat Gran (auto) (0.00-0.03) X10*3/uL Absolute Neuts (auto) (2.0-8.3) x10*3/uL Absolute Nucleated RBC (0.0-0.012) X10*3/uL Nucleated RBC % (auto) (0.0-0.2) /100WBC PT (10.0-13.1) SEC INR (0.9-1.1) APTT (26.0-36.4) SEC Sodium (135-145) mmol/L Potassium (3.3-5.1) mmol/L Chloride (96-108) mmol/L Carbon Dioxide (22-29) mmol/L Anion Gap (12-20) BUN (9-16) mg/dL Creatinine (0.5-1.4) mg/dL Estim Creat Clear Calc Estimated GFR POC Glucose 137 H (60-115) mg/dL Random Glucose (60-115) mg/dL Calcium (8.4-10.2) mg/dL Total Bilirubin (0.0-1.0) mg/dL AST (5-31) U/L ALT (0-31) U/L Alkaline Phosphatase (39-117) U/L Total Protein (6.5-8.0) g/dL Albumin (3.5-5.0) g/dL COVID-19 (EFREN) Negative (Negative) COVID-19 Clin Com See Note <ISABELA Zhou - Last Filed: 08/22/22 08:11> Lab Results 08/17/22 08/17/22 08/17/22 Range/Units 20:15 20:15 20:15 WBC 5.5 (4.8-10.8) X10*3/uL RBC 4.47 (4.20-5.50) X10*6/uL Hgb 12.8 (12.0-16.0) g/dl Hct 37.3 (37.0-47.0) % MCV 83.4 (80.0-98.0) fL MCH 28.6 (27.0-33.0) pg MCHC 34.3 (31.0-35.0) g/dl RDW 12.5 (11.0-16.0) % Plt Count 219 (160-400) X10*3/uL MPV 10.9 (9.4-12.3) fL Immature Gran % (Auto) 0.2 (0.0-0.4) % Neut % (Auto) 51.0 (45-73) % Lymph % (Auto) 37.6 (20-40) % [place] % (Auto) 7.5 (2-11) % Eos % (Auto) 3.3 (0-4) % Baso % (Auto) 0.4 (0-2) % Lymph # (Auto) 2.1 (1.2-4.9) X10*3/uL [place] # (Auto) 0.4 (0.1-1.2) X10*3/uL Eos # (Auto) 0.2 (0.0-0.4) X10*3/uL Baso # (Auto) 0.0 (0.0-0.2) X10*3/uL Abs Immat Gran (auto) 0.01 (0.00-0.03) X10*3/uL Absolute Neuts (auto) 2.8 (2.0-8.3) x10*3/uL Absolute Nucleated RBC 0.000 (0.0-0.012) X10*3/uL Nucleated RBC % (auto) 0.0 (0.0-0.2) /100WBC PT 11.4 (10.0-13.1) SEC INR 1.0 (0.9-1.1) APTT 29.1 (26.0-36.4) SEC Sodium 138 (135-145) mmol/L Potassium 3.5 (3.3-5.1) mmol/L Chloride 106 (96-108) mmol/L Carbon Dioxide 25 (22-29) mmol/L Anion Gap 11 L (12-20) BUN 14 (9-16) mg/dL Creatinine 0.79 (0.5-1.4) mg/dL Estim Creat Clear Calc 110.3 Estimated GFR > 60 POC Glucose (60-115) mg/dL Random Glucose 146 H (60-115) mg/dL Calcium 9.1 (8.4-10.2) mg/dL Total Bilirubin 0.3 (0.0-1.0) mg/dL AST 15 (5-31) U/L ALT 25 (0-31) U/L Alkaline Phosphatase 76 (39-117) U/L Total Protein 7.1 (6.5-8.0) g/dL Albumin 4.3 (3.5-5.0) g/dL COVID-19 (EFREN) (Negative) COVID-19 Clin Com 08/17/22 08/17/22 Range/Units 20:32 21:11 WBC (4.8-10.8) X10*3/uL RBC (4.20-5.50) X10*6/uL Hgb (12.0-16.0) g/dl Hct (37.0-47.0) % MCV (80.0-98.0) fL MCH (27.0-33.0) pg MCHC (31.0-35.0) g/dl RDW (11.0-16.0) % Plt Count (160-400) X10*3/uL MPV (9.4-12.3) fL Immature Gran % (Auto) (0.0-0.4) % Neut % (Auto) (45-73) % Lymph % (Auto) (20-40) % [place] % (Auto) (2-11) % Eos % (Auto) (0-4) % Baso % (Auto) (0-2) % Lymph # (Auto) (1.2-4.9) X10*3/uL [place] # (Auto) (0.1-1.2) X10*3/uL Eos # (Auto) (0.0-0.4) X10*3/uL Baso # (Auto) (0.0-0.2) X10*3/uL Abs Immat Gran (auto) (0.00-0.03) X10*3/uL Absolute Neuts (auto) (2.0-8.3) x10*3/uL Absolute Nucleated RBC (0.0-0.012) X10*3/uL Nucleated RBC % (auto) (0.0-0.2) /100WBC PT (10.0-13.1) SEC INR (0.9-1.1) APTT (26.0-36.4) SEC Sodium (135-145) mmol/L Potassium (3.3-5.1) mmol/L Chloride (96-108) mmol/L Carbon Dioxide (22-29) mmol/L Anion Gap (12-20) BUN (9-16) mg/dL Creatinine (0.5-1.4) mg/dL Estim Creat Clear Calc Estimated GFR POC Glucose 137 H (60-115) mg/dL Random Glucose (60-115) mg/dL Calcium (8.4-10.2) mg/dL Total Bilirubin (0.0-1.0) mg/dL AST (5-31) U/L ALT (0-31) U/L Alkaline Phosphatase (39-117) U/L Total Protein (6.5-8.0) g/dL Albumin (3.5-5.0) g/dL COVID-19 (EFREN) Negative (Negative) COVID-19 Clin Com See Note <ISABELA Red - Last Filed: 08/17/22 22:49> Independent Interpretation I performed an independent interpretation of an: EKG <ISABELA Red Last Filed: 08/17/22 22:49> Radiology Impression Discussion of test interpretation with radiology: I discussed test interpretation with the radiologist and I have reviewed the radiologist's reading. <ISABELA Red - Last Filed: 08/17/22 22:49> Radiologist Impression: CTA unchanged from prior 1.? No intracranial hemorrhage or acute edematous territorial infarct. If concern for no small infarct, suggest MRI for more sensitive assessment. 2.? Small areas of encephalomalacia in the high left posterior frontal and parietal lobes consistent with prior watershed infarcts. 3.? Focal high-grade stenosis of the left internal carotid artery at the junction of the cavernous and supraclinoid segments, unchanged. 4.? No other intracranial arterial stenosis or occlusion. 5.? Patent cervical carotid and vertebral arteries. 6.? Unchanged 2 mm outpouching from the left supraclinoid ICA that may represent an infundibulum or small aneurysm. <ISABELA Red - Last Filed: 08/17/22 22:49> External Record Review External record reviewed: Inpatient record, Office record, Outpatient record, Prior outpatient labs and Prior outpatient radiology <ISABELA Red Last Filed: 08/17/22 22:49> Chronic Conditions Patient?s care impacted by: Hypertension <ISABELA Red Last Filed: 08/17/22 22:49> Critical Care Time Critical Care Time Critical Care Time: Yes <ISABELA Red Last Filed: 08/17/22 22:49> Total Critical Care Time: 42 <ISABELA Red Last Filed: 08/17/22 22:49> Attestation: I have personally provided critical care time exclusive of time spent on separately billable procedures. Time includes review of lab data, radiology results, discussion with consultants, and monitoring for potential decompensation. Intervention performed as documented. <ISABELA Red - Last Filed: 08/17/22 22:49> Discharge Plan Discharge Clinical Impression: Transient ischemic attack (TIA), Hypertensive urgency <ISABELA Zhou - Last Filed: 08/22/22 08:11> Patient Disposition: Home, Self-Care <ISABELA Zhou - Last Filed: 08/22/22 08:11> Interventions: ED Discharge Assessment Last Done: 08/19/22 17:26 <ISABELA Zhou - Last Filed: 08/22/22 08:11> Discharge Date/Time: 08/19/22 17:26 <ISABELA Zhou - Last Filed: 08/22/22 08:11>
[2022-08-17 19:38] VITALS: BP 196/108; PULSE 124; RESP 18; TEMP 36.7; O2SAT 98; BMI 44.7
[2022-08-17] MEDS: iohexoL 350 MG/ML 100 ML INFUS..BTL IV (20:14)
[2022-08-17 20:21] LABS: MANUAL DIFF FLAG NO
[2022-08-17 20:22] LABS: Basophils Percent Auto 0.4 % (0-2); Eosinophils Absolute Auto 0.2 X10*3/uL (0.0-0.4); Eosinophils Percent Auto 3.3 % (0-4); Hematocrit 37.3 % (37.0-47.0); Hemoglobin 12.8 g/dl (12.0-16.0); Imm Gran Abs Auto 0.01 X10*3/uL (0.00-0.03); Imm Gran Pct Auto 0.2 % (0.0-0.4); Lymphocytes Absolute Auto 2.1 X10*3/uL (1.2-4.9); Lymphocytes Percent Auto 37.6 % (20-40); Mean Corpuscular HGB Conc 34.3 g/dl (31.0-35.0); Mean Corpuscular Hemoglobin 28.6 pg (27.0-33.0); Mean Corpuscular Volume 83.4 fL (80.0-98.0); Mean Platelet Volume 10.9 fL (9.4-12.3); Monocytes Absolute Auto 0.4 X10*3/uL (0.1-1.2); Monocytes Percent Auto 7.5 % (2-11); Neutrophils Absolute Auto 2.8 x10*3/uL (2.0-8.3); Platelet Count 219 X10*3/uL (160-400); Red Blood Count 4.47 X10*6/uL (4.20-5.50); Red Cell Distribution Width 12.5 % (11.0-16.0); White Blood Count 5.5 X10*3/uL (4.8-10.8)
--- NOTE | 2022-08-17 20:25 | PC.NURSE ---
pt a&ox3, hypertensive, other vss, pt to CT, 20G IV left ac and right ac, labs drawn, provider at bedside. per pt right sided facial numbness, now resolved, two ep today, first starting at 1000, second at 1830, both lasting around 2-3 min, hx CVA w some loss of strength on right side.
[2022-08-17 20:29] LABS: Prothrombin Time 11.4 SEC (10.0-13.1)
[2022-08-17 20:32] LABS: Partial Thromboplastin Time 29.1 SEC (26.0-36.4)
[2022-08-17 20:33] VITALS: BP 174/100; PULSE 98; RESP 19; O2SAT 99
[2022-08-17 20:35] LABS: Alanine Aminotransferase 25 U/L (0-31); Albumin Level 4.3 g/dL (3.5-5.0); Alkaline Phosphatase 76 U/L (39-117); Anion Gap 11 (12-20); Aspartate Amino Transferase 15 U/L (5-31); Bilirubin Total 0.3 mg/dL (0.0-1.0); Blood Urea Nitrogen 14 mg/dL (9-16); Calcium 9.1 mg/dL (8.4-10.2); Carbon Dioxide 25 mmol/L (22-29); Chloride 106 mmol/L (96-108); Creatinine Clr Calc Pharmacy 110.3; Estimated Glomerular Filt Rate > 60; Glucose Random 146 mg/dL (60-115); Potassium 3.5 mmol/L (3.3-5.1); Sodium 138 mmol/L (135-145); Total Protein 7.1 g/dL (6.5-8.0)
[2022-08-17 20:36] LABS: Glucose, Whole Blood 137 mg/dL (60-115)
--- NOTE | 2022-08-17 21:18 | ECG_ITS ---
Test Reason : STROKE Blood Pressure : / mmHG Vent. Rate : 120 BPM Atrial Rate : 120 BPM P-R Int : 126 ms QRS Dur : 074 ms QT Int : 326 ms P-R-T Axes : 060 007 024 degrees QTc Int : 460 ms Sinus tachycardia Possible Inferior infarct (cited on or before 17-AUG-2022) Abnormal ECG When compared with ECG of 18-JUN-2022 12:27, No significant change was found Referred By: Ching Keane Electronically Signed By:ABDIEL BARKSDALE MD
--- NOTE | 2022-08-17 21:33 | PC.NURSE ---
Med req completed
[2022-08-17 22:08] LABS: COVID-19 Test Negative (Negative); IDNOW Serial# 6674DD1D
[2022-08-17 22:40] VITALS: BP 152/91; PULSE 84; RESP 20; O2SAT 96
--- NOTE | 2022-08-17 23:27 | PC.NURSE ---
Pt aox4, resting comfortably at the bedside. Breaths are even and unlabored. NSR on monitor with HR 82. Pt reports no pain at this time. No apparent distress noted. Nursing swallow screen performed and passed. Pt is able to swallow water with no difficulty. Pt is admitted and waiting for a room. Pt aware of plan of care.
[2022-08-18] VITALS (7 sets, daily range): BP systolic 109–146; BP diastolic 54–80; PULSE 70–80; RESP 12–20; TEMP 36.1–36.7; O2SAT 95–100
--- NOTE | 2022-08-18 00:08 | PM.IMHP ---
History of Present Illness Date of Service: 08/18/22 Chief Complaint: facial drooping 37-year-old female with past medical history of CVA, hypertension, QUENTIN does not tolerate CPAP, presents the hospital with complaints of right facial drooping, x2 today, as well as 1 episode of right-sided lower extremity weakness that occurred several days prior. Patient reports no headache, no change in vision, denies any slurred speech. Symptoms resolved Within minutes. Reports no chest pain, no palpitations. No abdominal pain nausea or vomiting, no urinary symptoms and no lower extremity edema. No diarrhea constipation. Patient was on Plavix and was discontinued by her neurologist last month. On arrival to to the ED patient hemodynamically stable with a blood pressure of 196/108, heart rate of 124 blood pressure on my interview was 152/91 Labs are significant for labs are unremarkable, head and neck CT angiogram shows no intracranial hemorrhage or acute at a modest ir otorrhea infarct, small areas of encephalomalacia in the high left posterior frontal and parietal lobes consistent with prior watershed infarcts, focal high-grade stenosis of the left internal carotid artery at the junction of the cavernous and supraclinoid segment unchanged. Patient restarted on Plavix and will be admitted for further management Review of Systems Review of Systems: Yes all other systems are reviewed and are negative [facility] Medical History Fatty liver Hypertension Morbid obesity QUENTIN (obstructive sleep apnea) Family History Mother Sleep apnea Diabetes Father Diabetes Dementia Brother No problems noted. Brother No problems noted. Brother No problems noted. Brother No problems noted. Brother No problems noted. Brother No problems noted. Sister Obesity Sister No problems noted. Son No problems noted. Son No problems noted. Daughter No problems noted. Other No family history of cerebrovascular accident (CVA) Surgical History Previous section Social History Alcohol intake: former Patient Tobacco Use Status: Former Tobacco user Quit Date: 5 YRS AGO Substance Use Type: Marijuana Advance Directives: No Advance Directives Information Provided: No service: No Current occupational status: employed Meds Allergies Allergy/AdvReac Type Severity Reaction Status Date / Time No Known Allergies Allergy Unknown Verified 08/08/22 08:48 [No Known Allergies*] Active Medications: Current Medications Acetaminophen (Acetaminophen 325 Mg Tablet) 650 mg PO Q6H PRN PRN Reason: Pain, Mild (Pain Scale 1-3) Clopidogrel Bisulfate (Clopidogrel Bisulfate 75 Mg Tablet) 75 mg PO DAILY IGNACIA Docusate Sodium (Docusate Sodium 100 Mg Capsule) 100 mg PO DAILY PRN PRN Reason: Constipation Ondansetron HCl (Ondansetron Hcl 4 Mg/2 Ml Vial) 4 mg IVPUSH Q8H PRN PRN Reason: Nausea and Vomiting Pharmacy Consult (Consult Rx Perform Med Rec) 1 each MISCELLANE ONCE PRN PRN Reason: Consult order Home Medications Medication Instructions Recorded Confirmed Last Taken Type clopidogrel 75 mg tablet 1 tab PO DAILY 08/17/22 08/17/22 Unknown History Physical Exam Vital Signs and Narrative: Vital Signs: Last Vital Signs Temp 98.0 F 08/17/22 19:38 Pulse 84 08/17/22 22:40 Resp 20 08/17/22 22:40 BP 152/91 H 08/17/22 22:40 Pulse Ox 96 08/17/22 22:40 O2 Del Method 08/17/22 22:40 BMI result Body Mass Index 44.7 Const: General: cooperative and no acute distress Orientation/consciousness: patient oriented x3 Eyes: General: appearance normal, both eyes and all related structures Resp: Effort & Inspection: normal respiratory effort Auscultation: clear to auscultation bilaterally Cardio: Rate: regular rate Rhythm: regular rhythm GI: Palpation (GI): Soft to palpation Auscultation: normal bowel sounds Skin: General skin exam: no rashes or lesions noted Neuro: Other: Cranial nerve 2-12 intact strength3/5 in the upper left extremity, 4/5 in left lower extremity General: patient oriented x3 Results Labs CBC and Chem 7: 08/17/22 20:15 08/17/22 20:15 Labs: Laboratory Results - last 24 hr 08/17/22 08/17/22 08/17/22 20:15 20:15 20:15 MCV 83.4 MCH 28.6 MCHC 34.3 RDW 12.5 Plt Count 219 MPV 10.9 Immature Gran % (Auto) 0.2 Neut % (Auto) 51.0 Lymph % (Auto) 37.6 [place] % (Auto) 7.5 Eos % (Auto) 3.3 Baso % (Auto) 0.4 Lymph # (Auto) 2.1 [place] # (Auto) 0.4 Eos # (Auto) 0.2 Baso # (Auto) 0.0 Abs Immat Gran (auto) 0.01 Absolute Neuts (auto) 2.8 Absolute Nucleated RBC 0.000 Nucleated RBC % (auto) 0.0 PT 11.4 INR 1.0 APTT 29.1 Anion Gap 11 L Estim Creat Clear Calc 110.3 Estimated GFR > 60 POC Glucose Random Glucose 146 H Calcium 9.1 Total Bilirubin 0.3 AST 15 ALT 25 Alkaline Phosphatase 76 Total Protein 7.1 Albumin 4.3 COVID-19 (EFREN) COVID-19 Clin Com 08/17/22 08/17/22 20:32 21:11 MCV MCH MCHC RDW Plt Count MPV Immature Gran % (Auto) Neut % (Auto) Lymph % (Auto) [place] % (Auto) Eos % (Auto) Baso % (Auto) Lymph # (Auto) [place] # (Auto) Eos # (Auto) Baso # (Auto) Abs Immat Gran (auto) Absolute Neuts (auto) Absolute Nucleated RBC Nucleated RBC % (auto) PT INR APTT Anion Gap Estim Creat Clear Calc Estimated GFR POC Glucose 137 H Random Glucose Calcium Total Bilirubin AST ALT Alkaline Phosphatase Total Protein Albumin COVID-19 (EFREN) Negative COVID-19 Clin Com See Note Imaging Radiologist's Impressions: Impressions Head/Neck CTA 08/17/22 20:13 IMPRESSION: 1. No intracranial hemorrhage or acute edematous territorial infarct. If concern for no small infarct, suggest MRI for more sensitive assessment. 2. Small areas of encephalomalacia in the high left posterior frontal and parietal lobes consistent with prior watershed infarcts. 3. Focal high-grade stenosis of the left internal carotid artery at the junction of the cavernous and supraclinoid segments, unchanged. 4. No other intracranial arterial stenosis or occlusion. 5. Patent cervical carotid and vertebral arteries. 6. Unchanged 2 mm outpouching from the left supraclinoid ICA that may represent an infundibulum or small aneurysm. Assessment and Plan (1) Transient ischemic attack (TIA): Status: Acute (2) Hypertensive urgency: Status: Acute Plan 37 yo F with hx of CVA with residual right sided weakness presents to the hospital with episodes of right facial droop #TIA - W hx of CVA - restart plavix, continue ASA - continue statin - MRI in AM - neurology consult - Risk factor stratifications including hgba1c and lipid battery complete on previous admission - echo in march showed no valvular pathology # hypertensive urgency - possibly due to TIA - hold home antihypertensives till am - follow bp # QUENTIN - refuses cpap in past # obesity - being evaluated by Gen Surg Dr Smith for possible sleeve gastrectomy DVT ppx: early ambulation Time Spent With Patient Time: Total time managing care of this patient today ____ minutes. Quality Stroke Does the patient have a stroke diagnosis?: No VTE Prior VTE?: No VTE Risk Level:: Medical - low VTE Device Contraindication: Treatment Not Indicated VTE Drug Contraindication: Treatment Not Indicated
--- NOTE | 2022-08-18 02:12 | PC.NURSE ---
Pt sleeping at the bedside. Breahts are even and unlabored with equal chest rises. No apparent distress noted. Will continue to monitor.
[2022-08-18 07:21] LABS: Basophils Percent Auto 0.4 % (0-2); Eosinophils Absolute Auto 0.1 X10*3/uL (0.0-0.4); Eosinophils Percent Auto 3.1 % (0-4); Hematocrit 40.7 % (37.0-47.0); Hemoglobin 13.4 g/dl (12.0-16.0); Imm Gran Abs Auto 0.01 X10*3/uL (0.00-0.03); Imm Gran Pct Auto 0.2 % (0.0-0.4); Lymphocytes Absolute Auto 1.6 X10*3/uL (1.2-4.9); Lymphocytes Percent Auto 36.5 % (20-40); MANUAL DIFF FLAG SCAN; Mean Corpuscular HGB Conc 32.9 g/dl (31.0-35.0); Mean Corpuscular Hemoglobin 28.3 pg (27.0-33.0); Mean Corpuscular Volume 85.9 fL (80.0-98.0); Mean Platelet Volume 12.2 fL (9.4-12.3); Monocytes Absolute Auto 0.4 X10*3/uL (0.1-1.2); Monocytes Percent Auto 8.1 % (2-11); Neutrophils Absolute Auto 2.3 x10*3/uL (2.0-8.3); Neutrophils Percent Auto 51.7 % (45-73); PLT CLUMP 1; Red Blood Count 4.74 X10*6/uL (4.20-5.50); Red Cell Distribution Width 12.7 % (11.0-16.0); SCAN SMEAR FLAG 1
[2022-08-18 07:33] LABS: Anion Gap 12 (12-20); Blood Urea Nitrogen 12 mg/dL (9-16); Calcium 8.8 mg/dL (8.4-10.2); Carbon Dioxide 22 mmol/L (22-29); Chloride 109 mmol/L (96-108); Estimated Glomerular Filt Rate > 60; Glucose Random 117 mg/dL (60-115); Potassium 4.3 mmol/L (3.3-5.1); Sodium 139 mmol/L (135-145)
--- NOTE | 2022-08-18 07:44 | PHA.MEDREC ---
Pharmacy Consult ? Medication Reconciliation Pharmacy has reviewed the medication reconciliation completed by Marimar. Evy Pickett, PharmD
[2022-08-18 07:45] LABS: Platelet Count 149 X10*3/uL (160-400); SLIDE REVIEW VERIFIED; White Blood Count 4.5 X10*3/uL (4.8-10.8)
--- NOTE | 2022-08-18 08:05 | PC.NURSE ---
pt is a/o x 4, no sob/korin notd speaks in ful;l sentences. lungs - slightly diminished. heart sounds normal. abd soft non-tender and obese. bs + x 4 quads. neuros - wnl. no edema noted. pt states that she had a cva 3-4 months ago. r hand grasps slightly weaker s/po cva 3-4 months ago.pt aware of plan of care.
[2022-08-18] MEDS: Clopidogrel Bisulfate 75 MG TABLET PO (08:17)
[2022-08-18] MEDS: Thiamine HCL 100 MG TABLET 50 MG PO (08:18)
[2022-08-18] MEDS: Cholecalciferol (Vitamin D3) 25 MCG TABLET 50 MCG PO (08:18)
[2022-08-18] MEDS: Aspirin 81 MG TAB.CHEW PO (08:18)
[2022-08-18] MEDS: Cyanocobalamin (Vitamin B-12) 1,000 MCG TABLET 1000 MCG PO (08:18)
[2022-08-18 08:19] LABS: Estimated Average Glucose 97 mg/dL
[2022-08-18 08:28] LABS: Cholesterol 99 mg/dL; HDL Cholesterol 29 mg/dL; LDL Cholesterol Calculated 55 mg/dl; Triglycerides 75 mg/dL
--- NOTE | 2022-08-18 08:59 | PC.NURSE ---
pt seen by physical therapy pt aware of plan of care.
--- NOTE | 2022-08-18 09:04 | PC.NURSE ---
dr. dolan at bedside pt aware of care.
--- NOTE | 2022-08-18 11:27 | HO.PM.IMPN ---
Subjective Subjective Date of Service: 08/18/22 Interval History: fu for TIA Review of Systems Denies any new complaints-chest pain or shortness of breath or nausea or vomiting Moving all extremities. Physical Exam Vital Signs: Vital Signs: Last Vital Signs Temp 98.1 F 08/18/22 08:11 Pulse 79 08/18/22 08:11 Resp 17 08/18/22 08:11 BP 123/69 08/18/22 08:11 Pulse Ox 98 08/18/22 08:11 O2 Del Method 08/18/22 08:11 BMI result Body Mass Index 44.7 Appearance: Alert.? Oriented X3.? not in distress.? cvs: rrr, [id number] , no murmur res: clear to auscultation ,no rhonchii or wheezing abd: no rebound or guarding ,nt, bs present. ext pulses present , no cyanosis . neuro: axo3 , strength3/5 in the upper left extremity, 4/5 in left lower extremity Objective Data Active Medications Acetaminophen (Acetaminophen 325 Mg Tablet) 650 mg PO Q6H PRN PRN Reason: Pain, Mild (Pain Scale 1-3) Aspirin (Aspirin 81 Mg Tab.Chew) 81 mg PO DAILY [facility] Last Admin: 08/18/22 08:18 Dose: 81 mg Documented By: JASON Atorvastatin Calcium (Atorvastatin Calcium 80 Mg Tablet) 80 mg PO BEDTIME [facility], [facility]1983 Clopidogrel Bisulfate (Clopidogrel Bisulfate 75 Mg Tablet) 75 mg PO DAILY [facility] Last Admin: 08/18/22 08:17 Dose: 75 mg Documented By: JASON Cyanocobalamin (Cyanocobalamin (Vitamin B-12) 1,000 Mcg Tablet) 1,000 mcg PO DAILY [facility] Last Admin: 08/18/22 08:18 Dose: 1,000 mcg Documented By: JASON Docusate Sodium (Docusate Sodium 100 Mg Capsule) 100 mg PO DAILY PRN PRN Reason: Constipation Ondansetron HCl (Ondansetron Hcl 4 Mg/2 Ml Vial) 4 mg IVPUSH Q8H PRN PRN Reason: Nausea and Vomiting Pharmacy Consult (Consult Rx Perform Med Rec) 1 each MISCELLANE ONCE PRN PRN Reason: Consult order Thiamine HCl (Thiamine Hcl 100 Mg Tablet) 50 mg PO DAILY [facility] Last Admin: 08/18/22 08:18 Dose: 50 mg Documented By: JASON Vitamin D (Cholecalciferol (Vitamin D3) 25 Mcg Tablet) 50 mcg PO DAILY IGNACIA Last Admin: 08/18/22 08:18 Dose: 50 mcg Documented By: JASON Labs CBC & Chem 7: 08/18/22 06:39 08/18/22 06:39 Labs: Laboratory Results - last 24 hr 08/17/22 08/17/22 08/17/22 20:15 20:15 20:15 MCV 83.4 MCH 28.6 MCHC 34.3 RDW 12.5 Plt Count 219 MPV 10.9 Immature Gran % (Auto) 0.2 Neut % (Auto) 51.0 Lymph % (Auto) 37.6 [place] % (Auto) 7.5 Eos % (Auto) 3.3 Baso % (Auto) 0.4 Lymph # (Auto) 2.1 [place] # (Auto) 0.4 Eos # (Auto) 0.2 Baso # (Auto) 0.0 Abs Immat Gran (auto) 0.01 Absolute Neuts (auto) 2.8 Absolute Nucleated RBC 0.000 Nucleated RBC % (auto) 0.0 Smear Tech's Comments PT 11.4 INR 1.0 APTT 29.1 Anion Gap 11 L Estim Creat Clear Calc 110.3 Estimated GFR > 60 POC Glucose Random Glucose 146 H Estimat Average Glucose Hemoglobin A1c % Calcium 9.1 Total Bilirubin 0.3 AST 15 ALT 25 Alkaline Phosphatase 76 Total Protein 7.1 Albumin 4.3 Triglycerides Cholesterol LDL Cholesterol, Calc HDL Cholesterol COVID-19 (EFREN) COVID-19 Clin Com 08/17/22 08/17/22 08/18/22 20:32 21:11 06:39 MCV 85.9 MCH 28.3 MCHC 32.9 RDW 12.7 Plt Count 149 L D MPV 12.2 Immature Gran % (Auto) 0.2 Neut % (Auto) 51.7 Lymph % (Auto) 36.5 [place] % (Auto) 8.1 Eos % (Auto) 3.1 Baso % (Auto) 0.4 Lymph # (Auto) 1.6 [place] # (Auto) 0.4 Eos # (Auto) 0.1 Baso # (Auto) 0.0 Abs Immat Gran (auto) 0.01 Absolute Neuts (auto) 2.3 Absolute Nucleated RBC 0.000 Nucleated RBC % (auto) 0.0 Smear Tech's Comments VERIFIED PT INR APTT Anion Gap Estim Creat Clear Calc Estimated GFR POC Glucose 137 H Random Glucose Estimat Average Glucose Hemoglobin A1c % Calcium Total Bilirubin AST ALT Alkaline Phosphatase Total Protein Albumin Triglycerides Cholesterol LDL Cholesterol, Calc HDL Cholesterol COVID-19 (EFREN) Negative COVID-19 Clin Com See Note 08/18/22 08/18/22 06:39 06:39 MCV MCH MCHC RDW Plt Count MPV Immature Gran % (Auto) Neut % (Auto) Lymph % (Auto) [place] % (Auto) Eos % (Auto) Baso % (Auto) Lymph # (Auto) [place] # (Auto) Eos # (Auto) Baso # (Auto) Abs Immat Gran (auto) Absolute Neuts (auto) Absolute Nucleated RBC Nucleated RBC % (auto) Smear Tech's Comments PT INR APTT Anion Gap 12 Estim Creat Clear Calc 125.0 Estimated GFR > 60 POC Glucose Random Glucose 117 H Estimat Average Glucose 97 Hemoglobin A1c % 5.0 Calcium 8.8 Total Bilirubin AST ALT Alkaline Phosphatase Total Protein Albumin Triglycerides 75 Cholesterol 99 LDL Cholesterol, Calc 55 HDL Cholesterol 29 COVID-19 (EFREN) COVID-19 Clin Com Assessment and Plan (1) Transient ischemic attack (TIA): Status: Acute (2) Hypertensive urgency: Status: Acute Plan 37 yo F with hx of CVA with residual right sided weakness presents to the hospital with episodes of right facial droop #TIA - W hx of CVA - restart plavix, continue ASA - continue statin - MRI in AM - neurology consult - Risk factor stratifications including hgba1c and lipid battery complete on previous admission - echo in march showed no valvular pathology # htn blood pressure improving - possibly due to TIA - hold home antihypertensives ,if htn uncontolled -will reintroduce amlodipine. - follow bp # QUENTIN - refuses cpap in past # obesity - being evaluated by Gen Surg Dr Smith for possible sleeve gastrectomy DVT ppx: early ambulation inpatient need: Tia -workup and neurology eval pending Time Spent With Patient Time: Total time managing care of this patient today ____ minutes. Quality Stroke Does the patient have a stroke diagnosis?: No VTE Prior VTE?: No VTE Risk Level:: Medical - low VTE Device Contraindication: Treatment Not Indicated VTE Drug Contraindication: Treatment Not Indicated
--- NOTE | 2022-08-18 12:32 | MHC.CM.PN ---
[facility]LL[facility] DELIVERED PT LIVES WITH PARTNER IN AN APT. NO DME OR PRIOR SERVICES. NO HCP, DECLINES AT THIS TIME. NO COVID VAX. PCP DR. ANDERSON DP: HOME, NO SERVICES ANTICIPATED. PARTNER WILL TRANSPORT
--- NOTE | 2022-08-18 19:01 | PC.NURSE ---
report received from Eileen DIETZ
[2022-08-18] MEDS: Atorvastatin Calcium 80 MG TABLET PO (20:26)
--- NOTE | 2022-08-18 20:27 | PC.NURSE ---
pt ambulatory to and from bathroom with steady gait. speaking on phone with friend. no apparent distress.
[2022-08-19 06:44] VITALS: BP 148/86; PULSE 80; RESP 16; TEMP 36.6; O2SAT 100
--- NOTE | 2022-08-19 07:15 | PC.NURSE ---
d care of patient, pt resting comfortably in bed, breakfast tray delivered, awaiting inpt bed, VSS
[2022-08-19] MEDS: Cyanocobalamin (Vitamin B-12) 1,000 MCG TABLET 1000 MCG PO (07:50)
[2022-08-19] MEDS: Clopidogrel Bisulfate 75 MG TABLET PO ×2 (07:50→17:11)
[2022-08-19] MEDS: Cholecalciferol (Vitamin D3) 25 MCG TABLET 50 MCG PO (07:50)
[2022-08-19] MEDS: Thiamine HCL 100 MG TABLET 50 MG PO (07:50)
[2022-08-19] MEDS: Aspirin 81 MG TAB.CHEW PO (07:51)
[2022-08-19 10:39] VITALS: BP 126/58; PULSE 66; RESP 17; O2SAT 97
--- NOTE | 2022-08-19 14:19 | P.CNNE_ITS ---
History of Present Illness Data of Consult Service Date: 08/19/22 Primary Care Provider: Unknown Physician HPI Reason for consult: stroke with right arm weakness This is a 37-year-old female with past medical history of CVA with right hand weakness in Mar 2022, hypertension, QUENTIN does not tolerate CPAP, presents the hospital with complaints of right facial drooping, x2 today, as well as 1 episode of right-sided lower extremity weakness that occurred several days prior.? Patient reports no headache, no change in vision, denies any slurred speech.? Symptoms resolved? within minutes.? Patient was on Plavix that was discontinued by her neurologist last month. Her blood pressure was 196/108, heart rate of 124. Labs are unremarkable. Head and neck CT angiogram shows no intracranial hemorrhage or acute infarct, small areas of encephalomalacia in the high left posterior frontal and parietal lobes consistent with prior watershed infarcts, focal high-grade stenosis of the left internal carotid artery at the junction of the cavernous and supraclinoid? segment unchanged from Mar 2022. MRI shows two punctate cortical infarcts in the left frontal and parietal regions Review of Systems Review of Systems: Denies any new complaints-chest pain or shortness of breath or nausea or vomiting Moving all extremities. Yes all other systems are reviewed and are negative [facility] Past Medical History Medical History Fatty liver Hypertension Morbid obesity QUENTIN (obstructive sleep apnea) Family History Family History Mother Sleep apnea Diabetes Father Diabetes Dementia Brother No problems noted. Brother No problems noted. Brother No problems noted. Brother No problems noted. Brother No problems noted. Brother No problems noted. Sister Obesity Sister No problems noted. Son No problems noted. Son No problems noted. Daughter No problems noted. Other No family history of cerebrovascular accident (CVA) Surgical History Surgical History Previous section Social History Social History Alcohol intake: former Patient Tobacco Use Status: Former Tobacco user Quit Date: 5 YRS AGO Substance Use Type: Marijuana Advance Directives: No Advance Directives Information Provided: No service: No Current occupational status: employed Meds Allergies Allergy/AdvReac Type Severity Reaction Status Date / Time No Known Allergies Allergy Unknown Verified 08/08/22 08:48 [No Known Allergies*] Active Medications: Current Medications Acetaminophen (Acetaminophen 325 Mg Tablet) 650 mg PO Q6H PRN PRN Reason: Pain, Mild (Pain Scale 1-3) Aspirin (Aspirin 81 Mg Tab.Chew) 81 mg PO DAILY [facility] Last Admin: 08/19/22 07:51 Dose: 81 mg Atorvastatin Calcium (Atorvastatin Calcium 80 Mg Tablet) 80 mg PO BEDTIME [facility] Last Admin: 08/18/22 20:26 Dose: 80 mg Clopidogrel Bisulfate (Clopidogrel Bisulfate 75 Mg Tablet) 75 mg PO DAILY [facility] Last Admin: 08/19/22 07:50 Dose: 75 mg Cyanocobalamin (Cyanocobalamin (Vitamin B-12) 1,000 Mcg Tablet) 1,000 mcg PO DAILY [facility] Last Admin: 08/19/22 07:50 Dose: 1,000 mcg Docusate Sodium (Docusate Sodium 100 Mg Capsule) 100 mg PO DAILY PRN PRN Reason: Constipation Ondansetron HCl (Ondansetron Hcl 4 Mg/2 Ml Vial) 4 mg IVPUSH Q8H PRN PRN Reason: Nausea and Vomiting Pharmacy Consult (Consult Rx Perform Med Rec) 1 each MISCELLANE ONCE PRN PRN Reason: Consult order Thiamine HCl (Thiamine Hcl 100 Mg Tablet) 50 mg PO DAILY [facility] Last Admin: 08/19/22 07:50 Dose: 50 mg Vitamin D (Cholecalciferol (Vitamin D3) 25 Mcg Tablet) 50 mcg PO DAILY [facility] Last Admin: 08/19/22 07:50 Dose: 50 mcg Home Medications Medication Instructions Recorded Confirmed Last Taken Type clopidogrel 75 mg tablet 1 tab PO DAILY 08/17/22 08/17/22 Unknown History Physical Exam Vital Signs: Vital Signs: Last Vital Signs Temp 97.9 F 08/19/22 06:44 Pulse 66 08/19/22 10:39 Resp 17 08/19/22 10:39 BP 126/58 L 08/19/22 10:39 Pulse Ox 97 08/19/22 10:39 O2 Del Method 08/19/22 10:39 BMI result Body Mass Index 44.7 Const: General: cooperative and no acute distress Orientation/consciousness: patient oriented x3 Eyes: General: appearance normal, both eyes and all related structures Resp: Effort & Inspection: normal respiratory effort Auscultation: clear to auscultation bilaterally Cardio: Rate: regular rate Rhythm: regular rhythm GI: Palpation (GI): Soft to palpation Auscultation: normal bowel sounds Skin: General skin exam: no rashes or lesions noted Neuro: Other: Alert and oriented with normal speech and language functions. Cranial nerve 2- 12 intact Pronation drift of RUE . Hazmat Cdl A Driver weakness 4-/4. Proximal strength intact. Slow rapid alternating movements. RLE normal. General: patient oriented x3 Results Labs CBC & Chem 7: 08/18/22 06:39 08/18/22 06:39 Assessment and Plan (1) Ischemic cerebral stroke due to intracranial large artery atherosclerosis: Status: Acute two punctate cortical infarcts in watershed zone in left frontal and parietal areas due to high grade stenosis of left ICA intracranially. Recom. Add As an isPlavix 75 mg. Out patient consult to interventionalist for possible stenting of left ICA (2) Hypertensive urgency: Status: Acute Plan 37 yo F with hx of CVA with residual right sided weakness presents to the hospital with episodes of right facial droop #TIA - W hx of CVA - restart plavix, continue ASA - continue statin - MRI in AM - neurology consult - Risk factor stratifications including hgba1c and lipid battery complete on previous admission - echo in march showed no valvular pathology # htn blood pressure improving - possibly due to TIA - hold home antihypertensives ,if htn uncontolled -will reintroduce amlodipine. - follow bp # QUENTIN - refuses cpap in past # obesity - being evaluated by Gen Surg Dr Smith for possible sleeve gastrectomy DVT ppx: early ambulation inpatient need: Tia -workup and neurology eval pending Time Spent With Patient Time: Total time managing care of this patient today ____ minutes. Procedures Date of Service Date of Service: 08/19/22
--- NOTE | 2022-08-19 15:50 | MHC.CM.PN ---
Patient has been medically cleared for dc to home today, self care.
[2022-08-19 16:00] VITALS: BP 127/84; PULSE 102; RESP 16; TEMP 36.6; O2SAT 97
--- NOTE | 2022-08-19 16:45 | MHC.STROKE ---
WALK IN 08/17/22 AT 1928, C/O RIGHT FACE NUMBNESS AT 1000 AND AGAIN 1800 ON 08/17/22. EXAMINED BY PROVIDER. NIHSS = 0, EXCLUDED FROM THROMBOLYTICS BASED ON THIS. CTA H-N DONE, NO LVO BUT STENOSIS NOTED ACCORDING TO DR PENALOZA. HE ROUNDED AND EXPLAINED THAT SHE MAY NEED INTRACRANIAL STENTS DONE AT [facility]. THE PATIENT SEES DR GUILLEN AND WE WILL DISCUSS THIS WITH HIM IN THE MORNING. I REVIEWED HER MRI IMAGES AND GAVE HER A SCREENSHOT AND DISCUSSED THE PLAN OF CARE. I REVIEWED THE STROKE EDUCATION BOOKLET. SHE IS KNOWN TO THE STROKE SERVICE FROM A PREVIOUS ADMISSION IN MARCH 2022, SINCE THAT TIME HER RIGHT ARM HEMIPARESIS HAS GREATLY IMPROVED, ONLY A SMALL PRONATOR DRIFT. SHE HAS BEEN BACK TO WORK AT [employer]. DR MUNOZ IS RECOMMENDING TO AVOID HYPOTENSION, I DID RELAY THIS INFORMATION TO HER RN. I WILL CONTINUE TO FOLLOW.
[2022-08-19 16:48] LABS: Glucose, Whole Blood 99 mg/dL (60-115)
--- NOTE | 2022-08-19 17:15 | P.DS_ITS ---
DS: Providers Provider Date of Service: 08/19/22 Date of admission: 08/17/22 22:46 Date of discharge: 08/19/22 Primary care physician: Marta Argueta MD Attending physician on admission: Hemalatha Cesar Consults: 08/17/22 21:17 Consult to Neurology Stat Consulting Provider: Neurology Angelique [facility] Reason for consultation: TIA, hx CVA Has provider been notified: Yes 08/17/22 22:45 Consult to Neurology Routine Consulting Provider: Neurology Angelique [facility] Reason for consultation: TIA,hx of CVA [facility] clinician: Suyapa Orlelana DS: Diagnosis Discharge Diagnosis (1) Ischemic cerebral stroke due to intracranial large artery atherosclerosis: Status: Acute (2) Hypertensive urgency: Status: Acute DS: Summary Time Spent with Patient Time attestation: Total time managing care of this patient today ____ minutes. Discharge coordination time: Greater than 30 minutes Quality: Safe Use of Opioids Does Pt have an Active Cancer Diagnosis on the Problem List?: No Quality: Stroke Does the patient have a stroke diagnosis?: No Physical Exam Vital Signs: Vital Signs: Last Vital Signs Temp 97.8 F 08/19/22 16:00 Pulse 102 H 08/19/22 16:00 Resp 16 08/19/22 16:00 BP 127/84 08/19/22 16:00 Pulse Ox 97 08/19/22 16:00 O2 Del Method 08/19/22 16:00 BMI result Body Mass Index 44.7 HPI and admission by Dr. Cesar on 08/18/2022 Chief Complaint: facial drooping ?37-year-old female with past medical history of CVA, hypertension, QUENTIN does not tolerate CPAP, presents the hospital with complaints of right facial drooping, x2 today, as well as 1 episode of right-sided lower extremity weakness that occurred several days prior.? Patient reports no headache, no change in vision, denies any slurred speech.? Symptoms resolved? Within minutes.? Reports no chest pain, no palpitations.? No abdominal pain nausea? or vomiting, no urinary symptoms and no lower extremity edema.? No diarrhea constipation.? Patient was on Plavix and was discontinued by her neurologist last month. On arrival to? to the ED patient hemodynamically stable with a blood pressure of 196/108, heart rate of 124 blood pressure on my interview was 152/91 Labs are significant for? labs are unremarkable, ?head and neck CT angiogram shows no intracranial hemorrhage or acute at a modest ir otorrhea infarct, small areas of encephalomalacia in the high left posterior frontal and parietal lobes consistent with prior watershed infarcts, focal high-grade stenosis of the left internal carotid artery at the junction of the cavernous and supraclinoid? segment unchanged. ? Patient restarted on Plavix and will be admitted for further management Hospital course: Hospital course uneventful. Patient had a recurrent of symptoms and was evaluated by Physical therapy. Noted to be at baseline functionally noted to have residual right-sided hemiparesis following CVA in 03/2022. No further services required. She was treated with high-dose statin 80 mg tore the statin, aspirin 81 mg, and Plavix 75 mg. She was not a tPA candidate. She was evaluated by Neurology who is recommending ongoing dual antiplatelet therapy and high-dose statin as well as outpatient follow-up with vascular surgery for possible stenting of the left ICA with high-grade stenosis noted on head/neck CTA. Blood pressures the patient is normotensive on discharge at 127/84. She is counseled on the importance of compliance with antihypertensive therapy, statin therapy, and dual antiplatelet therapy. She should follow up with PCP soon. DS: Data Data Completed and Pending Labs on day of discharge: Laboratory Results - last 24 hr 08/19/22 16:45 POC Glucose 99 Discharge Plan Discharge Anticipated Discharge Date/Time: 08/19/22 16:29 Patient Disposition: Home, Self-Care Discharge Diagnosis: CVA Referrals: Jeffery Carranza MD [Physician] - 1 Week (Per neuro: Recommending possible stenting of ICA with high grade stenosis ICA. Admitted for acute stroke ) Marta Luo MD [Primary Care Provider] - 1 Week Discharge Medications: Continued cholecalciferol (vitamin D3) 50 mcg (2,000 unit) capsule 50 mcg PO DAILY Qty: 30 5RF cyanocobalamin (vitamin B-12) 1,000 mcg tablet 1,000 mcg PO DAILY Qty: 30 5RF thiamine HCl (vitamin B1) 50 mg tablet 50 mg PO DAILY Qty: 30 5RF valsartan 80 mg tablet 80 mg PO DAILY Qty: 30 1RF clopidogrel 75 mg tablet 1 tab PO DAILY Qty: 30 0RF atorvastatin 80 mg Tablet 80 mg PO BEDTIME Qty: 90 0RF aspirin 81 mg Tablet,Chewable 81 mg PO DAILY Qty: 90 0RF amlodipine 5 mg tablet 5 mg PO DAILY Qty: 30 0RF Discharge Orders: Discharge Order (Routine); Ordered 08/19/22 Ordered By: Suyapa Orellana Diet: Regular diet Activity on Discharge: As tolerated Stand Alone Forms: Patient Portal Discharge page Care Plan Goals: Follow up with vascular surgery for possible stenting of left internal carotid artery to prevent recurrence of stroke Health Concerns: Recurrent CVA/TIA High-grade stenosis of the internal carotid artery Plan of Treatment: Recurrent CVA (stroke)- likely due to uncontrolled blood pressures and high grade stenosis of the internal carotid artery -it is imperative that you are compliant with antihypertensive medications as well as aspirin and Plavix, and atorvastatin 80 mg daily to help prevent recurrence of stroke -you will need evaluation by vascular surgery for possible stenting of the internal carotid artery to clear any blockages and allow for adequate blood flow to the brain to prevent recurrent CVA. He will be contacted to schedule an appointment. If you do not hear from the office, please do not hesitate to contact the vascular surgery office -your evaluated by Physical therapy during your admission and were found to be at baseline. Please continue working on any outpatient physical therapy you may have been placed Please continue following with bariatric surgery as well to work on lifestyle modification and weight loss which will significantly improve your overall health and functioning. .. Assessment: See above
== END 2022-08-19 18:00 | disposition home or self-care (01) | DRG 45 ==
LOC: HO.ED 21:19 → HO.EDOVER 08-18 07:07
PROVIDERS: Internal Medicine; Physician Assistant; Physician Assistant Medical; Admitting Provider Internal Medicine; Emergency Provider Internal Medicine; PCP Internal Medicine; Visit Provider Physician Assistant
DX: I63.9 Cerebral infarction, unspecified (principal); I69.351 Hemiplegia and hemiparesis following cerebral infarction affecting right dominant side; I67.2 Cerebral atherosclerosis; E66.01 Morbid (severe) obesity due to excess calories; I10 Essential (primary) hypertension; G47.33 Obstructive sleep apnea (adult) (pediatric); R29.700 NIHSS score 0; I16.0 Hypertensive urgency; Z20.822 Contact with and (suspected) exposure to COVID-19; Z68.41 Body mass index [BMI] 40.0-44.9, adult; Z87.891 Personal history of nicotine dependence; Z79.02 Long term (current) use of antithrombotics/antiplatelets; Z79.82 Long term (current) use of aspirin; Z79.899 Other long term (current) drug therapy
CPT/HCPCS: 36415; 70496; 70498; 70551; 80048; 80053; 80061; 82947; 83036; 85025; 85610; 85730; 87635; 93005; 97161; 97165; 99284; Q9967

== ENCOUNTER → 2022-08-21 11:40 | Outpatient (BNVA) | payer OTHER, SELFPAY | PROVIDERS: PCP Internal Medicine; Visit Provider Dietitian, Registered | DX: E66.01 Morbid (severe) obesity due to excess calories (principal); Z68.41 Body mass index [BMI] 40.0-44.9, adult; Z71.3 Dietary counseling and surveillance | CPT/HCPCS: 97803 ==

== ENCOUNTER 2022-09-01 07:55 | Outpatient (REF) | payer OTHER, SELFPAY ==
--- NOTE | ~2022-09-01 | FL_ITS ---
EXAMINATION: XR FLUOROSCOPY UPPER GI WITH AIR CLINICAL INFORMATION: Morbid severe obesity due to excess calories COMPARISON: None TECHNIQUE: After effervescent granules, fluoroscopy was performed as the patient swallowed thick and thin barium in upright and prone position. FINDINGS: The patient initiated swallowing normally. Normal appearance of the cervical esophagus. Normal esophageal peristalsis. No fixed esophageal mucosal abnormality to suggest fracture or mass. No hiatal hernia. No reflux seen spontaneously or with provocative maneuvers. Normal gastric fold pattern and distensibility. Normal appearance of the gastric antrum, duodenal bulb, and sweep. Normal gastric emptying. FLUOROSCOPY TIME: 2.2 minutes DOSE AREA PRODUCT: 34.625 Gy-cm2 (funk-centimeter squared) FL/FL upper GI w air IMPRESSION: Normal upper GI series.
--- NOTE | ~2022-09-01 | US_ITS ---
EXAMINATION: US COMPLETE ABDOMEN WITH LIVER ELASTOGRAPHY CLINICAL INFORMATION: Morbid severe obesity due to excess calories COMPARISON: None. TECHNIQUE: Real-time imaging of the abdominal viscera. Noninvasive ultrasound liver fibrosis assessment is performed using Cassie ElastPQ point quantification shear wave elastography (2D-SWE) with a C5-2 MHz transducer. Multiple elastography samples are obtained. FINDINGS: PANCREAS: Visualized proximal pancreas is normal. Distal pancreas obscured by bowel gas. ABDOMINAL AORTA: The proximal, middle, and distal aortic segments are normal in caliber. INFERIOR VENA CAVA: Visualized portions are normal. LIVER: Mildly increased hepatic echogenicity and sound attenuation suggesting diffuse hepatic steatosis. No focal liver lesion. No biliary ductal dilatation. The right lobe measures 17.1 cm in length. The left lobe measures 11.8 cm in length. Portal flow is towards the liver (hepatopetal). Shear wave liver elastography median stiffness is 1.46 m/s (reference: normal median stiffness is 1.3 m/s or less). IQR/median stiffness to assess sampling precision is 0.07 (reference: good quality data set is IQR/median stiffness of 0.15 or less). GALLBLADDER: Normal. The gallbladder is physiologically distended without evidence of stones, sludge, polyps, wall thickening or pericholecystic fluid. COMMON BILE DUCT: Normal in caliber measuring 0.3 cm in diameter. RIGHT KIDNEY: Normal. No hydronephrosis. No renal calculi or focal parenchymal lesions. The kidney measures 11.6 cm in maximum dimension. LEFT KIDNEY: Normal. No hydronephrosis. No renal calculi or focal parenchymal lesions. The kidney measures 11.0 cm in maximum dimension. SPLEEN: Normal. The spleen measures 11.5 cm in maximum dimension. FREE FLUID: None. US/US abdomen comp w elastography IMPRESSION: 1. Sonographic appearance consistent with diffuse hepatic steatosis. 2. Liver elastography: In the absence of other known clinical signs, measurements rule out compensated advanced chronic liver disease. If there are known clinical signs, further testing may be needed for confirmation. REFERENCE: Society of Radiologists in Ultrasound Liver Stiffness Thresholds (2019): LIVER STIFFNESS THRESHOLDS: *Liver Stiffness equal or less than 1.3 m/s: High probability of being normal. *Liver Stiffness less than 1.7 m/s: In the absence of other known clinical signs, rules out compensated advanced chronic liver disease. OTHER CONSIDERATIONS: The stage of liver fibrosis may be overestimated in the setting of acute hepatitis, liver inflammation, elevated liver function tests, hepatic vascular congestion, obstructive cholestasis, non-fasting state, and infiltrative diseases such as amyloidosis and lymphoma. In some patients with NAFLD, the liver stiffness thresholds for compensated advanced chronic liver disease may be lower. In causes other than viral hepatitis and NAFLD, liver stiffness thresholds are not well established.
== END 2022-09-01 07:56 | disposition home or self-care (01) ==
LOC: HO.US 07:55
PROVIDERS: PCP Internal Medicine; Visit Provider Physician Assistant
DX: E66.01 Morbid (severe) obesity due to excess calories (principal); K76.0 Fatty (change of) liver, not elsewhere classified; G47.33 Obstructive sleep apnea (adult) (pediatric)
CPT/HCPCS: 74246; 76705; 76981

== ENCOUNTER → 2022-09-04 14:48 | Outpatient (BNVA) | payer OTHER, SELFPAY | PROVIDERS: PCP Internal Medicine; Visit Provider Physician Assistant | DX: E66.01 Morbid (severe) obesity due to excess calories (principal); G47.33 Obstructive sleep apnea (adult) (pediatric); I63.40 Cerebral infarction due to embolism of unspecified cerebral artery; Z68.41 Body mass index [BMI] 40.0-44.9, adult | CPT/HCPCS: 99212 ==

== ENCOUNTER → 2022-09-08 08:55 | Outpatient (BNVA) | payer OTHER, SELFPAY | PROVIDERS: PCP Internal Medicine; Visit Provider Surgery | DX: E66.01 Morbid (severe) obesity due to excess calories (principal); Z68.41 Body mass index [BMI] 40.0-44.9, adult; F50.81 Binge eating disorder; I10 Essential (primary) hypertension; K76.0 Fatty (change of) liver, not elsewhere classified; G47.33 Obstructive sleep apnea (adult) (pediatric); Z86.73 Personal history of transient ischemic attack (TIA), and cerebral infarction without residual deficits | CPT/HCPCS: 99212 ==

== ENCOUNTER → 2022-09-25 15:37 | Outpatient (BNVA) | payer OTHER, SELFPAY | PROVIDERS: PCP Internal Medicine; Visit Provider Physician Assistant | DX: E66.01 Morbid (severe) obesity due to excess calories (principal); K76.0 Fatty (change of) liver, not elsewhere classified; I65.29 Occlusion and stenosis of unspecified carotid artery; I10 Essential (primary) hypertension; G47.33 Obstructive sleep apnea (adult) (pediatric); Z68.41 Body mass index [BMI] 40.0-44.9, adult; Z99.89 Dependence on other enabling machines and devices | CPT/HCPCS: 99212 ==

== ENCOUNTER → 2022-10-08 13:31 | Outpatient (BNVA) | payer OTHER, SELFPAY | PROVIDERS: PCP Internal Medicine; Visit Provider Surgery | DX: E66.01 Morbid (severe) obesity due to excess calories (principal); Z68.41 Body mass index [BMI] 40.0-44.9, adult; G47.33 Obstructive sleep apnea (adult) (pediatric); K76.0 Fatty (change of) liver, not elsewhere classified; I16.0 Hypertensive urgency; F50.81 Binge eating disorder; Z86.73 Personal history of transient ischemic attack (TIA), and cerebral infarction without residual deficits | CPT/HCPCS: 99212 ==

== ENCOUNTER → 2022-10-15 13:52 | Outpatient (BNVA) | payer OTHER, SELFPAY | PROVIDERS: PCP Internal Medicine; Visit Provider Internal Medicine | DX: G47.33 Obstructive sleep apnea (adult) (pediatric) (principal); E66.01 Morbid (severe) obesity due to excess calories; Z68.41 Body mass index [BMI] 40.0-44.9, adult | CPT/HCPCS: 99202 ==

== ENCOUNTER → 2022-10-22 15:12 | Outpatient (BNVA) | payer OTHER, SELFPAY | PROVIDERS: PCP Internal Medicine; Visit Provider Physician Assistant | DX: E66.01 Morbid (severe) obesity due to excess calories (principal); G47.33 Obstructive sleep apnea (adult) (pediatric); K76.0 Fatty (change of) liver, not elsewhere classified; I10 Essential (primary) hypertension; I63.59 Cerebral infarction due to unspecified occlusion or stenosis of other cerebral artery | CPT/HCPCS: 99212 ==

== ENCOUNTER 2022-11-14 08:53 | Outpatient (REF) | payer OTHER, SELFPAY ==
--- NOTE | 2022-11-14 10:06 | PFT_ITS ---
Forced vital capacity is 67%, FEV1 71%, and FEV1/FVC ratio is 88. [id number] 78% and MVV is 74%. Post bronchodilator therapy, there is only slight improvement in [id number]. LUNG VOLUMES: Total lung capacity 72%, residual volume is 82%. Diffusion capacity is 109%. CONCLUSION: 1. Mild restrictive pulmonary disorder. 2. A mild degree of obstructive disorder of the small airways with slight response to bronchodilator therapy. Clinical correlation is recommended. Danyelle Santana MD MSB/MODL / [id number]
== END 2022-11-14 08:54 | disposition home or self-care (01) ==
LOC: HO.RESP 08:53
PROVIDERS: PCP Internal Medicine; Visit Provider Internal Medicine
DX: J98.4 Other disorders of lung (principal); E66.01 Morbid (severe) obesity due to excess calories; G47.33 Obstructive sleep apnea (adult) (pediatric)
CPT/HCPCS: 94060; 94727; 94729

== ENCOUNTER 2022-11-28 09:21 | Emergency (ER) | payer OTHER, SELFPAY ==
[2022-11-28 09:35] VITALS: BP 166/88; PULSE 118; RESP 18; TEMP 36.4; O2SAT 100; BMI 41.5
--- NOTE | 2022-11-28 09:49 | ED.NEUROSD ---
HPI - Neuro Symptoms/Deficit General Chief Complaint: Extremity Problem Stated Complaint: R Leg Weakness Time Seen by Provider: 11/28/22 09:48 Source: patient Mode of arrival: ambulatory Limitations: no limitations History of Present Illness HPI Narrative: 37 yo female with history of CVA 03/2022 with mild residual right hand weakness on ASA and plavix, TIA, QUENTIN, HTN urgency, carotid stenosis, restritive lung disease, morbid obesity who presents to the ER for evaluation of intermittent, transient RLE weakness and tingling along with facial numbness and tingling that started last night around 7 pm. She states when she was going to the bathroom last night when she had sudden onset of RLE weakness that lasted about a minute. She couldn't walk a the time but after about 1 minute she could. She no longer has RLE weakness but has been having intermittent episodes of tingling in the right lower leg and Onset (ago): hour(s) (15) Time: 19:00 Location: right face and right leg History of same: Yes Severity: moderate Quality: weak, numb, tingling and intermittent Relieving factors: rest Exacerbating factors: none Context: sudden onset On Anticoagulants: Yes (aspirin and plavix) Associated symptoms: denies other symptoms Treatments Prior to Arrival: none Related Data Previous Rx's Medication Instructions Recorded valsartan 80 mg tablet 80 mg PO DAILY #30 tabs 03/15/22 amlodipine 5 mg tablet 5 mg PO DAILY #30 tabs 04/07/22 aspirin 81 mg chewable tablet 81 mg PO DAILY #90 tabs 04/07/22 atorvastatin 80 mg tablet 80 mg PO BEDTIME #90 tabs 04/07/22 cholecalciferol (vitamin D3) 50 50 mcg PO DAILY #30 caps 06/19/22 mcg (2,000 unit) capsule cyanocobalamin (vitamin B-12) 1,000 mcg PO DAILY #30 tabs 06/19/22 1,000 mcg tablet clopidogrel 75 mg tablet 1 tab PO DAILY #30 tabs 08/19/22 apixaban 5 mg tablet (Eliquis) 5 mg PO BID #60 tabs 11/28/22 Allergies Allergy/AdvReac Type Severity Reaction Status Date / Time No Known Allergies Allergy Unknown Verified 11/03/22 14:36 [No Known Allergies*] Review of Systems Review of Systems: Yes all other systems are reviewed and are negative PMFSH Past Medical History Medical History (Updated 11/28/22 @ 11:06 by ISABELA Red) Fatty liver Hypertension Morbid obesity QUENTIN (obstructive sleep apnea) Restrictive lung disease Surgical History Previous section Family History Family History Mother Sleep apnea Diabetes Father Diabetes Dementia Brother No problems noted. Brother No problems noted. Brother No problems noted. Brother No problems noted. Brother No problems noted. Brother No problems noted. Sister Obesity Sister No problems noted. Son No problems noted. Son No problems noted. Daughter No problems noted. Other No family history of cerebrovascular accident (CVA) Social History Social History Alcohol intake: former Patient Tobacco Use Status: Former Tobacco user Quit Date: 5 YRS AGO Years Smoked: 2012 Substance Use Type: Marijuana Advance Directives: No service: No Current occupational status: employed Physical Exam Vital Signs: Vital Signs: Last Vital Signs Temp 97.6 F 11/28/22 09:35 Pulse 118 H 11/28/22 09:35 Resp 18 11/28/22 09:35 BP 166/88 H 11/28/22 09:35 Pulse Ox 100 11/28/22 09:35 BMI result Body Mass Index 41.5 Appearance: Alert. Oriented X3. No acute distress. Head: normocephalic, atraumatic. Eyes: Pupils equal, round and reactive to light. ENT: Pharynx normal. No tonsillar swelling or exudate. Neck: Normal inspection. Neck supple. CVS: Normal heart rate and rhythm. Pulses normal. Respiratory: No respiratory distress. Breath sounds normal. Abdomen: Obese, Soft and nontender. +BS x4 Skin: Skin warm and dry. Normal skin color. Normal skin turgor. No rashes. Extremities: No lower extremity edema. No joint swelling. Neuro/psych: Oriented X 3. Very slight right hand grasp weakness compared to the left, otherwise strength is equal and symmetrical throughout. CN II-XII intact. Normal speech and cognition. Steady gait. No sensory deficits. Course Reevaluation(s) Reevaluation #1: Spoke with Dr. Larios and permit coordinator Marybel - case reviewed and they know the patient very well. She has been to [facility] and has an appointment December 25 for intracranial angiogram. Her provider at [facility] was also contacted and this appointment was moved up to next thursday. Dr. Larios would like to stop plavix and start eliquis. continue baby aspirin. Patient updated on plan of care stable for d/c home. no repeat imaging needed today per Neurology Medical Decision Making Medical Decision Making [facility] Narrative: 37 yo female with history of CVA 04/07, TIA, HTN, obesity, QUENTIN, coming in with transient RLE weakness and intermittent numbness/tingling in the RLE and right face since last night at 7pm. NIH 0. She is at her baseline neurologically with very mild right hand grasp weakness due to her prior stroke. No current symptoms. Her clinical presentation is c/w TIA. Neuro and permit coordinator contacted - no repeat imaging needed. plan is to start on Eliqiuis, stop plavix, continue ASA. She will get an intracranial angiogram on Thursday, has close follow up. Stable for d/c home. Patient updated on plan and all questiosn were answered. Differential Diagnosis Differential Diagnoses: The differential diagnosis associated with the presentation includes CVA, TIA, electrolyte abnormality, neuropathy, thyroid disease Admission/Observation Consideration of admission/observation: Escalation of care including admission/observation considered Consult Healthcare Provider Management of the patient was discussed with: Breast Puller Dr. Larios from Neurology Lab Data [facility] Lab Attestation statement: I reviewed the patient's lab results. 11/28/22 10:50 11/28/22 10:49 Labs: Lab Results 11/28/22 11/28/22 11/28/22 Range/Units 10:49 10:50 10:50 WBC 4.8 (4.8-10.8) X10*3/uL RBC 4.48 (4.20-5.50) X10*6/uL Hgb 12.3 (12.0-16.0) g/dl Hct 37.4 (37.0-47.0) % MCV 83.5 (80.0-98.0) fL MCH 27.5 (27.0-33.0) pg MCHC 32.9 (31.0-35.0) g/dl RDW 13.7 (11.0-16.0) % Plt Count 192 D (160-400) X10*3/uL MPV 10.9 (9.4-12.3) fL Immature Gran % (Auto) 0.2 (0.0-0.4) % Neut % (Auto) 63.8 (45-73) % Lymph % (Auto) 26.9 (20-40) % [place] % (Auto) 7.6 (2-11) % Eos % (Auto) 1.3 (0-4) % Baso % (Auto) 0.2 (0-2) % Lymph # (Auto) 1.3 (1.2-4.9) X10*3/uL [place] # (Auto) 0.4 (0.1-1.2) X10*3/uL Eos # (Auto) 0.1 (0.0-0.4) X10*3/uL Baso # (Auto) 0.0 (0.0-0.2) X10*3/uL Abs Immat Gran (auto) 0.01 (0.00-0.03) X10*3/uL Absolute Neuts (auto) 3.0 (2.0-8.3) x10*3/uL Absolute Nucleated RBC 0.000 (0.0-0.012) X10*3/uL Nucleated RBC % (auto) 0.0 (0.0-0.2) /100WBC PT 11.6 (10.0-13.1) SEC INR 1.0 (0.9-1.1) APTT 28.4 (26.0-36.4) SEC Sodium 141 (135-145) mmol/L Potassium 4.0 (3.3-5.1) mmol/L Chloride 113 H (96-108) mmol/L Carbon Dioxide 24 (22-29) mmol/L Anion Gap 8 L (12-20) BUN 13 (9-16) mg/dL Creatinine 0.74 (0.5-1.4) mg/dL Estim Creat Clear Calc 111.6 Estimated GFR > 60 Random Glucose 107 (60-115) mg/dL Calcium 8.3 L (8.4-10.2) mg/dL Total Bilirubin 0.3 (0.0-1.0) mg/dL Direct Bilirubin 0.1 (0.0-0.5) mg/dL AST 12 (5-31) U/L ALT 19 (0-31) U/L Alkaline Phosphatase 58 (39-117) U/L Total Protein 6.6 (6.5-8.0) g/dL Albumin 3.9 (3.5-5.0) g/dL External Record Review External record reviewed: Inpatient record, Office record, Outpatient record, Prior outpatient labs and Prior outpatient radiology Tests considered The following testing was considered but not selected: CTA considered - not indicated today Prescription Management I considered prescription management with: Other (anticoagulation) Chronic Conditions Patient?s care impacted by: Hypertension and Other (obesity) NIH Stroke Scale Internal: Initial- Upon Arrival Level of Consciousness: Alert Level of Consciousness Questions: Answers both questions correctly Level of Consciousness Commands: Performs both tasks correctly Best Gaze: Normal Visual: No visual loss Facial Palsy: Normal Motor Arm (Right): No drift Motor Arm (Left): No drift Motor Leg (Right): No drift Motor Leg (Left): No drift Limb Ataxia: Absent Sensory: Normal Best Language: No aphasia Dysarthia: Normal Extinction and Inattention: No abnormality Score: 0 Critical Care Time Critical Care Time Critical Care Time: Yes Total Critical Care Time: 35 Attestation: I have personally provided critical care time exclusive of time spent on separately billable procedures. Time includes review of lab data, discussion with consultants, and monitoring for potential decompensation. Intervention performed as documented. Discharge Plan Discharge Clinical Impression: TIA on medication Patient Disposition: Home, Self-Care Instructions: Transient Ischemic Attack (ED) Additional Instructions: Your lab workup today was unremarkable. STOP taking your Plavix. CONTINUE baby aspirin 81 mg per day. START taking the blood thinner called Eliquis - 5mg two times per day This medication can cause bleeding - monitor for signs of bleeding including bloody or black stools. If you were to sustain a fall you would need to be evaluated for possible bleeding. Follow up with [facility] on Thursday for intracranial angiogram Prescriptions: New Eliquis 5 mg tablet 5 mg PO BID Qty: 60 0RF No Action cholecalciferol (vitamin D3) 50 mcg (2,000 unit) capsule 50 mcg PO DAILY Qty: 30 5RF cyanocobalamin (vitamin B-12) 1,000 mcg tablet 1,000 mcg PO DAILY Qty: 30 5RF valsartan 80 mg tablet 80 mg PO DAILY Qty: 30 1RF clopidogrel 75 mg tablet 1 tab PO DAILY Qty: 30 0RF atorvastatin 80 mg Tablet 80 mg PO BEDTIME Qty: 90 0RF aspirin 81 mg Tablet,Chewable 81 mg PO DAILY Qty: 90 0RF amlodipine 5 mg tablet 5 mg PO DAILY Qty: 30 0RF Referrals: Marta Luo MD [Primary Care Provider] -
[2022-11-28 10:53] LABS: MANUAL DIFF FLAG NO
[2022-11-28 10:55] LABS: Basophils Percent Auto 0.2 % (0-2); Eosinophils Absolute Auto 0.1 X10*3/uL (0.0-0.4); Eosinophils Percent Auto 1.3 % (0-4); Hematocrit 37.4 % (37.0-47.0); Hemoglobin 12.3 g/dl (12.0-16.0); Imm Gran Abs Auto 0.01 X10*3/uL (0.00-0.03); Imm Gran Pct Auto 0.2 % (0.0-0.4); Lymphocytes Absolute Auto 1.3 X10*3/uL (1.2-4.9); Lymphocytes Percent Auto 26.9 % (20-40); Mean Corpuscular HGB Conc 32.9 g/dl (31.0-35.0); Mean Corpuscular Hemoglobin 27.5 pg (27.0-33.0); Mean Corpuscular Volume 83.5 fL (80.0-98.0); Mean Platelet Volume 10.9 fL (9.4-12.3); Monocytes Absolute Auto 0.4 X10*3/uL (0.1-1.2); Monocytes Percent Auto 7.6 % (2-11); Neutrophils Percent Auto 63.8 % (45-73); Platelet Count 192 X10*3/uL (160-400); Red Blood Count 4.48 X10*6/uL (4.20-5.50); Red Cell Distribution Width 13.7 % (11.0-16.0); White Blood Count 4.8 X10*3/uL (4.8-10.8)
[2022-11-28 11:00] LABS: Prothrombin Time 11.6 SEC (10.0-13.1)
[2022-11-28 11:03] LABS: Partial Thromboplastin Time 28.4 SEC (26.0-36.4)
[2022-11-28 11:14] LABS: Alanine Aminotransferase 19 U/L (0-31); Albumin Level 3.9 g/dL (3.5-5.0); Alkaline Phosphatase 58 U/L (39-117); Anion Gap 8 (12-20); Aspartate Amino Transferase 12 U/L (5-31); Bilirubin Direct 0.1 mg/dL (0.0-0.5); Bilirubin Total 0.3 mg/dL (0.0-1.0); Blood Urea Nitrogen 13 mg/dL (9-16); Calcium 8.3 mg/dL (8.4-10.2); Carbon Dioxide 24 mmol/L (22-29); Chloride 113 mmol/L (96-108); Creatinine Clr Calc Pharmacy 111.6; Estimated Glomerular Filt Rate > 60; Glucose Random 107 mg/dL (60-115); Sodium 141 mmol/L (135-145); Total Protein 6.6 g/dL (6.5-8.0)
--- NOTE | 2022-11-28 11:40 | MHC.STROKE ---
1030 DISCUSSED PATIENT WITH ED PROVIDER, PATIENT IS WELL KNOWN TO THE STROKE SERVICE. THIS PATIENT IS AN OUT PATIENT OF DR. GUILLEN'S AND HIS OFFICE DID REFER HER TO DR. DAY NEURO-INTERVENTIONAL RADIOLOGIST AT [facility]. ACCORDING TO THE PATIENT SHE DID GO TO [facility] AND SEE SOMEONE IN DR. DAY'S OFFICE. SHE IS BOOKED FOR AN ANGIOGRAM December. I DID NOTIFY DR. GUILLEN THAT SHE WAS IN THE ED AND HE CALLED THE ED AND SPOKE TO THE PROVIDER. HER NIHSS = 0, DR. GUILLEN RECOMMENDED DISCONTINUING THE PLAVIX AND ADDING ELIQUIS. I ALSO CONTACTED BARB MATSON AND LET HIM KNOW SHE WAS AT [facility] AND WE WERE ADDING ELIQUIS BID AND DISCONTINUING THE PLAVIX. HE SAID THAT HE WILL RESCHEDULE THE PATIENT FOR HER ANGIOGRAM FOR THIS ThursdayNovember AND [facility] WILL BE CONTACTING HER WITH ADDITIONAL INFORMATION. I DID RELAY ALL OF THIS INFORMATION TO THE PATIENT AND PROVIDED STROKE EDUCATION. SHE IS VERY TEARY AND I ALSO PROVIDED REASSURANCE AND SUPPORT. I DID ADVISE HER TO STAY OUT OF WORK, IF SYMPTOMS RETURN TO CALL 911 AND RETURN TO THE HOSPITAL. I ADVISED HER TO TAKE HER BP, SHE HAS A MACHINE BUT THE BATTERY IS LOW. I ADVISED HER TO FILL THE PRESCRIPTION AND TAKE ALL MEDICATIONS PRESCRIBED. SHE SHOULD TAKE IT EASY AND REST AND AVOID HYPOTENSION. ALL OF THIS INFORMATION WAS SHARED WITH THE ED PROVIDER AND NURSE. AT THIS TIME THE PATIENT IS SYMPTOM FREE, SHE HAS SOME RIGHT RESIDUAL NUMBNESS AND SLIGHT WEAKNESS FROM PRIOR STROKE. I AM AVAILABLE FOR ANY QUESTIONS.
== END 2022-11-28 11:40 | disposition home or self-care (01) ==
PROVIDERS: Physician Assistant; Emergency Provider Emergency Medicine; PCP Internal Medicine
DX: G45.9 Transient cerebral ischemic attack, unspecified (principal); R53.1 Weakness; R20.2 Paresthesia of skin; I10 Essential (primary) hypertension; K76.0 Fatty (change of) liver, not elsewhere classified; F12.90 Cannabis use, unspecified, uncomplicated; E66.9 Obesity, unspecified; Z68.41 Body mass index [BMI] 40.0-44.9, adult; Z79.82 Long term (current) use of aspirin; Z79.01 Long term (current) use of anticoagulants; Z79.02 Long term (current) use of antithrombotics/antiplatelets
CPT/HCPCS: 36415; 80048; 80076; 85025; 85610; 85730; 99281; 99283; 99284

== ENCOUNTER → 2022-12-17 13:50 | Outpatient (BNVA) | payer OTHER, SELFPAY | PROVIDERS: PCP Internal Medicine; Visit Provider Internal Medicine | DX: G47.33 Obstructive sleep apnea (adult) (pediatric) (principal); E66.01 Morbid (severe) obesity due to excess calories; Z68.41 Body mass index [BMI] 40.0-44.9, adult; J98.4 Other disorders of lung; Z99.89 Dependence on other enabling machines and devices | CPT/HCPCS: 99212 ==

== ENCOUNTER → 2023-01-09 09:59 | Outpatient (BNVA) | payer OTHER, SELFPAY | PROVIDERS: PCP Internal Medicine; Referring Provider Internal Medicine; Visit Provider Surgery | DX: E66.01 Morbid (severe) obesity due to excess calories (principal); Z68.41 Body mass index [BMI] 40.0-44.9, adult; G47.33 Obstructive sleep apnea (adult) (pediatric); I10 Essential (primary) hypertension; Z86.73 Personal history of transient ischemic attack (TIA), and cerebral infarction without residual deficits | CPT/HCPCS: 99212 ==

== ENCOUNTER 2023-07-02 09:49 | Outpatient (AMB) | payer OTHER, SELFPAY ==
--- NOTE | 2023-07-02 09:59 | A.OFFVIS_ITS ---
Intake Vital Signs 07/02/23 10:00 Height 5 ft 1 in Weight 241 lb BMI 45.5 BP 130/78 Blood Pressure Location Lt brachial Position Sitting Pulse 85 Pulse Source Pulse Oximeter Pulse Oximetry (%) 95 Oxygen Delivery Method Room Air Intake Visit Reasons: Obstructive sleep apnea Intake Note: pt is here for follow up and states she has been using been using cpap but we need to send for new supplies. Early Childhood Teacher Assistant Required: No Allergies No Known Allergies [No Known Allergies*] Allergy (Unknown, Verified 07/02/23 10:04) Medication List - Last Reconciled 07/02/23 by Danyelle Santana MD amlodipine 5 mg PO DAILY aspirin 81 mg PO DAILY atorvastatin 80 mg PO BEDTIME ticagrelor (Brilinta) 90 mg PO BID valsartan 80 mg PO DAILY Do you need a note to return to daycare/school/sports/work: No HPI Obstructive sleep apnea HPI Details 37 YEARS OLD FEMALE WITH MORBID OBESITY AND DIAGNOSIS OF OBSTRUCTIVE SLEEP APNEA, SHE IS HERE FOR. 6 MONTHS FOLLOW-UP HE USES CPAP VERY REGULARLY AND SLEEPS GOOD, SHE HAS NO ISSUES WITH THE CPAP DEVICE AT THE MASK ( NASAL ) NEEDS NEW SUPPLIES . SHE HAS FALLEN OUT OF THE WEIGHT MANAGEMENT PROGRAM, BECAUSE SHE COULD NOT HAVE SURGERY. AND SHE HAS NOW GAINED ABOUT 13-14 LB OF WEIGHT SINCE LAST VISIT. [facility] Medical History Restrictive lung disease Fatty liver QUENTIN (obstructive sleep apnea) Morbid obesity Hypertension Surgical History Previous section Family History Mother Sleep apnea Diabetes Father Diabetes Dementia Brother No problems noted. Brother No problems noted. Brother No problems noted. Brother No problems noted. Brother No problems noted. Brother No problems noted. Sister Obesity Sister No problems noted. Son No problems noted. Son No problems noted. Daughter No problems noted. Other No family history of cerebrovascular accident (CVA) Social History Alcohol intake: former Patient Tobacco Use Status: Former Tobacco user Quit Date: 5 YRS AGO Years Smoked: 2012 Substance Use Type: Marijuana service: No Current occupational status: employed Review of Systems Const All systems reviewed & are unremarkable except as noted in HPI and below Eyes Reports no additional complaints ENT Reports nasal congestion (Mild intermittent) Card Denies chest pain, Denies irregular heart rhythm, Denies leg edema, Denies lightheadedness and Reports dyspnea on exertion (Mild) Resp Denies cough, Reports dyspnea on exertion (Mild) and Denies wheezing GI Reports no additional complaints Reports no additional complaints Musc Reports no additional complaints Skin/Breast Reports system reviewed and no additional complaints, except as documented Neuro Reports no additional complaints (H/o recurrent strokes, recent workup at [facility] .) Psych Reports no additional complaints Endo Reports no additional complaints [place]/Lymph Reports no additional complaints Aller/Immun Denies wheezing Physical Exam Vital Signs: Last Vital Signs Pulse 85 07/02/23 10:00 BP 130/78 07/02/23 10:00 Pulse Ox 95 07/02/23 10:00 Oxygen Delivery Method Room Air 07/02/23 10:00 BMI result Body Mass Index 45.5 Patient is grossly obese with a round face. NECK CIRCUMFERENCE 17 IN. MALLAMPATI SCALE 4. Const General: comfortable, no acute distress, alert and awake Orientation/consciousness: patient oriented x3 HEENT Head: Yes normal to inspection General nose exam: No nasal polyps present and No nasal discharge present Face and sinus: Yes sinuses nontender Mouth: oropharynx abnormals (NARROW AND CROWDED, MALLAMPATI SCALE 4) Throat: Yes posterior oropharynx normal Eyes General: appearance normal, both eyes and all related structures Neck Neck: Yes normal visual inspection, Yes no lymphadenopathy, Yes trachea midline, Yes no JVD and Yes other (NECK SIZE 17 IN) Thyroid: Thyroid normal Chest Chest palpation & inspection: normal inspection of the chest, normal palpation of entire chest wall and no tenderness Resp Other: PERCUSSION NOTE IS HARDLY PERCEPTIBLE BECAUSE OF THE THICK CHEST WALL. BREATH SOUNDS ARE DISTANT DUE TO OBESITY, AND ESPECIALLY DECREASED OVER THE BASILAR AREAS. BOTH LUNGS ARE CLEAR TO AUSCULTATION. Cardio Palpation: normal PMI Rate: regular rate Rhythm: regular rhythm Heart sounds: no gallops and no murmurs Peripheral pulses: Peripheral pulses 2+ throughout GI Palpation (GI): Soft to palpation, nontender, No hepatosplenomegaly present, no masses and Other GI palpation findings present (ABDOMEN IS OBESE AND PROTUBERANT) Auscultation: normal bowel sounds Back/Spine/Pelvis Thoracic/Lumbar Spine: thoracic and lumbar spine normal to inspection Skin General skin exam: no rashes or lesions noted Neuro General: patient oriented x3 and no focal motor deficits Cranial nerves: Yes CN's II-XII intact bilaterally Extrem General: Yes normal to inspection, Yes no clubbing, cyanosis or edema and Yes no calf tenderness Psych Appearance: grossly normal and well kempt Speech and movement: Normal speech and movement present Results Reviewed Results Reviewed: COMPLIANCE REPORT FOR THE LAST 30 NIGHTS IS REVIEWED AND SHE HAS USED 30/30 NIGHTS, 100% OF THE TIME. AVERAGE USE IT PER NIGHT 6 HOURS 36 MINUTES. PRESSURE SETTING 6-16 CM AND SHE USES MOSTLY 12-13 CM. THERE IS NO SIGNIFICANT AIR LEAK. RESIDUAL AHI 0.8 Assessment & Plan Assessment & Plan (1) Morbid obesity: Comment: PATIENT REMAINS MORBIDLY OBESE. SHE HAS FALLEN OUT OF THE WEIGHT MANAGEMENT PROGRAM SHE COULD NOT UNDERGO SURGERY. NOW SHE HAS PUT ON SOME WEIGHT AGAIN. HAD A GOOD DISCUSSION AND ADVISED HER TO MANAGE HER DIET AND TRY TO KEEP WALKING DAILY. Code(s): E66.01 - Morbid (severe) obesity due to excess calories (2) QUENTIN (obstructive sleep apnea): Comment: PATIENT IS A REGULAR USER OF CPAP EVERY NIGHT, WITH VERY GOOD COMPLIANCE. SHE SLEEPS GOOD AND BENEFITS FROM THE USE OF CPAP. SHE IS ON AUTO PAP MODE / USING NASAL MASK/ VOICES NO CONCERNS WITH THE MASK OR CPAP DEVICE. CPAP COMPLIANCE REPORT IS REVIEWED AND SHE IS COMMENDED FOR HER GOOD COMPLIANCE. ORDER FOR NEW SUPPLIES IS SENT. Code(s): G47.33 - Obstructive sleep apnea (adult) (pediatric) (3) Restrictive lung disease: Comment: MILD RESTRICTIVE PULMONARY DISORDER WHICH IS OBVIOUSLY SECONDARY TO HER MORBID OBESITY. SHE DOES NOT HAVE ANY SIGNIFICANT DEGREE OF OBSTRUCTIVE AIRWAY DISORDER. Code(s): J98.4 - Other disorders of lung Coding Level of Care Code Est Pt Level 3 (50752) Diagnoses Morbid obesity E66.01 QUENTIN (obstructive sleep apnea) G47.33 Restrictive lung disease J98.4
[2023-07-02 10:00] VITALS: BP 130/78; PULSE 85; O2SAT 95; BMI 45.5
== END 2023-07-02 10:13 | disposition home or self-care (01) ==
PROVIDERS: PCP Internal Medicine; Visit Provider Internal Medicine
DX: E66.01 Morbid (severe) obesity due to excess calories (principal); G47.33 Obstructive sleep apnea (adult) (pediatric); J98.4 Other disorders of lung
CPT/HCPCS: 99213

== ENCOUNTER → 2023-07-02 09:49 | Outpatient (BNVA) | payer OTHER, SELFPAY | PROVIDERS: PCP Internal Medicine; Visit Provider Internal Medicine | DX: G47.33 Obstructive sleep apnea (adult) (pediatric) (principal); J98.4 Other disorders of lung; E66.01 Morbid (severe) obesity due to excess calories; Z68.42 Body mass index [BMI] 45.0-49.9, adult | CPT/HCPCS: 99212 ==

== ENCOUNTER 2023-07-15 10:33 | Outpatient (AMB) | payer OTHER, SELFPAY ==
--- NOTE | 2023-07-15 10:36 | MHC.OFFVISWM ---
Intake VS Expanded 07/15/23 10:40 BP 144/85 H Blood Pressure Location Rt brachial Blood Pressure Position Sitting Pulse 105 H Pulse Source Pulse Oximeter Temp 98.0 F Temperature Source Temporal Artery Scan Pulse Oximetry 98 Oxygen Delivery Method Room Air Height 5 ft 1 in Weight 232 lb 9.6 oz BMI 43.9 Body Fat % 43.4 Body Fat Mass 101.0 Fat Free Mass 131.6 Visceral Fat Rating 13.0 Body Water % 40.5 Body Water Mass 94.2 Muscle Mass/Score 125.0 Basal Metabolic Rate/Score 1,850 Intake Visit Reasons: OV Follow Up SWL Allergies No Known Allergies [No Known Allergies*] Allergy (Unknown, Verified 07/15/23 10:39) PFSH Medical History Restrictive lung disease Fatty liver QUENTIN (obstructive sleep apnea) Morbid obesity Hypertension Surgical History Previous section Family History Mother Sleep apnea Diabetes Father Diabetes Dementia Brother No problems noted. Brother No problems noted. Brother No problems noted. Brother No problems noted. Brother No problems noted. Brother No problems noted. Sister Obesity Sister No problems noted. Son No problems noted. Son No problems noted. Daughter No problems noted. Other No family history of cerebrovascular accident (CVA) Social History Alcohol intake: former Patient Tobacco Use Status: Former Tobacco user Quit Date: 5 YRS AGO Years Smoked: 2012 Substance Use Type: Marijuana service: No Current occupational status: employed Physical Exam Vital Signs: Last Vital Signs Temp 98.0 F 07/15/23 10:40 Pulse 105 H 07/15/23 10:40 BP 144/85 H 07/15/23 10:40 Pulse Ox 98 07/15/23 10:40 Oxygen Delivery Method Room Air 07/15/23 10:40 BMI result Body Mass Index 43.9 GI Inspection: Yes normal to inspection and Yes obesity Palpation (GI): Soft to palpation Extrem Right lower extremity: normal to inspection Left lower extremity: normal to inspection Assessment & Plan Assessment & Plan (1) Left-sided carotid artery disease: Code(s): I77.9 - Disorder of arteries and arterioles, unspecified (2) Intracranial carotid stenosis: Code(s): I65.29 - Occlusion and stenosis of unspecified carotid artery (3) Transient ischemic attack (TIA): Code(s): G45.9 - Transient cerebral ischemic attack, unspecified (4) Morbid obesity: Comment: PATIENT REMAINS MORBIDLY OBESE. SHE HAS FALLEN OUT OF THE WEIGHT MANAGEMENT PROGRAM SHE COULD NOT UNDERGO SURGERY. NOW SHE HAS PUT ON SOME WEIGHT AGAIN. HAD A GOOD DISCUSSION AND ADVISED HER TO MANAGE HER DIET AND TRY TO KEEP WALKING DAILY. Code(s): E66.01 - Morbid (severe) obesity due to excess calories Plan: 1) Sleeve gastrectomy. Aspirin will be stopped one week before surgery and she will be started on fondaparinux one per day. Brilinta will be stopped 3 days before the procedure and Fondaparinuix 24 hours before the procedure. The fondaparinxux will be started 24 hours after surgery and the Brilinta in 3 days after procedure and aspirin 7 days after surgery. The patient understands the higher risk she has 2) Dr. Cadet will be stand by in case she needs an emegency procedure postoperatively 3) Start the following nutritional plan of two Orgain protein shakes (1 scoop each in 8oz almond milk) at 8am-10am and 11am-1pm, one Zone Perfect protein bar at 2pm-4pm, dinner at 5pm (8 forks of protein and 8 forks of salad or vegetables) and one more Zone Perfect protein bar at 7pm-9pm 4) Focus on aerobic exercise and burn 2000 calories per week on exercise. She will purchase a stationary bike or a treadmill at home. 5) She will send me her blood pressure daily 6) A referral was made to the Dr. Carranza, our Vascular Surgeon to assist us with perioperative monitoring or any other steps we can take to reduce her perioperative risks Orders: Referrals Vascular Surgery Referral G45.9 - Transient cerebral ischemic attack, unspecified, I65.29 - Occlusion and stenosis of unspecified carotid artery, I77.9 - Disorder of arteries and arterioles, unspecified Coding Level of Care Code Est Pt Level 4 (02467) Diagnoses Left-sided carotid artery disease I77.9 Intracranial carotid stenosis I65.29 Transient ischemic attack (TIA) G45.9 Morbid obesity E66.01 Time Spent (min) 30
[2023-07-15 10:40] VITALS: BP 144/85; PULSE 105; TEMP 36.7; O2SAT 98; BMI 43.9
== END 2023-07-15 11:32 | disposition home or self-care (01) ==
PROVIDERS: PCP Internal Medicine; Visit Provider Surgery
DX: E66.01 Morbid (severe) obesity due to excess calories (principal); Z68.41 Body mass index [BMI] 40.0-44.9, adult; I77.9 Disorder of arteries and arterioles, unspecified; I65.29 Occlusion and stenosis of unspecified carotid artery; G45.9 Transient cerebral ischemic attack, unspecified
CPT/HCPCS: 99214

== ENCOUNTER → 2023-07-15 10:33 | Outpatient (BNVA) | payer OTHER, SELFPAY | PROVIDERS: PCP Internal Medicine; Visit Provider Surgery | DX: E66.01 Morbid (severe) obesity due to excess calories (principal); I77.9 Disorder of arteries and arterioles, unspecified; I65.29 Occlusion and stenosis of unspecified carotid artery; G45.9 Transient cerebral ischemic attack, unspecified; Z68.41 Body mass index [BMI] 40.0-44.9, adult | CPT/HCPCS: 99212 ==

== ENCOUNTER → 2023-08-06 09:00 | Outpatient (BNVA) | payer OTHER, SELFPAY | PROVIDERS: PCP Internal Medicine; Visit Provider Physician Assistant Surgical ==

== ENCOUNTER 2023-08-07 08:24 | Outpatient (AMB) | payer OTHER, SELFPAY ==
--- NOTE | 2023-08-07 11:43 | MHC.OFFVISWM ---
Intake VS Expanded 08/07/23 11:55 Height 5 ft 1 in Weight 227 lb 12 oz BMI 43.0 Intake Visit Reasons: TV Follow Up SWL Allergies No Known Allergies [No Known Allergies*] Allergy (Unknown, Verified 07/15/23 10:39) HPI TV Follow Up SWL HPI Details Start time: 11.30am, End time: 12.02pm ?I spent 27 minutes speaking with the patient on the phone plus an additional 5 minutes reviewing and updating records for a total of 32 minutes HPI Comments History of Present Illness Details Overall weight loss: 4.7lbs, or 2.02% TBWL Is doing 2 Orgain protein shakes (2 scoops in 8oz almond milk), one Pure protein bar and a meal (8 forks of protein and 8 forks of salad or vegetables) Exercise: home exercise videos 2-3 times per day, daily [facility] Medical History Restrictive lung disease Fatty liver QUENTIN (obstructive sleep apnea) Morbid obesity Hypertension Surgical History Previous section Family History Mother Sleep apnea Diabetes Father Diabetes Dementia Brother No problems noted. Brother No problems noted. Brother No problems noted. Brother No problems noted. Brother No problems noted. Brother No problems noted. Sister Obesity Sister No problems noted. Son No problems noted. Son No problems noted. Daughter No problems noted. Other No family history of cerebrovascular accident (CVA) Social History Alcohol intake: former Patient Tobacco Use Status: Former Tobacco user Quit Date: 5 YRS AGO Years Smoked: 2012 Substance Use Type: Marijuana service: No Current occupational status: employed Assessment & Plan Assessment & Plan (1) Morbid obesity: Comment: PATIENT REMAINS MORBIDLY OBESE. SHE HAS FALLEN OUT OF THE WEIGHT MANAGEMENT PROGRAM SHE COULD NOT UNDERGO SURGERY. NOW SHE HAS PUT ON SOME WEIGHT AGAIN. HAD A GOOD DISCUSSION AND ADVISED HER TO MANAGE HER DIET AND TRY TO KEEP WALKING DAILY. Code(s): E66.01 - Morbid (severe) obesity due to excess calories Plan: 1. Please change nutritional plan to one Orgain shake with ONE scoop in 8oz almond milk, another Orgain protein shake (2 scoops in 8oz almond milk), one Pure protein bar and a meal (8 forks of protein and 8 forks of salad or vegetables) 2. Exercise: continue home exercise videos 2-3 times per day, daily 3. Send me weight measurements weekly either by your scale or from the office's scale Telehealth Telehealth Location of provider rendering services: practice address Location of patient: address on file Patient Identification confirmed using: Name, : Yes Telehealth method: voice only Patient verbally consented to treatment: Yes Patient verbally consented to billing insurance company: Yes Patient informed of any privacy concerns related to visit: Yes Minutes spent on Phone/Video with Pt.: 32 Coding Level of Care Code Tele Est Pt Level 4 (87185) Diagnoses Morbid obesity E66.01 Time Spent (min) 32
[2023-08-07 11:55] VITALS: BMI 43.0
== END 2023-08-07 12:03 | disposition home or self-care (01) ==
LOC: HO.HBS 08:24
PROVIDERS: PCP Internal Medicine; Visit Provider Surgery
DX: E66.01 Morbid (severe) obesity due to excess calories (principal)
CPT/HCPCS: 99214

== ENCOUNTER → 2023-08-07 08:24 | Outpatient (BNVA) | payer OTHER, SELFPAY | PROVIDERS: PCP Internal Medicine; Visit Provider Surgery ==

== ENCOUNTER 2023-09-04 08:08 | Outpatient (AMB) | payer OTHER, SELFPAY ==
--- NOTE | 2023-09-04 10:16 | MHC.OFFVISWM ---
Intake VS Expanded 09/04/23 10:22 Height 5 ft 1 in Weight 224 lb 4 oz BMI 42.4 Intake Visit Reasons: TV Follow Up SWL Allergies No Known Allergies [No Known Allergies*] Allergy (Unknown, Verified 07/15/23 10:39) HPI TV Follow Up SWL HPI Details Start time: 10.12am, End time: 10.27am ?I spent 10 minutes speaking with the patient on the phone plus an additional 5 minutes reviewing and updating records for a total of 15 minutes HPI Comments History of Present Illness Details Overall weight loss: 35.3 lbs, or 13.6% TBWL Is doing Orgain protein shake (1 scoop in 8oz almond milk), one Orgain protein shakes (2 scoops in almond milk), one Pure protein bar and one meal (8 forks of protein and 8 forks of salad or vegetables) Exercise: 1 mile walk you tube video 3 times per day PFS Medical History Restrictive lung disease Fatty liver QUENTIN (obstructive sleep apnea) Morbid obesity Hypertension Surgical History Previous section Family History Mother Sleep apnea Diabetes Father Diabetes Dementia Brother No problems noted. Brother No problems noted. Brother No problems noted. Brother No problems noted. Brother No problems noted. Brother No problems noted. Sister Obesity Sister No problems noted. Son No problems noted. Son No problems noted. Daughter No problems noted. Other No family history of cerebrovascular accident (CVA) Social History Alcohol intake: former Patient Tobacco Use Status: Former Tobacco user Quit Date: 5 YRS AGO Years Smoked: 2012 Substance Use Type: Marijuana service: No Current occupational status: employed Assessment & Plan Assessment & Plan (1) Morbid obesity: Comment: PATIENT REMAINS MORBIDLY OBESE. SHE HAS FALLEN OUT OF THE WEIGHT MANAGEMENT PROGRAM SHE COULD NOT UNDERGO SURGERY. NOW SHE HAS PUT ON SOME WEIGHT AGAIN. HAD A GOOD DISCUSSION AND ADVISED HER TO MANAGE HER DIET AND TRY TO KEEP WALKING DAILY. Code(s): E66.01 - Morbid (severe) obesity due to excess calories Plan: 1. Continue same nutritional plan of Orgain protein shake (1 scoop in 8oz almond milk), one Orgain protein shakes (2 scoops in almond milk), one Pure protein bar and one meal (8 forks of protein and 8 forks of salad or vegetables) 2. Exercise: continue 1 mile walk you tube video 3 times per day 3. Continue to send me weight measurements weekly on Saturdays 4. I will discuss the findings of the new CTA with your Neurologist at [facility] and see if we can proceed with the bariatric surgery Telehealth Telehealth Location of provider rendering services: practice address Location of patient: address on file Patient Identification confirmed using: Name, : Yes Telehealth method: voice only Patient verbally consented to treatment: Yes Patient verbally consented to billing insurance company: Yes Patient informed of any privacy concerns related to visit: Yes Minutes spent on Phone/Video with Pt.: 15 Coding Level of Care Code Tele Est Pt Level 2 (82975) Diagnoses Morbid obesity E66.01 Time Spent (min) 15
[2023-09-04 10:22] VITALS: BMI 42.4
== END 2023-09-04 10:28 | disposition home or self-care (01) ==
LOC: HO.HBS 08:08
PROVIDERS: PCP Internal Medicine; Visit Provider Surgery
DX: E66.01 Morbid (severe) obesity due to excess calories (principal)
CPT/HCPCS: 99212

== ENCOUNTER → 2023-09-04 08:08 | Outpatient (BNVA) | payer OTHER, SELFPAY | PROVIDERS: PCP Internal Medicine; Visit Provider Surgery ==

== ENCOUNTER 2023-12-31 10:09 | Outpatient (AMB) | payer OTHER, SELFPAY ==
[2023-12-31 10:16] VITALS: BP 102/68; PULSE 80; O2SAT 98; BMI 42.5
--- NOTE | 2023-12-31 10:16 | MHC.OFFVIS ---
Vital Signs 12/31/23 10:16 Height 5 ft 1 in Weight 224 lb 13.944 oz BMI 42.5 BP 102/68 Blood Pressure Location Lt brachial Position Sitting Pulse 80 Pulse Source Pulse Oximeter Pulse Oximetry (%) 98 Oxygen Delivery Method Room Air Intake Visit Reasons: Obstructive sleep apnea Intake Note: pt is here for follow up of QUENTIN, no issues with cpap Computer Systems Security Analyst Required: No Allergies No Known Allergies [No Known Allergies*] Allergy (Unknown, Verified 12/31/23 10:21) Medication List - Last Reconciled 12/31/23 by Danyelle Santana MD amlodipine 5 mg PO DAILY aspirin 81 mg PO DAILY atorvastatin 80 mg PO BEDTIME ticagrelor (Brilinta) 90 mg PO BID valsartan 80 mg PO DAILY Do you need a note to return to daycare/school/sports/work: No HPI HPI Obstructive sleep apnea: Details: 38 YEARS OLD FEMALE WHO IS MORBIDLY OBESE, AND KNOWN CASE OF OBSTRUCTIVE SLEEP APNEA. COMES BACK AFTER 6 MONTHS FOR FOLLOW-UP. SHE HAS BEEN RELATIVELY COMPLIANT AND USING THE CPAP EVERY NIGHT. SHE DOES USE FOR AT LEAST 4 HOURS EVERY NIGHT. SHE CLAIMS THAT THE CPAP MASK AND THE MACHINE WORKING OKAY. SHE CLAIMS THAT SHE DOES NOT. HAVE DAYTIME SLEEPINESS SHE IS TRYING TO LOSE WEIGHT BUT ON SUCCESSFUL SO FOR. NOW SHE IS STARTED ON ANTI OBESITY MEDS, PFSH Medical History Restrictive lung disease Fatty liver QUENTIN (obstructive sleep apnea) Morbid obesity Hypertension Surgical History Previous section Family History Mother Sleep apnea Diabetes Father Diabetes Dementia Brother No problems noted. Brother No problems noted. Brother No problems noted. Brother No problems noted. Brother No problems noted. Brother No problems noted. Sister Obesity Sister No problems noted. Son No problems noted. Son No problems noted. Daughter No problems noted. Other No family history of cerebrovascular accident (CVA) Social History Alcohol intake: former Patient Tobacco Use Status: Former Tobacco user Quit Date: 5 YRS AGO Years Smoked: 2013 Substance Use Type: Marijuana service: No Current occupational status: employed Review of Systems Const All systems reviewed & are unremarkable except as noted in HPI and below Eyes Reports no additional complaints ENT Reports nasal congestion (Mild intermittent) Card Denies chest pain, Denies irregular heart rhythm, Denies leg edema, Denies lightheadedness and Reports dyspnea on exertion (Mild) Resp Denies cough, Reports dyspnea on exertion (Mild) and Denies wheezing GI Reports no additional complaints Reports no additional complaints Musc Reports no additional complaints Skin/Breast Reports system reviewed and no additional complaints, except as documented Neuro Reports no additional complaints (H/o recurrent strokes, recent workup at [facility] .) Psych Reports no additional complaints Endo Reports no additional complaints Franklin/Lymph Reports no additional complaints Aller/Immun Denies wheezing Physical Exam Vital Signs: Last Vital Signs Pulse 80 12/31/23 10:16 BP 102/68 12/31/23 10:16 Pulse Ox 98 12/31/23 10:16 Oxygen Delivery Method Room Air 12/31/23 10:16 BMI result Body Mass Index 42.5 Patient is grossly obese with a round face. NECK CIRCUMFERENCE 17 IN. MALLAMPATI SCALE 4. Const General: comfortable, no acute distress, alert and awake Orientation/consciousness: patient oriented x3 HEENT Head: Yes normal to inspection General nose exam: No nasal polyps present and No nasal discharge present Face and sinus: Yes sinuses nontender Mouth: oropharynx abnormals (NARROW AND CROWDED, MALLAMPATI SCALE 4) Throat: Yes posterior oropharynx normal Eyes General: appearance normal, both eyes and all related structures Neck Neck: Yes normal visual inspection, Yes no lymphadenopathy, Yes trachea midline, Yes no JVD and Yes other (NECK SIZE 17 IN) Thyroid: Thyroid normal Chest Chest palpation & inspection: normal inspection of the chest, normal palpation of entire chest wall and no tenderness Resp Other: PERCUSSION NOTE IS HARDLY PERCEPTIBLE BECAUSE OF THE THICK CHEST WALL. BREATH SOUNDS ARE DISTANT DUE TO OBESITY, AND ESPECIALLY DECREASED OVER THE BASILAR AREAS. BOTH LUNGS ARE CLEAR TO AUSCULTATION. Cardio Palpation: normal PMI Rate: regular rate Rhythm: regular rhythm Heart sounds: no gallops and no murmurs Peripheral pulses: Peripheral pulses 2+ throughout GI Palpation (GI): Soft to palpation, nontender, No hepatosplenomegaly present, no masses and Other GI palpation findings present (ABDOMEN IS OBESE AND PROTUBERANT) Auscultation: normal bowel sounds Back/Spine/Pelvis Thoracic/Lumbar Spine: thoracic and lumbar spine normal to inspection Skin General skin exam: no rashes or lesions noted Neuro General: patient oriented x3 and no focal motor deficits Cranial nerves: Yes CN's II-XII intact bilaterally Extrem General: Yes normal to inspection, Yes no clubbing, cyanosis or edema and Yes no calf tenderness Psych Appearance: grossly normal and well kempt Speech and movement: Normal speech and movement present Results Reviewed Results Reviewed: COMPLIANCE REPORT IS REVIEWED. SHE USED 29/30 NIGHTS,. 97% OF THE NIGHTS AVERAGE USE IT PER NIGHT 4 HOURS 50 MINUTES. PRESSURE USED MOSTLY. 10-11 CM .NO AIR LEAKAGE RESIDUAL AHI 1.9 Assessment & Plan Assessment & Plan (1) Morbid obesity: Comment: PATIENT REMAINS MORBIDLY OBESE. SHE HAS FALLEN OUT OF THE WEIGHT MANAGEMENT PROGRAM SHE COULD NOT UNDERGO SURGERY. NOW HER WEIGHT IS AT A STANDS STILL. SHE IS HOPING TO LOSE SOME WEIGHT WITH THE HELP OF ANTI OBESITY MEDS. Code(s): E66.01 - Morbid (severe) obesity due to excess calories Category: Medical Plan: HAD A GOOD DISCUSSION AND ADVISED HER TO MANAGE HER DIET AND TRY TO KEEP WALKING DAILY. (2) QUENTIN (obstructive sleep apnea): Comment: PATIENT IS A REGULAR USER OF CPAP EVERY NIGHT, WITH VERY GOOD COMPLIANCE. SHE SLEEPS GOOD AND BENEFITS FROM THE USE OF CPAP. SHE IS ON AUTO PAP MODE / USING NASAL MASK/ VOICES NO CONCERNS WITH THE MASK OR CPAP DEVICE. Code(s): G47.33 - Obstructive sleep apnea (adult) (pediatric) Category: Medical Plan: CPAP COMPLIANCE REPORT IS REVIEWED AND SHE IS COMMENDED FOR HER GOOD COMPLIANCE. ORDER FOR NEW SUPPLIES IS SENT. (3) Restrictive lung disease: Comment: MILD RESTRICTIVE PULMONARY DISORDER WHICH IS OBVIOUSLY SECONDARY TO HER MORBID OBESITY. SHE DOES NOT HAVE ANY SIGNIFICANT DEGREE OF OBSTRUCTIVE AIRWAY DISORDER. Code(s): J98.4 - Other disorders of lung Category: Medical Plan: ADVISED TO CONTINUE LOSING WEIGHT AND DO DEEP BREATHING EXERCISES 2 OR 3 TIMES A DAY . Coding Level of Care Code Est Pt Level 3 (96390) Diagnoses Morbid obesity E66.01 QUENTIN (obstructive sleep apnea) G47.33 Restrictive lung disease J98.4
== END 2023-12-31 10:29 | disposition home or self-care (01) ==
PROVIDERS: PCP Internal Medicine; Visit Provider Internal Medicine
DX: E66.01 Morbid (severe) obesity due to excess calories (principal); G47.33 Obstructive sleep apnea (adult) (pediatric); J98.4 Other disorders of lung
CPT/HCPCS: 99213

== ENCOUNTER → 2023-12-31 10:09 | Outpatient (BNVA) | payer OTHER, SELFPAY | PROVIDERS: PCP Internal Medicine; Visit Provider Internal Medicine | DX: G47.33 Obstructive sleep apnea (adult) (pediatric) (principal); J98.4 Other disorders of lung; E66.01 Morbid (severe) obesity due to excess calories; Z68.41 Body mass index [BMI] 40.0-44.9, adult | CPT/HCPCS: 99212 ==

== ENCOUNTER 2024-06-30 09:57 | Outpatient (AMB) | payer OTHER, SELFPAY ==
--- NOTE | 2024-06-30 10:04 | A.OFFVIS_ITS ---
Vital Signs 06/30/24 10:05 Height 5 ft 1 in Weight 231 lb BMI 43.6 BP 120/80 Blood Pressure Location Lt brachial Position Sitting Pulse 72 Pulse Source Pulse Oximeter Pulse Oximetry (%) 100 Oxygen Delivery Method Room Air Intake Visit Reasons: Obstructive sleep apnea Intake Note: pt is here for QUENTIN follow up and states her cpap is going well Clinical Trial Manager Required: No Allergies No Known Allergies [No Known Allergies*] Allergy (Unknown, Verified 06/30/24 10:16) Medication List - Last Reconciled 06/30/24 by Danyelle Santana MD amlodipine 5 mg PO DAILY aspirin 81 mg PO DAILY atorvastatin 80 mg PO BEDTIME ticagrelor (Brilinta) 90 mg PO BID valsartan 80 mg PO DAILY Do you need a note to return to daycare/school/sports/work: No HPI HPI Obstructive sleep apnea: Details: 38 YEARS OLD FEMALE WITH MORBID OBESITY AND OBSTRUCTIVE SLEEP APNEA, IS HERE FOR 6 MONTHS FOLLOW-UP. SHE IS A VERY REGULAR USER OF CPAP AND IS BENEFITING FROM ITS USE. SHE DOES SLEEP FOR 5-6 HOURS EVERY NIGHT WITH THE CPAP ON. SHE HAS NO PROBLEMS WITH THE MASK OR CPAP DEVICE AT THIS TIME. WEIGHT HAS NOT CHANGED, RATHER GONE UP BY A FEW LBs. SHE STATES THAT SHE COULD NOT CONTINUE WITH ANTI OBESITY MED ( INJECTIONS ) SHE WAS TAKING CARE OF HER MOTHER. SHE WAS ALSO EATING MOSTLY OUTDOORS. NOW SHE PLANS TO EAT HEALTHY FOODS AND IN THE HOUSE, AND INTENDS TO WORK ON WEIGHT REDUCTION. [facility] Medical History Restrictive lung disease Fatty liver QUENTIN (obstructive sleep apnea) Morbid obesity Hypertension Surgical History Previous section Family History Mother Sleep apnea Diabetes Father Diabetes Dementia Brother No problems noted. Brother No problems noted. Brother No problems noted. Brother No problems noted. Brother No problems noted. Brother No problems noted. Sister Obesity Sister No problems noted. Son No problems noted. Son No problems noted. Daughter No problems noted. Other No family history of cerebrovascular accident (CVA) Social History Alcohol intake: former Patient Tobacco Use Status: Former Tobacco user Years Smoked: 2012 Substance Use Type: Marijuana service: No Current occupational status: employed Review of Systems Const All systems reviewed & are unremarkable except as noted in HPI and below Eyes Reports no additional complaints ENT Reports nasal congestion (Mild intermittent) Card Denies chest pain, Denies irregular heart rhythm, Denies leg edema, Denies lightheadedness and Reports dyspnea on exertion (Mild) Resp Denies cough, Reports dyspnea on exertion (Mild) and Denies wheezing GI Reports no additional complaints Reports no additional complaints Musc Reports no additional complaints Skin/Breast Reports system reviewed and no additional complaints, except as documented Neuro Reports no additional complaints (H/o recurrent strokes, recent workup at [facility] .) Psych Reports no additional complaints Endo Reports no additional complaints Franklin/Lymph Reports no additional complaints Aller/Immun Denies wheezing Physical Exam Vital Signs: Last Vital Signs Pulse 72 06/30/24 10:05 BP 120/80 06/30/24 10:05 Pulse Ox 100 06/30/24 10:05 Oxygen Delivery Method Room Air 06/30/24 10:05 BMI result Body Mass Index 43.6 Patient is grossly obese with a round face. NECK CIRCUMFERENCE 17 IN. MALLAMPATI SCALE 4. Const General: comfortable, no acute distress, alert and awake Orientation/consciousness: patient oriented x3 HEENT Head: Yes normal to inspection General nose exam: No nasal polyps present and No nasal discharge present Face and sinus: Yes sinuses nontender Mouth: oropharynx abnormals (NARROW AND CROWDED, MALLAMPATI SCALE 4) Throat: Yes posterior oropharynx normal Eyes General: appearance normal, both eyes and all related structures Neck Neck: Yes normal visual inspection, Yes no lymphadenopathy, Yes trachea midline, Yes no JVD and Yes other (NECK SIZE 17 IN) Thyroid: Thyroid normal Chest Chest palpation & inspection: normal inspection of the chest, normal palpation of entire chest wall and no tenderness Resp Other: PERCUSSION NOTE IS HARDLY PERCEPTIBLE BECAUSE OF THE THICK CHEST WALL. BREATH SOUNDS ARE DISTANT DUE TO OBESITY, AND ESPECIALLY DECREASED OVER THE BASILAR AREAS. BOTH LUNGS ARE CLEAR TO AUSCULTATION. Cardio Palpation: normal PMI Rate: regular rate Rhythm: regular rhythm Heart sounds: no gallops and no murmurs Peripheral pulses: Peripheral pulses 2+ throughout GI Palpation (GI): Soft to palpation, nontender, No hepatosplenomegaly present, no masses and Other GI palpation findings present (ABDOMEN IS OBESE AND PROTUBERANT) Auscultation: normal bowel sounds Back/Spine/Pelvis Thoracic/Lumbar Spine: thoracic and lumbar spine normal to inspection Skin General skin exam: no rashes or lesions noted Neuro General: patient oriented x3 and no focal motor deficits Cranial nerves: Yes CN's II-XII intact bilaterally Extrem General: Yes normal to inspection, Yes no clubbing, cyanosis or edema and Yes no calf tenderness Psych Appearance: grossly normal and well kempt Speech and movement: Normal speech and movement present Results Reviewed Results Reviewed: COMPLIANCE REPORT REVIEWED. USED 29/30 NIGHTS, 97%. AVERAGE USE IT PER NIGHT 5 HOURS 11 MINUTES. PRESSURE USED MOSTLY 11-12 CM. NO AIR LEAK ISSUE. RESIDUAL AHI 1.3 Assessment & Plan Assessment & Plan (1) Morbid obesity: Comment: PATIENT REMAINS MORBIDLY OBESE. SHE HAS FALLEN OUT OF THE WEIGHT MANAGEMENT PROGRAM SHE COULD NOT UNDERGO SURGERY. NOW HER WEIGHT IS AT A STANDS STILL. SHE WAS HOPING TO LOSE SOME WEIGHT WITH THE HELP OF ANTI OBESITY MEDS. BUT AFTER JUST 1 INJECTION SHE DID NOT GO BACK SHE WAS TAKING CARE OF HER MOTHER. Code(s): E66.01 - Morbid (severe) obesity due to excess calories Category: Medical Plan: ADVISED TO FOLLOW DIET MORE STRICTLY ADVISED TO CONSIDER JOINING THE WEIGHT MANAGEMENT PROGRAM AGAIN (2) QUENTIN (obstructive sleep apnea): Comment: PATIENT IS A REGULAR USER OF CPAP EVERY NIGHT, WITH VERY GOOD COMPLIANCE. SHE SLEEPS GOOD AND BENEFITS FROM THE USE OF CPAP. SHE IS ON AUTO PAP MODE / USING NASAL MASK/ HAS NO CONCERNS WITH THE MASK OR CPAP DEVICE. Code(s): G47.33 - Obstructive sleep apnea (adult) (pediatric) Category: Medical Plan: COMMENDED FOR GOOD COMPLIANCE AND ENCOURAGED TO KEEP ON USING IT EVERY NIGHT. Coding Level of Care Code Est Pt Level 3 (47076) Diagnoses Morbid obesity E66.01 QUENTIN (obstructive sleep apnea) G47.33
[2024-06-30 10:05] VITALS: BP 120/80; PULSE 72; O2SAT 100; BMI 43.6
== END 2024-06-30 10:23 | disposition home or self-care (01) ==
PROVIDERS: PCP Internal Medicine; Visit Provider Internal Medicine
DX: E66.01 Morbid (severe) obesity due to excess calories (principal); G47.33 Obstructive sleep apnea (adult) (pediatric)
CPT/HCPCS: 99213

== ENCOUNTER → 2024-06-30 09:57 | Outpatient (BNVA) | payer OTHER, SELFPAY | PROVIDERS: PCP Internal Medicine; Visit Provider Internal Medicine | DX: G47.33 Obstructive sleep apnea (adult) (pediatric) (principal); E66.01 Morbid (severe) obesity due to excess calories; Z68.41 Body mass index [BMI] 40.0-44.9, adult; Z99.89 Dependence on other enabling machines and devices | CPT/HCPCS: 99212 ==

== ENCOUNTER 2024-12-29 10:02 | Outpatient (AMB) | payer OTHER, SELFPAY ==
[2024-12-29 10:08] VITALS: BP 120/70; PULSE 80; O2SAT 98; BMI 45.4
--- NOTE | 2024-12-29 10:08 | MHC.OFFVIS ---
Vital Signs 12/29/24 10:08 Height 5 ft 1 in Weight 240 lb 4.862 oz BMI 45.4 BP 120/70 Blood Pressure Location Lt brachial Position Sitting Pulse 80 Pulse Source Pulse Oximeter Pulse Oximetry (%) 98 Oxygen Delivery Method Room Air Intake Visit Reasons: Obstructive sleep apnea Intake Note: pt is here for follow up she states she threw out the water chamber by accident and has not been able to use her machine, her machine is greater than 5 years and would like a replacement if agreeable. Collection Clerk Required: No Allergies No Known Allergies [No Known Allergies*] Allergy (Unknown, Verified 12/29/24 10:42) Medication List - Last Reconciled 12/29/24 by Danyelle Santana MD amlodipine 5 mg PO DAILY aspirin 81 mg PO DAILY atorvastatin 80 mg PO BEDTIME ticagrelor (Brilinta) 90 mg PO BID valsartan 80 mg PO DAILY Do you need a note to return to daycare/school/sports/work: No HPI HPI Obstructive sleep apnea: Details: THIS 39 YEARS OLD FEMALE IS HERE FOR 6 MONTHS FOLLOW-UP FOR HER . QUENTIN AND CPAP USAGE SHE WAS USING HER CPAP VERY REGULARLY UP UNTIL ABOUT 4 WEEKS AGO, AND THEN. SHE THREW AWAY THE WATER CHAMBER BY MR. SHE HAS NOT BEEN USING THE CPAP SINCE THEN, AND IS HAVING DIFFICULTY IN SLEEPING AT NIGHT. SHE HAS A LONG HISTORY OF QUENTIN. AND SHE CAN NOT SLEEP WITHOUT THE USE OF CPAP THE WEIGHT HAS GRADUALLY GONE UP. [facility] Medical History Restrictive lung disease Fatty liver QUENTIN (obstructive sleep apnea) Morbid obesity Hypertension Surgical History Previous section Family History Mother Sleep apnea Diabetes Father Diabetes Dementia Brother No problems noted. Brother No problems noted. Brother No problems noted. Brother No problems noted. Brother No problems noted. Brother No problems noted. Sister Obesity Sister No problems noted. Son No problems noted. Son No problems noted. Daughter No problems noted. Other No family history of cerebrovascular accident (CVA) Social History Alcohol intake: former Patient Tobacco Use Status: Former Tobacco user Years Smoked: 2012 Substance Use Type: Marijuana service: No Current occupational status: employed Review of Systems Const All systems reviewed & are unremarkable except as noted in HPI and below Eyes Reports no additional complaints ENT Reports nasal congestion (Mild intermittent) Card Denies chest pain, Denies irregular heart rhythm, Denies leg edema, Denies lightheadedness and Reports dyspnea on exertion (Mild) Resp Denies cough, Reports dyspnea on exertion (Mild) and Denies wheezing GI Reports no additional complaints Reports no additional complaints Musc Reports no additional complaints Skin/Breast Reports system reviewed and no additional complaints, except as documented Neuro Reports no additional complaints (H/o recurrent strokes, recent workup at [facility] .) Psych Reports no additional complaints Endo Reports no additional complaints Franklin/Lymph Reports no additional complaints Aller/Immun Denies wheezing Physical Exam Vital Signs: Last Vital Signs Pulse 80 12/29/24 10:08 BP 120/70 12/29/24 10:08 Pulse Ox 98 12/29/24 10:08 Oxygen Delivery Method Room Air 12/29/24 10:08 BMI result Body Mass Index 45.4 Patient is grossly obese with a round face. NECK CIRCUMFERENCE 17 IN. MALLAMPATI SCALE 4. Const General: comfortable, no acute distress, alert and awake Orientation/consciousness: patient oriented x3 HEENT Head: Yes normal to inspection General nose exam: No nasal polyps present and No nasal discharge present Face and sinus: Yes sinuses nontender Mouth: oropharynx abnormals (NARROW AND CROWDED, MALLAMPATI SCALE 4) Throat: Yes posterior oropharynx normal Eyes General: appearance normal, both eyes and all related structures Neck Neck: Yes normal visual inspection, Yes no lymphadenopathy, Yes trachea midline, Yes no JVD and Yes other (NECK SIZE 17 IN) Thyroid: Thyroid normal Chest Chest palpation & inspection: normal inspection of the chest, normal palpation of entire chest wall and no tenderness Resp Other: PERCUSSION NOTE IS HARDLY PERCEPTIBLE BECAUSE OF THE THICK CHEST WALL. BREATH SOUNDS ARE DISTANT DUE TO OBESITY, AND ESPECIALLY DECREASED OVER THE BASILAR AREAS. BOTH LUNGS ARE CLEAR TO AUSCULTATION. Cardio Palpation: normal PMI Rate: regular rate Rhythm: regular rhythm Heart sounds: no gallops and no murmurs Peripheral pulses: Peripheral pulses 2+ throughout GI Palpation (GI): Soft to palpation, nontender, No hepatosplenomegaly present, no masses and Other GI palpation findings present (ABDOMEN IS OBESE AND PROTUBERANT) Auscultation: normal bowel sounds Back/Spine/Pelvis Thoracic/Lumbar Spine: thoracic and lumbar spine normal to inspection Skin General skin exam: no rashes or lesions noted Neuro General: patient oriented x3 and no focal motor deficits Cranial nerves: Yes CN's II-XII intact bilaterally Extrem General: Yes normal to inspection, Yes no clubbing, cyanosis or edema and Yes no calf tenderness Psych Appearance: grossly normal and well kempt Speech and movement: Normal speech and movement present Results Reviewed Results Reviewed: CPAP USAGE HAS BEEN GOOD AND REGULAR UP UNTIL DECEMBER 03, AFTER THAT SHE HAS NOT USED IT BECAUSE SHE LOST THE WATER CHAMBER. HER CPAP DEVICE IS MORE THAN 5 YEARS OLD. Assessment & Plan Assessment & Plan (1) Morbid obesity: Comment: PATIENT REMAINS MORBIDLY OBESE. SHE HAS FALLEN OUT OF THE WEIGHT MANAGEMENT PROGRAM SHE COULD NOT UNDERGO SURGERY. NOW HER WEIGHT IS GRADUALLY GOING UP. Code(s): E66.01 - Morbid (severe) obesity due to excess calories Category: Medical Plan: HAD A GOOD TALK WITH HER ABOUT WEIGHT. .DIET EXPLAINED SHE ALSO NEEDS TO START WALKING ON A DAILY BASIS. (2) Restrictive lung disease: Comment: MILD RESTRICTIVE PULMONARY DISORDER WHICH IS OBVIOUSLY SECONDARY TO HER MORBID OBESITY. SHE DOES NOT HAVE ANY SIGNIFICANT DEGREE OF OBSTRUCTIVE AIRWAY DISORDER. Code(s): J98.4 - Other disorders of lung Category: Medical Plan: WEIGHT REDUCTION EXPLAINED. SHOULD DO DEEP BREATHING EXERCISES 3 TIMES DAILY. (3) QUENTIN (obstructive sleep apnea): Comment: PATIENT IS A REGULAR USER OF CPAP EVERY NIGHT, WITH VERY GOOD COMPLIANCE., BUT HAS NOT USED IN THE LAST 4 WEEKS DUE TO DEFECTIVE DEVICE. SHE WAS SLEEPING GOOD AND BENEFITING FROM THE USE OF CPAP. SHE IS ON AUTO PAP MODE / USING NASAL MASK/ NEEDS A NEW CPAP DEVICE. Code(s): G47.33 - Obstructive sleep apnea (adult) (pediatric) Category: Medical Plan: ORDER FOR A NEW CPAP DEVICE IS SENT Coding Level of Care Code Est Pt Level 3 (02364) Diagnoses Morbid obesity E66.01 Restrictive lung disease J98.4 QUENTIN (obstructive sleep apnea) G47.33
--- OUTSIDE RECORDS SUMMARY | 2024-12-29 10:59 | XMS_ITS | Encounter Summary ---
Author Organization [facility] Address [address] [place] [address] Care Team Providers Care Coke Oven Mason Name Role Phone Kendall Cevallos Primary Care Provide r Encounter Details Date Type Department Care Team (Late Contact Info) Description 12/19/2024 Ohmxhart Message [facility] Neuro Interventional Radiology [address] [place], [place] [phone] Piyush Martinez MD [address] [place], [place] [phone] Medical note Social History Tobacco Use Types Packs/Day Years Used Date Smoking Tobacco: Former Cigarettes Smokeless Tobacco: Never Comments:Quit 10y ago. Smoke d 2 packs/week for 2-3y Alcohol Use Standard Drinks/Week Comments Not Currently 0 (1 standard drink = 0.6 oz pur e alcohol) Comments No Sex and Gender Information Value Date Recorded Sex Assigned at Female 07/28/2023 9:10 AM EST Legal Sex Female 12:17 PM EST Gender Identity Female 07/28/2023 9:10 AM EST Sexual Orientation Straight 07/28/2023 9: 10 AM EST documented as of this encounter Plan of Treatment Not on file documented as of this encounter Visit Diagnoses Not on filedocumented in this encounter Care Teams Coke Oven Mason Relationship Specialty Start Date End Date Kendall Cevallos [address] [place] [phone] PCP - General Internal Medicine 10/09/22 documented as of this encounter
--- OUTSIDE RECORDS SUMMARY | 2024-12-29 10:59 | XMS_ITS | Encounter Summary ---
Author Organization [facility] Address [address] [place] [address] Care Team Providers Care Documentation Lead Name Role Phone Kendall Cevallos Primary Care Provide r Encounter Details Date Type Department Care Team ([facility] Contact Info) Description 07/06/2023 Telephone [facility] Neuro Interventional Radiology [address] [place], [place] [phone] Piyush Martinez MD [address] [place], [place] [phone] Social History Tobacco Use Types Packs/Day Years [...] on filedocumented in this encounter Care Teams Documentation Lead Relationship Specialty Start Date End Date Kendall Cevallos [address] [place] [phone] PCP - General Internal Medicine 10/09/22 documented as of this encounter
--- OUTSIDE RECORDS SUMMARY | 2024-12-29 10:59 | XMS_ITS | Clinical Summary ---
Author Organization [facility] Address [address] [place] [address] Care Team Providers Care Enterprise Sales Person Name Role Phone Nina Cevalloslo Marta Mazariegos Primary Care Provide r Allergies No known active allergies Medications amLODIPine (NORVASC) 5 mg tablet Take 5 mg by mouth once a day. 2 Active aspirin chewable tablet 81 mg Chew and swallow 81 mg by mouth once a day. 3 Active atorvastatin (LIPITOR) 80 mg tablet Take 80 mg by mouth once a day. 3 Active cholecalciferol (VITAMIN D3) 2,000 unit capsule Take by mouth once a day. 3 Active cyanocobalamin 1,000 mcg tablet Take by mouth once a day. 3 Active valsartan (DIOVAN) 80 mg tablet Take 80 mg by mouth once a day. 3 Active levonorgestreL (MIRENA) 21 mcg/24 hours (8 yrs) 52 mg 5 year intrauterine device 1 each by intrauterine route. 9 Active ticagrelor (BRILINTA) 90 mg tablet Take 1 tablet (90 mg total) by mouth 2 times a day. 60 tablet 11 12/22/2022 3:31 PM EDT 3 Active Encounters Date Type Department Care Team Description 12/19/2024 myChart Message [facility] Neuro Interventional Radiology [address] [place] [address] [phone] Piyush Martinez MD Medical note from Last 3 Months Family History Medical History Relation Name Comments Heart disease Mother Relation Name Status Comments Mother Social History Tobacco Use Types Packs/Day Years [...] Orientation Straight 07/28/2023 9: 10 AM EST Last Filed Vital Signs Vital Sign Reading Time Taken Comments Blood Pressure 132/80 12/22/2022 4:00 PM EDT Pulse 102 12/22/2022 4:30 PM EDT Temperature 36.6 ??C (97.9 ??F) 12/22/2022 12:57 PM E DT Respiratory Rate 12 12/22/2022 4:30 PM EDT Oxygen Saturation 98% 12/22/2022 4:30 PM EDT Inhaled Oxygen Concentration - - Weight 101.6 kg (224 lb) 12/18/2022 7:48 AM EDT Height 151 cm (4' 11.45 ) 12/18/2022 7:48 AM EDT Body Mass Index 44.56 12/18/2022 7:48 AM EDT Plan of Treatment Health Maintenance Due Date Last Done Comments Cervical Cancer Screening 1984 HPV and Pap Smear 1984 Hepatitis C Screening 1984 Pap Smear 1984 Varicella Vaccines (1 of 2 - 13+ 2-dose series) 1997 COVID-19 Vaccine ( season) 2024 Alcohol/Substance Use Screening 08/17/2024 Depression Screening and Follow-Up 08/17/2024 Social Drivers of Health Annual Screening 08/17/2024 Mammogram 2024 Influenza Vaccine (Season Ended) 2025 DTaP,Tdap,and Td Vaccines (8 - Td or Tdap) 05/07/2028 05/07/2018, 08/15/2016, 05/16/1999, Additional history exists RSV Vaccine (60+ years old and patients) (1 - 1-dose 75+ series) 2059 Hepatitis B Vaccines Completed 01/24/2004, 09/08/2001, 05/16/1999 HIV Screening Completed 10/30/2022 Pneumococcal Vaccine: Pediatric (0-5 Years) and At-Risk Patients (6-50 Years) Aged Out No longer eligible based on patient's age to complete this topic Medical Devices Implanted Type Area Education Administrator Device Identifier Shelf Expiration Date Model / Serial / Lot Device Closure Vascular 5fr Vascade - [id number] Implanted:Qty: 1 on 12/02/2022 at [facility] Implant [employer] [id number] X- [id number] / / Device Closure Vascular 5fr Vascade - [id number] Implanted:Qty: 1 on 12/22/2022 at [facility] Implant [employer] [id number] X- [id number] / / [place] [address] [place] [address] MEDICAID Care Teams Enterprise Sales Person Relationship Specialty Start Date End Date Kendall Cevallos [address] [place] [phone] PCP - General Internal Medicine 10/09/22
--- OUTSIDE RECORDS SUMMARY | 2024-12-29 10:59 | XMS_ITS | Encounter Summary ---
Author Organization [facility] Address [address] [place] [address] Care Team Providers Care Microwave Remote Sensing Scientist Name Role Phone Kendall Cevallos Primary Care Provide r Encounter Details Date Type Department Care Team ([facility] Contact Info) Description 11/04/2022 Orders Only [facility] Interventional Radiology [address] [place] [phone] Colleen Salcedo LPN Social History Tobacco Use Types Packs/Day Years Used Date Smoking Tobacco: Former Cigarettes Smokeless Tobacco: Never Alcohol Use Standard Drinks/Week Comments Not Asked 0 (1 standard drink = 0.6 oz pur e alcohol) occassionally Comments Unknown Sex and Gender Information Value Date Recorded Sex Assigned at Female 07/28/2023 9:10 AM EST Legal Sex Female 12:17 PM EST Gender Identity Female 07/28/2023 9:10 AM EST Sexual Orientation Straight 07/28/2023 9: 10 AM EST documented as of this encounter Plan of Treatment Not on file documented as of this encounter Visit Diagnoses Not on filedocumented in this encounter Care Teams Microwave Remote Sensing Scientist Relationship Specialty Start Date End Date Kendall Cevallos [address] [place] [phone] PCP - General Internal Medicine 10/09/22 documented as of this encounter
--- OUTSIDE RECORDS SUMMARY | 2024-12-29 10:59 | XMS_ITS | Clinical Summary ---
Author Organization [facility] [address] [place] [address] [place] [phone] Phone Care Team Providers Care Supervising Nurse Name Role Phone Marta Lagos MD Primary Care Prov ider Allergies No known active allergies Medications ergocalciferol (VITAMIN D-2) 1,250 mcg (50,000 unit) capsule Take 1 Capsule by mouth once a week. 05/02/2024 Active amLODIPine (NORVASC) 5 mg tablet Take 1 tablet (5 mg total) by mouth 1 (one) time each day. 90 each 3 11/28/2024 6 Active aspirin 81 mg chewable tablet Chew 1 tablet (81 mg total) 1 (one) time each day. 90 each 11/28/2024 6 Active atorvastatin (LIPITOR) 80 mg tablet Take 1 tablet (80 mg total) by mouth 1 (one) time each day. 90 each 11/28/2024 6 Active ticagrelor (Brilinta) 90 mg tablet Take 1 tablet (90 mg total) by mouth 2 (two) times a day. 180 tablet 3 11/28/2024 Active valsartan (DIOVAN) 80 mg tablet Take 1 tablet (80 mg total) by mouth 1 (one) time each day. 90 each 3 11/28/2024 6 Active Active Problems Problem Noted Date Diagnosed Date Cerebrovascular accident (CVA) (CMS/HCC V24, CMS /HCC V28) 05/19/2022 Overview (06/30/2024): MIGUEL weakness Assessment & Plan (11/28/2024 10:05 AM EDT): History of a CVA, due to elevated blood pressure and atherosclerosis. She follows with neurology. Currently Brilinta and atorvastatin. We will continue same regimen. Orders: Comprehensive metabolic panel; Future Lipid panel with reflex to direct LDL; Future Hypertension 07/27/2018 Assessment & Plan (11/28/2024 10:05 AM EDT): HTN is well controlled, patient compliant with her medications, today 130/80. Continue amlodipine 5 mg a day, valsartan 80 mg a day. Instructed to follow a low-salt diet and exercise regularly. Will recheck a CMP and Lipid panel. Orders: Comprehensive metabolic panel; Future Lipid panel with reflex to direct LDL; Future QUENTIN (obstructive sleep apnea) 07/16/2018 Overview (06/30/2024): S/p sleep study 06/2018 Last Assessment & Plan: Given that the last sleep study only showed mild sleep apnea and given her current symptoms I do think is appropriate to order a new sleep study. After the sleep study I will decide therapy either with CPAP or referral to sleep center. Patient agrees with the plan. I will see her back after the sleep study. Appointment has been given in 3 months with me. Encounters Date Type Department Care Team Description 11/28/2024 9:30 AM EDT Office Visit Adult Medicine [address] [phone] Marta Ramirez MD Primary hypertension (Primary Dx); Hypercholesterolemia; Cerebrovascular accident (CVA), unspecified mechanism (CMS/HCC V24, CMS/[facility] V28); Class 3 severe obesity due to excess calories with serious comorbidity and body mass index (BMI) of 45.0 to 49.9 in adult (CMS/HCC V24, CMS/[facility] V28); Rosacea; Vitamin D deficiency; Breast cancer screening by mammogram from Last 3 Months Immunizations Name Administration Dates Next Due Tdap Tetanus diptheria acell ular pertussis (Boostrix; Adacel) 7yo and older 05/07/2018,08/15/2016 Surgical History Surgery Date Site/Laterality Comments SECTION PROCEDURE: HISTORICAL DELIVERY Medical History Medical History Date Comments Preeclampsia DX:Preeclampsia QUENTIN (obstructive sleep apnea) 07/16/2018 DX :QUENTIN (obstructive sleep apnea); COMMENT: S/p sleep study 06/2018 Hypertension 07/27/2018 DX:Hypertension Family History Medical History Relation Name Comments Diabetes Father colon polyps Diabetes Mother Breast cancer Neg Hx Colon cancer Neg Hx Ovarian cancer Neg Hx Prostate cancer Neg Hx Relation Name Status Comments Father Mother Social History Tobacco Use Types Packs/Day Years Used Date Smoking Tobacco: Never Cigarettes Qu it: 08/15/2012 Smokeless Tobacco: Never Alcohol Use Standard Drinks/Week Comments No 0 (1 standard drink = 0.6 oz pur e alcohol) Comments Unknown Sex and Gender Information Value Date Recorded Sex Assigned at Not on file Legal Sex Female 6:16 AM EST Gender Identity Not on file Sexual Orientation Not on file Obstetrics History Last Filed Vital Signs Vital Sign Reading Time Taken Comments Blood Pressure 130/80 11/28/2024 9:55 AM EDT Pulse 88 11/28/2024 9:36 AM EDT Temperature 36 ??C (96.8 ??F) 11/28/2024 9:36 AM EDT Respiratory Rate 18 11/28/2024 9:36 AM EDT Oxygen Saturation - - Inhaled Oxygen Concentration - - Weight 109 kg (240 lb) 11/28/2024 9:36 AM EDT Height 149.9 cm (4' 11 ) 11/28/2024 9:36 AM EDT Body Mass Index 48.47 11/28/2024 9:36 AM EDT Plan of Treatment Upcoming Encounters Date Type Department Care Team (Late st Contact Info) Description 05/31/2025 8:30 AM EDT Office Visit Adult Medicine [address] [phone] Marta aLgos MD [address] [place] [phone] Health Maintenance Due Date Last Done Comments Breast Cancer Screening 1984 Hepatitis B Vaccines (1 of 3 - 19+ 3-dose series) 2003 Depression Screening 07/26/2022 Social Influencers of Health Screening 07/26/2022 COVID-19 Vaccine (1 - 2023-2 5 season) 2024 Hypertension/CHF/CAD Annual BMP Blood Test 07/17/2024 07/17/2023 Influenza Vaccine (Season Ended) 2025 Cervical Cancer Screening: HPV 10/31/2027 10/30/2022 DTaP,Tdap,and Td Vaccines (3 - Td or Tdap) 05/07/2028 05/07/2018, 08/15/2016 Cholesterol Screening (Lipid Panel) 07/17/2028 07/17/2023 HIV Screening Completed 12/24/2017 Hepatitis C Screening Completed 10/30/2022 HIB Vaccines Aged Out No longer eligi ble based on patient's age to complete this topic HPV Vaccines Aged Out No longer eligi ble based on patient's age to complete this topic Hepatitis A Vaccines Aged Out No long er eligible based on patient's age to complete this topic IPV Vaccines Aged Out No longer eligi ble based on patient's age to complete this topic MMR Vaccines Aged Out No longer eligi ble based on patient's age to complete this topic Meningococcal ACWY Vaccine Aged Out N o longer eligible based on patient's age to complete this topic Meningococcal B Vaccine Aged Out No l onger eligible based on patient's age to complete this topic Pneumococcal Vaccine: Pediatrics (0 to 5 Years) and At-Risk Patients (6 to 64 Years) Aged Out No longer eligible b ased on patient's age to complete this topic RSV Immunization Patients Under 20 months Aged Out No longer eligible b ased on patient's age to complete this topic Varicella Vaccines Aged Out No longer eligible based on patient's age to complete this topic Procedures Procedure Name Priority Date/Time Associated Diagnosis Comments ANNUAL BMP BLOOD TEST Routine 07/17/2023 LIPID PANEL Routine 07/17/2023 HPV Routine 10/30/2022 HEPATITIS C SCREENING Routine 10/30/2022 HIV SCREENING Routine 12/24/2017 from Last 3 Months or Most Recently Relevant to Health Maintenance Results * Annual BMP Blood Test (07/17/2023) [facility] Annual BMP Blood Test abstracted [facility] Provider HEALTH MAINTENANCE Final Result * Lipid panel (07/17/2023) [facility] LDL/HDL Ratio 3 0 - 4 Triglycerides 98 0 - 150 mg/dL Cholesterol 113 0 - 200 mg/dL HDL 40 >=40 mg/dL LDL Cholesterol 54 0 - 100 mg/dL Blood Venous blood specimen / Unknown Result [facility] Provider LAB BLOOD ORDERABLES Uma l Result * Cervical Cancer Screening: HPV (10/30/2022) [facility] Cervical Cancer Screening: HPV abstracted, negative [facility] Provider HEALTH MAINTENANCE Final Result * Hepatitis C Screening (10/30/2022) [facility] Hepatitis C Screening abstracted [facility] Provider HEALTH MAINTENANCE Final Result * HIV Screening (12/24/2017) [facility] HIV Screening abstracted [facility] Provider HEALTH MAINTENANCE Final Result from Last 3 Months or Most Recently Relevant to Health Maintenance Insurance [employer] Care Teams Supervising Nurse Relationship Specialty Start Date End Date Marta Lagos MD [address] [place] [phone] PCP - General Internal Medicine 03/18/22
--- OUTSIDE RECORDS SUMMARY | 2024-12-29 10:59 | XMS_ITS | Encounter Summary ---
Author Organization [facility] Address [address] [place] [address] Care Team Providers Care Product Marketing Intern Name Role Phone Kendall Cevallos Primary Care Provide r Encounter Details Date Type Department Care Team ([facility] Contact Info) Description 12/22/2022 Telephone [facility] Neuro Interventional Radiology [address] [place], [place] [phone] Dejan Benavides PA [address] [place], [place] [phone] Social History Tobacco Use Types Packs/Day Years [...] AM EST documented as of this encounter Miscellaneous Notes * Telephone Encounter - ISABELA Neal - 12/22/2022 1:08 PM EDT documented in this encounter Plan of Treatment Not on file documented as of this encounter Visit Diagnoses Not on filedocumented in this encounter Care Teams Product Marketing Intern Relationship Specialty Start Date End Date Kendall Cevallos [address] [place] [phone] PCP - General Internal Medicine 10/09/22 documented as of this encounter
--- OUTSIDE RECORDS SUMMARY | 2024-12-29 10:59 | XMS_ITS | Encounter Summary ---
Author Organization [facility] Address [address] [place] [address] Care Team Providers Care Grey Roll Worker Name Role Phone Kendall Cevallos Primary Care Provide r Encounter Details Date Type Department Care Team (Late st Contact Info) Description 07/02/2023 Orders Only [facility] Interventional Radiology [address] [place] [address] Ishaan Solano, [address] [place] [address] Social History Tobacco Use Types Packs/Day Years [...] on filedocumented in this encounter Care Teams Grey Roll Worker Relationship Specialty Start Date End Date Kendall Cevallos [address] [place] [phone] PCP - General Internal Medicine 10/09/22 documented as of this encounter
--- OUTSIDE RECORDS SUMMARY | 2024-12-29 10:59 | XMS_ITS | Encounter Summary ---
Author Organization [facility] Address [address] [place] [address] Care Team Providers Care Director Of User Experience Name Role Phone Kendall Cevallos Primary Care Provide r Reason for Referral * MRI/CAT/PET Scan (Routine) - Closed Specialty Diagnoses / Procedures Referred By Pam foster Referred To Contact Radiology Diagnoses Stenosis of intracranial vessel Procedures CT Angiogram Head & Neck with Contrast Daniella Lunsford NP [address] [place] [address] Phone: tel: fax: [facility] Interventional Radiology [address] [place] [address] Phone: tel: Referral ID Status Reason Start Date Expiration Date Visits Re quested Visits Authorized [id number] Closed 07/06/2023 01/02/2024 1 1 Encounter Details Date Type Department Care Team (Late Contact Info) Description 07/02/2023 Orders Only [facility] Neuro Interventional Radiology [address] [place] [address] Daniella Lunsford NP [address], [place] [id number] Stenosis of intracranial vessel (Primary Dx) Social History Tobacco Use Types Packs/Day Years [...] on file documented as of this encounter Results * Due to [place] state law, this organization might not be sharing negative HIV tests. * CT Angiogram Head & Neck with Contrast (07/28/2023 11:26 AM EST) Anatomical Region Laterality Modality Head and Neck Computed Tomogra phy 07/28/2023 12:2 6 PM EST Impressions 07/30/2023 10: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 ?? 2. Otherwise normal CT study of the head. ??No intracranial mass effect, hemorrhage or hydrocephalus. ?? 3. HEAD CTA demonstrates a relatively short, 5 mm segment of moderately severe (approximately 70%) stenosis of the left supraclinoid ICA. ??The stenosis may reflect chronic sequela of intracranial ICA dissection. ??There is an infundibular origin of small left P-comm. ?? 4. No other hemodynamically significant stenosis, aneurysm, dissection, or arteriovenous fistula/malformation of the intracranial anterior or posterior circulation is seen. ??Normal intracranial vertebrobasilar system.. 5. Extracranial CTA demonstrates no hemodynamically limiting stenosis, occlusive disease or dissection of the major extracranial arteries. ?? If this radiology report contains a blank impression section, it is an incomplete radiology report. ??Please contact the interpreting radiologist or applicable radiology division as soon as possible to obtain the completed interpretation. ? Workstation ID: [id number] Up-to-date CT equipment and radiation dose reduction techniques were employed. CTDIvol: 2.9 - 44.4 mGy. DLP: 1276 mGy-cm.The following accession numbers are related to this dose report [id number] Up-to-date CT equipment and radiation dose reduction techniques were employed. CTDIvol: 2.9 - 44.4 mGy. DLP: 1276 mGy-cm.The following accession numbers are related to this dose report [id number] [facility] 07/30/2023 10:30 AM EST EXAMINATION: CT of head without contrast CTA of head and neck with contrast TECHNIQUE: CT of head without contrast administration. ??Multiplanar reformats created. CT angiogram of head and neck following intravenous administration of standard dose of Omnipaque. 3-D maximum intensity projection and volume rendered images were created. Degree of stenosis estimated using NASCET criteria. Carotid stenosis Reference: Mild = <50% stenosis. Moderate = 50-69% stenosis. Severe = 70-89% stenosis. Hairline/critical = 90-99% stenosis. Occluded = 100% stenosis. CLINICAL INFORMATION: 37-year-old female with left supraclinoid ICA stenosis. ??Stroke/TIA, determine embolic source I66.9 - I10 - Occlusion and stenosis of unspecified cerebral artery COMPARISON: Diagnostic [facility] Neuroangiography studies of 12/22 and 12/02/2022; outside brain MRI [address] 08/17/2022.. FINDINGS: ?? 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 ??No intracranial hemorrhage, acute infarct, or mass effect. Chavez-white matter differentiation is otherwise preserved. The configuration of the visualized posterior fossa structures is within normal limits. Ventricles and extra-axial spaces are normal. ??No hydrocephalus. ??Visualized portions of the orbits, maxine mastoids, skull base and craniocervical junction are normal. ??No fluid levels or post obstructive changes of the paranasal sinuses or mastoids.. HEAD CTA The anterior circulation demonstrates relatively short, 5 mm segment of moderately severe (approximately 70%) stenosis of the left supraclinoid ICA. ??The stenosis may reflect chronic sequela of intracranial ICA dissection. ??There is an infundibular origin of small left P-comm. ??No other hemodynamically significant stenosis, aneurysm, dissection, or arteriovenous fistula/malformation of the anterior circulation is seen. The posterior circulation demonstrates no hemodynamically significant stenosis, aneurysm, dissection, or arteriovenous fistula/malformation. ??No abnormality of the intracranial vertebrobasilar system is seen The visualized dural venous sinuses appear grossly unremarkable. NECK CTA The right common carotid artery, common carotid bifurcation, and cervical internal carotid artery demonstrate no hemodynamically significant stenosis, aneurysm or dissection. The left common carotid artery, common carotid bifurcation, and cervical internal carotid artery demonstrate no hemodynamically significant stenosis, aneurysm or dissection. Both cervical vertebral arteries demonstrate no hemodynamically significant stenosis, aneurysm or dissection. The visualized aortic arch, brachiocephalic artery, right subclavian artery, and left subclavian artery are unremarkable. NON VASCULAR FINDINGS: The included soft tissues of the neck appear normal. ??Lung apices appear unremarkable. Resulting Agency Comment [id number] Procedure Note Royer Linda MD - 07/30/2023 EXAMINATION: CT of head without contrast CTA of head and neck with contrast TECHNIQUE: CT of head without contrast administration. Multiplanar reformatscreated. CT angiogram of head and neck following intravenous administration ofstandard dose of Omnipaque. 3-D maximum intensity projection and volumerendered images were created. Degree of stenosis estimated using NASCET criteria. Carotid stenosis Reference: Mild = <50% stenosis. Moderate = 50-69% stenosis. Severe = 70-89% stenosis. Hairline/critical = 90-99% stenosis. Occluded = 100% stenosis. CLINICAL INFORMATION: 37-year-old female with left supraclinoid ICAstenosis. Stroke/TIA, determine embolic source I66.9 - I10 - Occlusionand stenosis of unspecified cerebral artery COMPARISON: Diagnostic [facility] Neuroangiography studies of 12/22 and 12/02/2022;outside brain MRI [address] 08/17/2022.. FINDINGS: HEAD CT: There are subtle foci of juxtacortical tissue loss at the left superiorfrontal precentral parasagittal convexity likely representing chronicmicroischemic/microembolic sequela in the region of the left MCA- ACAwatershed. No intracranial hemorrhage, acute infarct, or mass effect.Chavez-white matter differentiation is otherwise preserved. Theconfiguration of the visualized posterior fossa structures is withinnormal limits. Ventricles and extra-axial spaces are normal. No hydrocephalus.Visualized portions of the orbits, maxine mastoids, skull base andcraniocervical junction are normal. No fluid levels or post obstructivechanges of the paranasal sinuses or mastoids.. HEAD CTA The anterior circulation demonstrates relatively short, 5 mm segment ofmoderately severe (approximately 70%) stenosis of the left supraclinoidICA. The stenosis may reflect chronic sequela of intracranial ICAdissection. There is an infundibular origin of small left P-comm. Noother hemodynamically significant stenosis, aneurysm, dissection, orarteriovenous fistula/malformation of the anterior circulation is seen. The posterior circulation demonstrates no hemodynamically significantstenosis, aneurysm, dissection, or arteriovenous fistula/malformation. Noabnormality of the intracranial vertebrobasilar system is seen The visualized dural venous sinuses appear grossly unremarkable. NECK CTA The right common carotid artery, common carotid bifurcation, and cervicalinternal carotid artery demonstrate no hemodynamically significantstenosis, aneurysm or dissection. The left common carotid artery, common carotid bifurcation, and cervicalinternal carotid artery demonstrate no hemodynamically significantstenosis, aneurysm or dissection. Both cervical vertebral arteries demonstrate no hemodynamicallysignificant stenosis, aneurysm or dissection. The visualized aortic arch, brachiocephalic artery, right subclavianartery, and left subclavian artery are unremarkable. NON VASCULAR FINDINGS: The included soft tissues of the neck appearnormal. Lung apices appear unremarkable. IMPRESSION: 1. CT head demonstrates subtle foci of juxtacortical tissue loss at theleft superior frontal precentral parasagittal convexity likelyrepresenting chronic microischemic/microembolic sequela in the region ofthe left MCA-WHITLEY watershed. 2. Otherwise normal CT study of the head. No intracranial mass effect,hemorrhage or hydrocephalus. 3. HEAD CTA demonstrates a relatively short, 5 mm segment of moderatelysevere (approximately 70%) stenosis of the left supraclinoid ICA. Thestenosis may reflect chronic sequela of intracranial ICA dissection.There is an infundibular origin of small left P-comm. 4. No other hemodynamically significant stenosis, aneurysm, dissection, orarteriovenous fistula/malformation of the intracranial anterior orposterior circulation is seen. Normal intracranial vertebrobasilarsystem.. 5. Extracranial CTA demonstrates no hemodynamically limiting stenosis,occlusive disease or dissection of the major extracranial arteries. If this radiology report contains a blank impression section, it is anincomplete radiology report. Please contact the interpreting radiologistor applicable radiology division as soon as possible to obtain thecompleted interpretation. Workstation ID: [id number] Up-to-date CT equipment and radiation dose reduction techniques wereemployed. CTDIvol: 2.9 - 44.4 mGy. DLP: 1276 mGy-cm.The followingaccession numbers are related to this dose report [id number] Up-to-date CT equipment and radiation dose reduction techniques wereemployed. CTDIvol: 2.9 - 44.4 mGy. DLP: 1276 mGy-cm.The followingaccession numbers are related to this dose report [id number] Daniella Lunsford NP IMG CT PROCEDURES Uma l Result documented in this encounter Visit Diagnoses Diagnosis Stenosis of intracranial vessel- Primary Stenosis of intracranial vessel documented in this encounter Care Teams Director Of User Experience Relationship Specialty Start Date End Date Kendall Cevallos [address] [place] [id number] PCP - General Internal Medicine 10/09/22 documented as of this encounter
--- OUTSIDE RECORDS SUMMARY | 2024-12-29 10:59 | XMS_ITS | Referral Summary ---
Author Organization [facility] Address [address] [place] [address] Care Team Providers Care Revenue Research Analyst Name Role Phone Cevallos, Kendall Henriqueza Delilah Primary Care Provide r Encounters Date Type Department Care Team Description 12/19/2024 Loccit (ML4D)hart Message [facility] Neuro Interventional Radiology [address] [place] [address] Piyush Martinez MD Medical note from Last 3 Months Allergies No known active allergies Medications amLODIPine [...] 11 12/22/2022 3:31 PM EDT 3 Active Social History Tobacco Use Types Packs/Day Years [...] 12/18/2022 7:48 AM EDT Plan of Treatment Not on file Medical Devices Implanted Type Area First Leveler Device Identifier Shelf Expiration Date Model / Serial / Lot Device Closure Vascular 5fr Vascade - [id number] Implanted:Qty: 1 on 12/02/2022 at [facility] Implant [employer] K[employer] [id number] X- [id number] / / Device Closure Vascular 5fr Vascade - [id number] Implanted:Qty: 1 on 12/22/2022 at [facility] Implant [employer] K[employer] [id number] X- [id number] / / Insurance [employer] Care Teams Revenue Research Analyst Relationship Specialty Start Date End Date Kendall Cevallos [address] [place] [id number] PCP - General Internal Medicine 10/09/22
== END 2024-12-29 10:52 | disposition home or self-care (01) ==
LOC: HO.HPS 10:03
PROVIDERS: PCP Internal Medicine; Visit Provider Internal Medicine
DX: E66.01 Morbid (severe) obesity due to excess calories (principal); J98.4 Other disorders of lung; G47.33 Obstructive sleep apnea (adult) (pediatric)
CPT/HCPCS: 99213

== ENCOUNTER → 2024-12-29 10:02 | Outpatient (BNVA) | payer OTHER, SELFPAY | PROVIDERS: PCP Internal Medicine; Visit Provider Internal Medicine | DX: G47.33 Obstructive sleep apnea (adult) (pediatric) (principal); J98.4 Other disorders of lung; E66.01 Morbid (severe) obesity due to excess calories; Z68.42 Body mass index [BMI] 45.0-49.9, adult | CPT/HCPCS: 99212 ==

== ENCOUNTER 2025-05-04 10:29 | Outpatient (AMB) | payer OTHER, SELFPAY ==
[2025-05-04 10:41] VITALS: BP 122/78; PULSE 75; O2SAT 99; BMI 46.6
--- NOTE | 2025-05-04 10:41 | MHC.OFFVIS ---
Vital Signs 05/04/25 10:41 Height 5 ft 1 in Weight 246 lb 14.684 oz BMI 46.6 BP 122/78 Blood Pressure Location Lt brachial Position Sitting Pulse 75 Pulse Source Pulse Oximeter Pulse Oximetry (%) 99 Oxygen Delivery Method Room Air Intake Visit Reasons: Obstructive sleep apnea Intake Note: pt is here for follow up and states she is using cpap but is dealing with a stuffy nose right now and that interferes with usage. Faculty Criminal Justice Required: No Allergies No Known Allergies (No Known Allergies*) Allergy (Unknown, Verified 05/04/25 11:07) Medication List - Last Reconciled 05/04/25 by Danyelle Santana MD amlodipine 5 mg PO DAILY aspirin 81 mg PO DAILY atorvastatin 80 mg PO BEDTIME ticagrelor (Brilinta) 90 mg PO BID valsartan 80 mg PO DAILY Do you need a note to return to daycare/school/sports/work: No HPI HPI Obstructive sleep apnea: Details: 39 years old female with morbid obesity and obstructive sleep apnea, . Comes for follow-up after 4 months She has been using the CPAP fairly regularly, missed only a few nights during the month. And now for the past few days she has nasal congestion has difficulty in using the mask. Overall she is definitely benefiting from the use of CPAP, and sleeps at least for 5-6 hours per night. Her weight has not come down, she is not in any active weight reduction program. [facility] Medical History (Updated 05/04/25 @ 11:14 by Danyelle Santana MD) Allergic rhinitis Restrictive lung disease Fatty liver QUENTIN (obstructive sleep apnea) Morbid obesity Hypertension Surgical History Previous section Family History Mother Sleep apnea Diabetes Father Diabetes Dementia Brother No problems noted. Brother No problems noted. Brother No problems noted. Brother No problems noted. Brother No problems noted. Brother No problems noted. Sister Obesity Sister No problems noted. Son No problems noted. Son No problems noted. Daughter No problems noted. Other No family history of cerebrovascular accident (CVA) Social History Alcohol intake: former Patient Tobacco Use Status: Former Tobacco user Years Smoked: 2012 Substance Use Type: Marijuana service: No Current occupational status: employed Review of Systems Const All systems reviewed & are unremarkable except as noted in HPI and below Eyes Reports no additional complaints ENT Reports nasal congestion (Mild intermittent) Card Denies chest pain, Denies irregular heart rhythm, Denies leg edema, Denies lightheadedness and Reports dyspnea on exertion (Mild) Resp Denies cough, Reports dyspnea on exertion (Mild) and Denies wheezing GI Reports no additional complaints Reports no additional complaints Musc Reports no additional complaints Skin/Breast Reports system reviewed and no additional complaints, except as documented Neuro Reports no additional complaints (H/o recurrent strokes, recent workup at [facility] .) Psych Reports no additional complaints Endo Reports no additional complaints Franklin/Lymph Reports no additional complaints Aller/Immun Denies wheezing Physical Exam Vital Signs: Last Vital Signs Pulse 75 05/04/25 10:41 BP 122/78 05/04/25 10:41 Pulse Ox 99 05/04/25 10:41 Oxygen Delivery Method Room Air 05/04/25 10:41 BMI result Body Mass Index 46.6 Patient is grossly obese with a round face. NECK CIRCUMFERENCE 17 IN. MALLAMPATI SCALE 4. Const General: comfortable, no acute distress, alert and awake Orientation/consciousness: patient oriented x3 HEENT Head: Yes normal to inspection General nose exam: No nasal polyps present, No nasal discharge present and Other nasal findings present (There is moderate degree of bilateral nasal congestion) Face and sinus: Yes sinuses nontender Mouth: oropharynx abnormals (NARROW AND CROWDED, MALLAMPATI SCALE 4) Throat: Yes posterior oropharynx normal Eyes General: appearance normal, both eyes and all related structures Neck Neck: Yes normal visual inspection, Yes no lymphadenopathy, Yes trachea midline, Yes no JVD and Yes other (NECK SIZE 17 IN) Thyroid: Thyroid normal Chest Chest palpation & inspection: normal inspection of the chest, normal palpation of entire chest wall and no tenderness Resp Other: PERCUSSION NOTE IS HARDLY PERCEPTIBLE BECAUSE OF THE THICK CHEST WALL. BREATH SOUNDS ARE DISTANT DUE TO OBESITY, AND ESPECIALLY DECREASED OVER THE BASILAR AREAS. BOTH LUNGS ARE CLEAR TO AUSCULTATION. Cardio Palpation: normal PMI Rate: regular rate Rhythm: regular rhythm Heart sounds: no gallops and no murmurs Peripheral pulses: Peripheral pulses 2+ throughout GI Palpation (GI): Soft to palpation, nontender, No hepatosplenomegaly present, no masses and Other GI palpation findings present (ABDOMEN IS OBESE AND PROTUBERANT) Auscultation: normal bowel sounds Back/Spine/Pelvis Thoracic/Lumbar Spine: thoracic and lumbar spine normal to inspection Skin General skin exam: no rashes or lesions noted Neuro General: patient oriented x3 and no focal motor deficits Cranial nerves: Yes CN's II-XII intact bilaterally Extrem General: Yes normal to inspection, Yes no clubbing, cyanosis or edema and Yes no calf tenderness Psych Appearance: grossly normal and well kempt Speech and movement: Normal speech and movement present Results Reviewed Results Reviewed: Compliance report for the last 30 nights is reviewed. She has used 28/30 nights, 93%. Average use it per night 5 hours 44 minutes. No significant degree of air leak. Residual AHI 1.3 showing good effectiveness of the use of CPAP. Assessment & Plan Assessment & Plan (1) Morbid obesity: Comment: PATIENT REMAINS MORBIDLY OBESE. SHE HAS FALLEN OUT OF THE WEIGHT MANAGEMENT PROGRAM SHE COULD NOT UNDERGO SURGERY. NOW HER WEIGHT IS GRADUALLY GOING UP. Code(s): E66.01 - Morbid (severe) obesity due to excess calories Category: Medical Plan: Talked about diet. and exercise She actually needs to see a dietitian, and watch her diet. Start doing some exercise such as walking up to 2 miles every day. (2) Restrictive lung disease: Comment: MILD RESTRICTIVE PULMONARY DISORDER WHICH IS OBVIOUSLY SECONDARY TO HER MORBID OBESITY. SHE DOES NOT HAVE ANY SIGNIFICANT DEGREE OF OBSTRUCTIVE AIRWAY DISORDER. Code(s): J98.4 - Other disorders of lung Category: Medical Plan: Weight reduction and breathing exercises would be helpful (3) QUENTIN (obstructive sleep apnea): Comment: PATIENT IS A REGULAR USER OF CPAP EVERY NIGHT, WITH VERY GOOD COMPLIANCE., BUT on some nights has hard time to use the mask due to nasal congestion. Code(s): G47.33 - Obstructive sleep apnea (adult) (pediatric) Category: Medical Plan: Ipratropium bromide nasal spray prescribed. Use 2 squirts in each nostril before putting on the CPAP mask (4) Allergic rhinitis: Comment: She complains of frequent bouts of nasal congestion, it seems to be due to allergic/vasomotor rhinitis. Code(s): J30.9 - Allergic rhinitis, unspecified Category: Medical Plan: Ipratropium bromide nasal spray as noted above Medications: New ipratropium bromide administer into each nostril 2 sprays in each nostril before putting on the mask 2 sprays intranasal TID-QID PRN 15 mL 4RF nasal congestion 30 days Coding Level of Care Code Est Pt Level 3 (16901) Diagnoses Morbid obesity E66.01 Restrictive lung disease J98.4 QUENTIN (obstructive sleep apnea) G47.33 Allergic rhinitis J30.9
--- OUTSIDE RECORDS SUMMARY | 2025-05-04 12:28 | XMS_ITS | Encounter Summary ---
Author Organization [facility] Address [address] [place] [address] Care Team Providers Care Administrative Hearing Officer Name Role Phone Kendall Cevallos Primary Care Provide r Reason for Referral * MRI/CAT/PET Scan (Routine) - Closed Specialty Diagnoses / Procedures Referred By Pam foster Referred To Contact Radiology Diagnoses Stenosis of intracranial vessel Procedures CT Angiogram Head & Neck with Contrast Daniella Lunsford NP Phone: tel: fax: [facility] Interventional Radiology [address] [place] [address] Phone: tel: Referral ID Status Reason Start Date Expiration Date Visits Re quested Visits Authorized [id number] Closed 07/06/2023 01/02/2024 1 1 Encounter Details Date Type Department Care Team ([facility] Contact Info) Description 07/02/2023 Orders Only [facility] Neuro Interventional Radiology [address] [place] [address] Daniella Lunsford NP [address] [place], [place] [phone] Stenosis of intracranial vessel (Primary Dx) Social [...] of this encounter Results * Due to [place] state law, this organization might not be [...] the region of the left MCA-WHITLEY watershed. 2. Otherwise normal CT study of the head. No intracranial mass effect, hemorrhage or hydrocephalus. 3. HEAD CTA demonstrates a relatively short, 5 mm segment of moderately severe (approximately 70%) stenosis of the left supraclinoid ICA. The stenosis may reflect chronic sequela of intracranial ICA dissection. There is an infundibular origin of small left P-comm. 4. No other hemodynamically significant stenosis, aneurysm, dissection, or arteriovenous fistula/malformation of the intracranial anterior or posterior circulation is seen. Normal intracranial vertebrobasilar system.. 5. Extracranial CTA demonstrates no hemodynamically limiting stenosis, occlusive disease or dissection of the major extracranial arteries. If this radiology report contains a blank impression section, it is an incomplete radiology report. Please contact the interpreting radiologist or applicable radiology division as soon as possible to obtain the completed interpretation. Workstation ID: [id number] Up-to-date CT equipment and radiation dose reduction techniques were employed. CTDIvol: 2.9 - 44.4 mGy. DLP: 1276 mGy-cm.The following accession numbers are related to this dose report [id number] Up-to-date CT equipment and radiation dose reduction techniques were employed. CTDIvol: 2.9 - 44.4 mGy. DLP: 1276 mGy-cm.The following accession numbers are related to this dose report [id number] [facility] 07/30/2023 10:30 AM EST EXAMINATION: CT of head without contrast CTA of head and neck with contrast TECHNIQUE: CT of head without contrast administration. Multiplanar reformats created. CT angiogram of head and [...] 37-year-old female with left supraclinoid ICA stenosis. Stroke/TIA, determine embolic source I66.9 - I10 - Occlusion and stenosis of unspecified cerebral artery COMPARISON: Diagnostic [facility] Neuroangiography studies of 12/22 and 12/02/2022; outside brain MRI [address] 08/17/2022.. FINDINGS: HEAD CT: There are subtle foci of juxtacortical tissue loss at the left superior frontal precentral parasagittal convexity likely representing chronic microischemic/microembolic sequela in the region of the left MCA-WHITLEY watershed. No intracranial hemorrhage, acute infarct, or mass effect. Chavez-white matter differentiation is otherwise preserved. The configuration of the visualized posterior fossa structures is within normal limits. Ventricles and extra-axial spaces are normal. No hydrocephalus. Visualized portions of the orbits, maxine mastoids, skull base and craniocervical junction are normal. No fluid levels or post obstructive changes of the paranasal sinuses or mastoids.. HEAD CTA The anterior circulation demonstrates relatively short, 5 mm segment of moderately severe (approximately 70%) stenosis of the left supraclinoid ICA. The stenosis may reflect chronic sequela of intracranial ICA dissection. There is an infundibular origin of small left P-comm. No other hemodynamically significant stenosis, aneurysm, dissection, or arteriovenous fistula/malformation of the anterior circulation is seen. The posterior circulation demonstrates no hemodynamically significant stenosis, aneurysm, dissection, or arteriovenous fistula/malformation. No abnormality of the intracranial vertebrobasilar system is [...] soft tissues of the neck appear normal. Lung apices appear unremarkable. Resulting Agency Comment [id number] Procedure Note Royer Linda MD - 07/30/2023 [...] possible to obtain thecompleted interpretation. Workstation ID: [id number] Up-to-date CT equipment and radiation dose reduction techniques wereemployed. CTDIvol: 2.9 - 44.4 mGy. DLP: 1276 mGy-cm.The followingaccession numbers are related to this dose report [id number] Up-to-date CT equipment and radiation dose reduction techniques wereemployed. CTDIvol: 2.9 - 44.4 mGy. DLP: 1276 mGy-cm.The followingaccession numbers are related to this dose report [id number] Daniella Lunsford NP IMG CT PROCEDURES Uma l Result documented in this encounter Visit Diagnoses Diagnosis Stenosis of intracranial vessel- Primary Stenosis of intracranial vessel documented in this encounter Care Teams Administrative Hearing Officer Relationship Specialty Start Date End Date Kendall Cevallos [address] [place] [id number] PCP - General Internal Medicine 10/09/22 documented as of this encounter
--- OUTSIDE RECORDS SUMMARY | 2025-05-04 12:28 | XMS_ITS ---
Author Name [facility] Organization Unknown Care Team Organization Name Specialty Phone Email Start Date End Da te [facility] Marta Luo Primary Care 11/18/2022 04/04/2024 [facility] Dorita Dia Primary Care 06/24/20222023
--- OUTSIDE RECORDS SUMMARY | 2025-05-04 12:28 | XMS_ITS | Encounter Summary ---
Author Organization [facility] Address [address] [place] [address] Care Team Providers Care Cold Type Artist Name Role Phone Kendall Cevallos Primary Care Provide r Encounter Details Date Type Department Care Team (Late Contact Info) Description 07/02/2023 Orders Only [facility] Interventional Radiology [address] [place] [address] Ishaan Solano DO [address] [place] [address] Social History Tobacco Use Types Packs/Day Years [...] on filedocumented in this encounter Care Teams Cold Type Artist Relationship Specialty Start Date End Date Kendall Cevallos [address] [place] [address] PCP - General Internal Medicine 10/09/22 documented as of this encounter
--- OUTSIDE RECORDS SUMMARY | 2025-05-04 12:28 | XMS_ITS | Encounter Summary ---
Author Organization [facility] Address [address] [place] [address] Care Team Providers Care Mixer Pigment Name Role Phone Kendall Cevallos Primary Care Provide r Encounter Details Date Type Department Care Team (Late st Contact Info) Description 12/19/2024 [facility] Neuro Interventional Radiology [address] [place], [place] [phone] Piyush Martinez MD [address] [place], [place] [phone] Medical note Social History Tobacco Use Types [...] on filedocumented in this encounter Care Teams Mixer Pigment Relationship Specialty Start Date End Date Kendall Cevallos [address] [place] [id number] PCP - General Internal Medicine 10/09/22 documented as of this encounter
--- OUTSIDE RECORDS SUMMARY | 2025-05-04 12:28 | XMS_ITS | Clinical Summary ---
Author Organization [facility] Address [address] [place] [address] Care Team Providers Care River Rafting Guide Name Role Phone Cevallos, Kendall Henriquezbobby Mazariegos Primary Care Provide r Allergies No [...] 11 12/22/2022 3:31 PM EDT 3 Active Family History Medical History Relation Name Comments [...] 102 12/22/2022 4:30 PM EDT Temperature 36.6 C (97.9 F) 12/22/2022 12:57 PM EDT Respiratory Rate 12 12/22/2022 4:30 PM EDT [...] of 2 - 13+ 2-dose series) 1997 Alcohol/Substance Use Screening 08/17/2024 Depression Screening and Follow-Up 08/17/2024 Social Drivers of Health Annual Screening 08/17/2024 Mammogram 2024 COVID-19 Vaccine ( season) 2025 Influenza Vaccine (#1) 2025 DTaP,Tdap,and Td Vaccines (8 - Td [...] this topic Medical Devices Implanted Type Area Custodian Supervisor Device Identifier Shelf Expiration Date Model / Serial / Lot Device Closure Vascular 5fr Vascade - [id number] Implanted:Qty: 1 on 12/02/2022 at [facility] Implant [employer] [id number] X- [id number] / / Device Closure Vascular 5fr Vascade - [id number] Implanted:Qty: 1 on 12/22/2022 at [facility] Implant [employer] [id number] X- [id number] / / Insurance [employer] Care Teams River Rafting Guide Relationship Specialty Start Date End Date Kendall Cevallos [address] [place] [phone] PCP - General Internal Medicine 10/09/22
--- OUTSIDE RECORDS SUMMARY | 2025-05-04 12:28 | XMS_ITS | Encounter Summary ---
Author Organization [facility] Address [address] [place] [address] Care Team Providers Care Docket Specialist Name Role Phone Kendall Cevallos Primary Care Provide r Encounter Details Date Type Department Care Team ([facility] Contact Info) Description 11/04/2022 Orders Only [facility] Interventional Radiology [address] [place], [place] [phone] Colleen Salcedo LPN Social History Tobacco Use [...] on filedocumented in this encounter Care Teams Docket Specialist Relationship Specialty Start Date End Date Kendall Cevallos [address] [place] [address] PCP - General Internal Medicine 10/09/22 documented as of this encounter
--- OUTSIDE RECORDS SUMMARY | 2025-05-04 12:28 | XMS_ITS | Encounter Summary ---
Author Organization [facility] Address [address] [place] [address] Care Team Providers Care Grease Rack Worker Name Role Phone Kendall Cevallos Primary Care Provide r Encounter Details Date Type Department Care Team (Late Contact Info) Description 12/22/2022 Telephone [facility] Neuro Interventional Radiology [address] [place] [phone] Dejan Benavides PA [address] [place] [phone] Social History Tobacco Use Types Packs/Day Years [...] on filedocumented in this encounter Care Teams Grease Rack Worker Relationship Specialty Start Date End Date Kendall Cevallos [address] [place] [phone] PCP - General Internal Medicine 10/09/22 documented as of this encounter
--- OUTSIDE RECORDS SUMMARY | 2025-05-04 12:28 | XMS_ITS | Clinical Summary ---
Author Organization [facility] [address] [place] [address] [place] [phone] Phone Care Team Providers Care Research Affiliate Name Role Phone Marta Lagos MD Primary [...] been given in 3 months with me. Immunizations Name Administration Dates Next Due Tdap [...] 88 11/28/2024 9:36 AM EDT Temperature 36 C (96.8 F) 11/28/2024 9:36 AM EDT Respiratory Rate 18 [...] 8:30 AM EDT Office Visit Adult Medicine [address] [phone] Marta Lagos MD [address] [place] [address] Health Maintenance Due Date Last Done Comments Breast Cancer Screening 1984 Hepatitis B Vaccines (1 of 3 - 19+ 3-dose series) 2003 Social Influencers of Health Screening 07/26/2022 Hypertension/CHF/CAD Annual BMP Blood Test 07/17/2024 07/17/2023 Depression Screening 08/17/2024 COVID-19 Vaccine ( - 2023-2 5 season) 2025 Influenza Vaccine (#1) 2025 Cervical Cancer Screening: HPV 10/31/2027 10/30/2022 [...] 5 Years) and At-Risk Patients (6 to 49 Years) Aged Out No longer eligible b [...] Results * Annual BMP Blood Test (07/17/2023) Annual BMP Blood Test abstracted us Historical Provider HEALTH MAINTENANCE Final Result * Lipid panel (07/17/2023) LDL/HDL Ratio 3 0 - 4 Triglycerides 98 0 - 150 mg/dL Cholesterol 113 0 - 200 mg/dL HDL 40 >=40 mg/dL LDL Cholesterol 54 0 - 100 mg/dL Blood Venous blood specimen / Unknown Historical Provider LAB BLOOD ORDERABLES Uma l Result * Cervical Cancer Screening: HPV (10/30/2022) Pathologist [facility] Cervical Cancer Screening: HPV abstracted, negative Historical Provider HEALTH MAINTENANCE Final Result * Hepatitis C Screening (10/30/2022) Pathologist [facility] Hepatitis C Screening abstracted Historical Provider HEALTH MAINTENANCE Final Result * HIV Screening (12/24/2017) [facility] HIV Screening abstracted Historical Provider HEALTH MAINTENANCE Final Result from Last 3 Months or Most Recently Relevant to Health Maintenance Insurance [facility] Care Teams Research Affiliate Relationship Specialty Start Date End Date Marta Lagos MD [address] [place] [phone] PCP - General Internal Medicine 03/18/22
--- OUTSIDE RECORDS SUMMARY | 2025-05-04 12:28 | XMS_ITS | Encounter Summary ---
Author Organization [facility] Address [address] [place] [address] Care Team Providers Care Interlacer Name Role Phone Kendall Cevallos Primary Care Provide r Encounter Details Date Type Department Care Team ([facility] Contact Info) Description 07/06/2023 Telephone [facility] Neuro Interventional Radiology [address] [place], [place] [phone] Piyush Martinez MD [address] [place], [place] [phone] Social History Tobacco Use Types Packs/Day Years [...] on filedocumented in this encounter Care Teams Interlacer Relationship Specialty Start Date End Date Kendall Cevallos [address] [place] [address] PCP - General Internal Medicine 10/09/22 documented as of this encounter
--- NOTE | 2025-05-05 09:20 | MHC.OFFVIS ---
Vital Signs 05/04/25 10:41 Height 5 ft 1 in Weight 246 lb 14.684 oz BMI 46.6 BP 122/78 Blood Pressure Location Lt brachial Position Sitting Pulse 75 Pulse Source Pulse Oximeter Pulse Oximetry (%) 99 Oxygen Delivery Method Room Air Intake Visit Reasons: Obstructive sleep apnea Allergies No Known Allergies (No Known Allergies*) Allergy (Unknown, Verified 05/04/25 11:07) Medication List - Last Reconciled 05/04/25 by Danyelle Santana MD amlodipine 5 mg PO DAILY aspirin 81 mg PO DAILY atorvastatin 80 mg PO BEDTIME ticagrelor (Brilinta) 90 mg PO BID valsartan 80 mg PO DAILY HPI HPI Obstructive sleep apnea: Details: THIS PATIENT WHO IS MORBIDLY OBESE AND HAS DIAGNOSIS OF OBSTRUCTIVE SLEEP APNEA, COMES AFTER 4 MONTHS FOR ROUTINE FOLLOW-UP. SHE HAS BEEN USING THE CPAP VERY REGULARLY. BUT DURING THE LAST WEEK DUE TO SOME NASAL CONGESTION SHE IS HAVING HARD TIME TO USE THE MASK. SHE HAS NOT BEEN ABLE TO LOSE MUCH WEIGHT. DENIES ANY COUGH EXPECTORATION OR WHEEZING. FOR[facility]LY [facility], [facility] Medical History Allergic rhinitis Restrictive lung disease Fatty liver QUENTIN (obstructive sleep apnea) Morbid obesity Hypertension Surgical History Previous section Family History Mother Sleep apnea Diabetes Father Diabetes Dementia Brother No problems noted. Brother No problems noted. Brother No problems noted. Brother No problems noted. Brother No problems noted. Brother No problems noted. Sister Obesity Sister No problems noted. Son No problems noted. Son No problems noted. Daughter No problems noted. Other No family history of cerebrovascular accident (CVA) Social History Alcohol intake: former Patient Tobacco Use Status: Former Tobacco user Years Smoked: 2012 Substance Use Type: Marijuana service: No Current occupational status: employed Review of Systems Const All systems reviewed & are unremarkable except as noted in HPI and below Eyes Reports no additional complaints ENT Reports nasal congestion (Mild intermittent) Card Denies chest pain, Denies irregular heart rhythm, Denies leg edema, Denies lightheadedness and Reports dyspnea on exertion (Mild) Resp Denies cough, Reports dyspnea on exertion (Mild) and Denies wheezing GI Reports no additional complaints Reports no additional complaints Musc Reports no additional complaints Skin/Breast Reports system reviewed and no additional complaints, except as documented Neuro Reports no additional complaints (H/o recurrent strokes, recent workup at .) Psych Reports no additional complaints Endo Reports no additional complaints Franklin/Lymph Reports no additional complaints Aller/Immun Denies wheezing Physical Exam Vital Signs: Last Vital Signs Pulse 75 05/04/25 10:41 BP 122/78 05/04/25 10:41 Pulse Ox 99 05/04/25 10:41 Oxygen Delivery Method Room Air 05/04/25 10:41 BMI result Body Mass Index 46.6 Patient is grossly obese with a round face. NECK CIRCUMFERENCE 17 IN. MALLAMPATI SCALE 4. Const General: comfortable, no acute distress, alert and awake Orientation/consciousness: patient oriented x3 HEENT Head: Yes normal to inspection General nose exam: No nasal polyps present, No nasal discharge present and Other nasal findings present (DOES HAVE ACTIVE NASAL CONGESTION ON BOTH SIDES) Face and sinus: Yes sinuses nontender Mouth: oropharynx abnormals (NARROW AND CROWDED, MALLAMPATI SCALE 4) Throat: Yes posterior oropharynx normal Eyes General: appearance normal, both eyes and all related structures Neck Neck: Yes normal visual inspection, Yes no lymphadenopathy, Yes trachea midline, Yes no JVD and Yes other (NECK SIZE 17 IN) Thyroid: Thyroid normal Chest Chest palpation & inspection: normal inspection of the chest, normal palpation of entire chest wall and no tenderness Resp Other: PERCUSSION NOTE IS HARDLY PERCEPTIBLE BECAUSE OF THE THICK CHEST WALL. BREATH SOUNDS ARE DISTANT DUE TO OBESITY, AND ESPECIALLY DECREASED OVER THE BASILAR AREAS. BOTH LUNGS ARE CLEAR TO AUSCULTATION. Cardio Palpation: normal PMI Rate: regular rate Rhythm: regular rhythm Heart sounds: no gallops and no murmurs Peripheral pulses: Peripheral pulses 2+ throughout GI Palpation (GI): Soft to palpation, nontender, No hepatosplenomegaly present, no masses and Other GI palpation findings present (ABDOMEN IS OBESE AND PROTUBERANT) Auscultation: normal bowel sounds Back/Spine/Pelvis Thoracic/Lumbar Spine: thoracic and lumbar spine normal to inspection Skin General skin exam: no rashes or lesions noted Neuro General: patient oriented x3 and no focal motor deficits Cranial nerves: Yes CN's II-XII intact bilaterally Extrem General: Yes normal to inspection, Yes no clubbing, cyanosis or edema and Yes no calf tenderness Psych Appearance: grossly normal and well kempt Speech and movement: Normal speech and movement present Results Reviewed Results Reviewed: COMPLIANCE REPORT FOR THE LAST 30 NIGHTS IS REVIEWED AND SHE HAS BEEN USING REGULARLY, EVERY NIGHT. EXCEPT FOR A FEW NIGHTS DUE TO NASAL CONGESTION. THERE IS NOT MUCH AIR LEAK AND RESIDUAL AHI 1.3. Assessment & Plan Assessment & Plan (1) Morbid obesity: Comment: PATIENT REMAINS MORBIDLY OBESE. SHE HAS FALLEN OUT OF THE WEIGHT MANAGEMENT PROGRAM SHE COULD NOT UNDERGO SURGERY. NOW HER WEIGHT IS GRADUALLY GOING UP. Code(s): E66.01 - Morbid (severe) obesity due to excess calories Category: Medical Plan: PATIENT IS THINKING OF JOINING THE WEIGHT MANAGEMENT PROGRAM AGAIN (2) Restrictive lung disease: Comment: MILD RESTRICTIVE PULMONARY DISORDER WHICH IS OBVIOUSLY SECONDARY TO HER MORBID OBESITY. SHE DOES NOT HAVE ANY SIGNIFICANT DEGREE OF OBSTRUCTIVE AIRWAY DISORDER. Code(s): J98.4 - Other disorders of lung Category: Medical Plan: AGAIN WEIGHT REDUCTION AND DEEP BREATHING EXERCISES OR INSTRUCTED (3) QUENTIN (obstructive sleep apnea): Comment: PATIENT IS A REGULAR USER OF CPAP EVERY NIGHT, WITH VERY GOOD COMPLIANCE., BUT on some nights has hard time to use the mask due to nasal congestion. Code(s): G47.33 - Obstructive sleep apnea (adult) (pediatric) Category: Medical Plan: IPRATROPIUM NASAL SPRAY PRESCRIBED TO BE USED BEFORE PUTTING ON THE MASK (4) Allergic rhinitis: Comment: She complains of frequent bouts of nasal congestion, it seems to be due to allergic/vasomotor rhinitis. Code(s): J30.9 - Allergic rhinitis, unspecified Category: Medical Plan: NOTED ABOVE IPRATROPIUM BROMIDE NASAL SPRAY IS ORDERED Medications: New ipratropium bromide administer into each nostril 2 sprays in each nostril before putting on the mask 2 sprays intranasal TID-QID PRN 15 mL 4RF nasal congestion 30 days Coding Level of Care Code Est Pt Level 3 (60088) Diagnoses Morbid obesity E66.01 Restrictive lung disease J98.4 QUENTIN (obstructive sleep apnea) G47.33 Allergic rhinitis J30.9
== END 2025-05-04 11:07 | disposition home or self-care (01) ==
LOC: HO.HPS 10:29
PROVIDERS: PCP Internal Medicine; Visit Provider Internal Medicine
DX: E66.01 Morbid (severe) obesity due to excess calories (principal); J98.4 Other disorders of lung; G47.33 Obstructive sleep apnea (adult) (pediatric); J30.9 Allergic rhinitis, unspecified
CPT/HCPCS: 99213

== ENCOUNTER → 2025-05-04 10:29 | Outpatient (BNVA) | payer OTHER, SELFPAY | PROVIDERS: PCP Internal Medicine; Visit Provider Internal Medicine | DX: G47.33 Obstructive sleep apnea (adult) (pediatric) (principal); J98.4 Other disorders of lung; J30.9 Allergic rhinitis, unspecified; E66.01 Morbid (severe) obesity due to excess calories; Z68.42 Body mass index [BMI] 45.0-49.9, adult | CPT/HCPCS: 99212 ==